=== PATIENT | male | born 1960 | race Caucasian/White ===

== ENCOUNTER → 2019-09-04 | Outpatient (CLI) | payer MEDICARE | LOC: LAB FS 15:03 | PROVIDERS: ATTEND Family Medicine | DX: R50.9 Fever, unspecified (principal) | CPT/HCPCS: 87040 ==

== ENCOUNTER → 2019-09-11 | Outpatient (CLI) | payer MEDICARE ==
--- NOTE | 2019-09-11 12:57 | Diagnostic Imaging Report ---
PROCEDURE: CT head without contrast. TECHNIQUE: Multiple contiguous axial images were obtained through the brain without the use of intravenous contrast. Auto Exposure Controls were utilized during the CT exam to meet ALARA standards for radiation dose reduction. INDICATION: Acute non-intractable headache x2 weeks. COMPARISON: None. FINDINGS: There is a 1.3 x 2.2 cm area of fairly well circumscribed decreased attenuation involving the medial left occipital lobe just medial to the occipital horn of the left lateral ventricle. There may be some focal ex vacuo dilatation of the adjacent posterior horn of the left lateral ventricle as well. Findings are suggestive of nonacute infarct. Small old lacunar infarcts involving the internal capsule and thalamus on the right are also noted. There is no suspicious loss of aguero-white matter junction differentiation to suggest an acute territorial infarct. There is no mass effect or midline shift. Ventricles and cortical sulci are otherwise diffusely prominent consistent with background age-related parenchymal volume loss. No intra or extra-axial intracranial hemorrhage is seen. No other extra-axial masses or fluid collections are identified. Bony calvarium is intact. Paranasal sinuses show mild scattered mucosal thickening. Mastoid air cells are clear. Left globe implant is noted. IMPRESSION: 1. No acute intracranial abnormality. No CT evidence of acute infarct, mass, nor hemorrhage. 2. 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 3. Background age-related parenchymal volume loss. Dictated by: Dictated on workstation # [id number]
== END ==
LOC: RAD FS 12:20
PROVIDERS: ATTEND Family Medicine
DX: G93.89 Other specified disorders of brain (principal); R51 Headache; Z86.73 Personal history of transient ischemic attack (TIA), and cerebral infarction without residual deficits
CPT/HCPCS: 70450

== ENCOUNTER 2020-01-21 01:51 | Emergency (ER) | payer MEDICARE ==
[~2020-01-21] VITALS: Ht 182.8 cm; Wt 61.3 kg
--- OUTSIDE RECORDS SUMMARY | 2020-01-21 01:56 | XMS REPORT | Continuity of Care Document ---
Author Organization Unknown Address Unknown Phone Unavailable Allergies There is no data. Medications There is no data. Problems Date Dx Coded Attending Type Code Diagnosis Diagnosed By 09/10/2019 SELF EJ SWAN Ot R50.9 FEVER, UNSPECIFIED 09/15/2019 SELF EJ SWAN Ot G93.89 OTHER SPECIFIED DISORDERS OF BRAIN 09/15/2019 SELF EJ SWAN Ot R51 HEADACHE 09/15/2019 SELF EJ SWAN Ot Z86.73 PRSNL HX OF TIA (TIA), AND CEREB INFRC W 09/25/2019 SELF EJ SWAN Ot R50.9 FEVER, UNSPECIFIED 10/07/2019 SELF EJ SWAN Ot G93.89 OTHER SPECIFIED DISORDERS OF BRAIN 10/07/2019 SELF EJ SWAN Ot R51 HEADACHE 10/07/2019 SELF EJ SWAN Ot Z86.73 PRSNL HX OF TIA (TIA), AND CEREB INFRC W Procedures There is no data. Results Test Result Range PDM - 09 PANEL (PROFILE 1) - 04/25/19 10 :02 Prescribed Drug 1 Clonazepam NRG Creatinine 141.9 mg/dL > or = 20.0 pH 7.49 4.5 - 9.0 Oxidant NEGATIVE mcg/mL <200 Amphetamines NEGATIVE ng/mL <500 medMATCH Amphetamines CONSISTENT NRG Benzodiazepines POSITIVE ng/mL <100 Marijuana Metabolite NEGATIVE ng/mL <20 medMATCH Marijuana Metab CONSISTENT NRG Cocaine Metabolite NEGATIVE ng/mL <150 medMATCH Cocaine Metab CONSISTENT NRG Opiates POSITIVE ng/mL <100 Oxycodone NEGATIVE ng/mL <100 medMATCH Oxycodone CONSISTENT NRG COMMENT NRG Alphahydroxyalprazolam 113 ng/mL <25 medMATCH aOH alprazolam INCONSISTENT NR G Alphahydroxymidazolam NEGATIVE ng/mL < 50 medMATCH aOH midazolam CONSISTENT NRG Alphahydroxytriazolam NEGATIVE ng/mL < 50 medMATCH aOH triazolam CONSISTENT NRG Aminoclonazepam NEGATIVE ng/mL <25 medMATCH Aminoclonazepam INCONSISTENT N RG Hydroxyethylflurazepam NEGATIVE ng/mL <50 medMATCH OH,Et flurazepam CONSISTENT NR G Lorazepam NEGATIVE ng/mL <50 medMATCH Lorazepam CONSISTENT NRG Nordiazepam NEGATIVE ng/mL <50 medMATCH Nordiazepam CONSISTENT NRG Oxazepam NEGATIVE ng/mL <50 medMATCH Oxazepam CONSISTENT NRG Temazepam NEGATIVE ng/mL <50 medMATCH Temazepam CONSISTENT NRG Codeine NEGATIVE ng/mL <50 medMATCH Codeine CONSISTENT NRG Hydrocodone 601 ng/mL <50 medMATCH Hydrocodone INCONSISTENT NRG Hydromorphone 298 ng/mL <50 medMATCH Hydromorphone INCONSISTENT NRG Morphine NEGATIVE ng/mL <50 medMATCH Morphine CONSISTENT NRG Norhydrocodone 1121 ng/mL <50 medMATCH Norhydrocodone INCONSISTENT NR G Barbiturates NEGATIVE ng/mL <300 medMATCH Barbiturates CONSISTENT NRG Methadone Metabolite NEGATIVE ng/mL <100 medMATCH Methadone Metab CONSISTENT NRG Phencyclidine NEGATIVE ng/mL <25 medMATCH Phencyclidine CONSISTENT NRG Bacterial blood culture - 09/04/19 15:25 Bacterial blood culture NG NRG ESR/SED RATE - 09/11/19 12:43 SED RATE BY MODIFIED WESTERGREN 2 mm/h < OR = 20 CRP - 09/11/19 12:43 C-REACTIVE PROTEIN 24.5 mg/L <8.0 KENYETTA - 09/24/19 10:42 KENYETTA SCREEN, IFA NEGATIVE NEGATIVE PDM - 09 PANEL (PROFILE 1) - 11/27/19 14 :22 Creatinine 90.9 mg/dL > or = 20.0 pH 7.1 4.5-9.0 Oxidant NEGATIVE mcg/mL <200 Amphetamines NEGATIVE ng/mL <500 medMATCH Amphetamines CONSISTENT NRG Benzodiazepines NEGATIVE ng/mL <100 medMATCH Benzodiazepines CONSISTENT NRG Marijuana Metabolite NEGATIVE ng/mL <20 medMATCH Marijuana Metab CONSISTENT NRG Cocaine Metabolite NEGATIVE ng/mL <150 medMATCH Cocaine Metab CONSISTENT NRG Opiates NEGATIVE ng/mL <100 medMATCH Opiates CONSISTENT NRG Oxycodone NEGATIVE ng/mL <100 medMATCH Oxycodone CONSISTENT NRG COMMENT NRG Barbiturates NEGATIVE ng/mL <300 medMATCH Barbiturates CONSISTENT NRG Methadone Metabolite NEGATIVE ng/mL <100 medMATCH Methadone Metab CONSISTENT NRG Phencyclidine NEGATIVE ng/mL <25 medMATCH Phencyclidine CONSISTENT NRG Encounters ACCT No. Visit Date/Time Discharge Status Pt. Type Provider Facility Loc./Unit Complaint [id number] 09/04/2019 15:00:00 09/04/2019 23:59: 59 [facility] [id number] 11/27/2019 13:40:00 Document Registration [id number] 09/24/2019 10:30:00 Document Registration [id number] 09/11/2019 09:40:00 Document Registration [id number] 04/25/2019 09:30:00 Document Registration [id number] 09/11/2019 12:20:00 23:59:59 CLS Outpatient SELF EJ SWAN [facility] RAD FS ACUTE NONINTRACTABLE HE ADACHE [id number] 09/04/2019 15:03:00 23:59:59 CLS Outpatient SELF EJ SWAN [facility] LAB FS R50.9
--- NOTE | 2020-01-21 02:15 | ED GI ---
General Chief Complaint: Abdominal/GI Problems Stated Complaint: VOMITING BLOOD Nursing Triage Note: Patient arrives via EMS with complaints of blood in his vomit. Patient does have a history and current issue with alcohol abuse. Patient states he drank 1 pint of hard liquor but doesn't state what it was. Patient states he has been vomiting blood for 1.5 days. Patient describes it as tinged with blood and denies vomiting blood only. Patient is uncooperative at times. Sepsis Screen: No Definite Risk History of Present Illness Date Seen by Provider: Jan 21, 2020 Time Seen by Provider: 01:45 Timing/Duration: 1-2 Days Severity/Quality: Mild Location: Generalized Abdomen Radiation: No Radiation Activities at Onset: None Modifying Factors: Improves With Eating, Improves With Vomiting Associated Symptoms: No Chest Pain, No Fatigue, No Headache, No Weakness Allergies and Home Medications Allergies Coded Allergies: No Known Drug Allergies (Unverified , 01/21/20) Patient Home Medication List Home Medication List Reviewed: Yes Review of Systems Review of Systems Constitutional: No chills, No dizziness, No fever EENTM: No Blurred Vision Respiratory: Denies Shortness of Air, Denies Wheezing Cardiovascular: Denies Chest Pain, Denies Irregular Heart Rate Gastrointestinal: Abdominal Pain; Denies Constipated, Denies Diarrhea; Nausea, Vomiting Genitourinary: Denies Burning, Denies Drainage Musculoskeletal: No back pain, No joint swelling Skin: No change in color, No rash Psychiatric/Neurological: Denies Headache, Denies Numbness, Denies Tingling Past Xthokbo-Mmrgpi-Ilwiud Hx Past Med/Social Hx: Reviewed Nursing Past Med/Soc Hx Patient Social History Recent Foreign Travel: No Contact w/Someone Who Travel: No Recent Infectious Disease Expo: No Physical Abuse: No Sexual Abuse: No Mistreated: No Fear: No Physical Exam Vital Signs Vital Signs - First Documented 01/21/20 01:51 Temp 36.9 Pulse 88 Resp 20 B/P (MAP) 130/76 (94) Pulse Ox 96 O2 Delivery Room Air Capillary Refill : Less Than 3 Seconds Height/Weight/BMI Height: '" Weight: lbs. oz. kg; 18.00 BMI Method: General Appearance: WD/WN, no apparent distress, other (thoroughly intoxicated) HEENT: PERRL/EOMI, normal ENT inspection, TMs normal, pharynx normal Neck: non-tender, full range of motion Respiratory: lungs clear, normal breath sounds Cardiovascular: regular rate, rhythm, no edema Gastrointestinal: normal bowel sounds, non tender, soft Extremities: normal range of motion, normal inspection Neurologic/Psychiatric: no motor/sensory deficits, normal mood/affect, oriented x 3, other (intoxicated) Skin: normal color, warm/dry Progress/Results/Core Measures Results/Orders Lab Results Laboratory Tests Test 01/21/20 02:20 Range/Units White Blood Count 7.6 4.3-11.0 10^3/uL Red Blood Count 4.13 L 4.35-5.85 10^6/uL Hemoglobin 13.5 13.3-17.7 G/DL Hematocrit 42 40-54 % Mean Corpuscular Volume 101 H 80-99 FL Mean Corpuscular Hemoglobin 33 25-34 PG Mean Corpuscular Hemoglobin Concent 33 32-36 G/DL Red Cell Distribution Width 13.3 10.0-14.5 % Platelet Count 218 130-400 10^3/uL Mean Platelet Volume 9.3 7.4-10.4 FL Neutrophils (%) (Auto) 39 L 42-75 % Lymphocytes (%) (Auto) 41 12-44 % Monocytes (%) (Auto) 7 0-12 % Eosinophils (%) (Auto) 11 H 0-10 % Basophils (%) (Auto) 1 0-10 % Neutrophils # (Auto) 3.0 1.8-7.8 X 10^3 Lymphocytes # (Auto) 3.1 1.0-4.0 X 10^3 Monocytes # (Auto) 0.5 0.0-1.0 X 10^3 Eosinophils # (Auto) 0.9 H 0.0-0.3 10^3/uL Basophils # (Auto) 0.1 0.0-0.1 10^3/uL Prothrombin Time 13.1 12.2-14.7 SEC INR Comment 1.0 0.8-1.4 Activated Partial Thromboplast Time 28 24-35 SEC Sodium Level 146 H 135-145 MMOL/L Potassium Level 3.8 3.6-5.0 MMOL/L Chloride Level 107 98-107 MMOL/L Carbon Dioxide Level 25 21-32 MMOL/L Anion Gap 14 5-14 MMOL/L Blood Urea Nitrogen 12 7-18 MG/DL Creatinine 0.97 0.60-1.30 MG/DL Estimat Glomerular Filtration Rate > 60 BUN/Creatinine Ratio 12 Glucose Level 86 70-105 MG/DL Calcium Level 8.8 8.5-10.1 MG/DL Corrected Calcium 8.7 8.5-10.1 MG/DL Total Bilirubin 0.2 0.1-1.0 MG/DL Aspartate Amino Transf (AST/SGOT) 14 5-34 U/L Alanine Aminotransferase (ALT/SGPT) 9 0-55 U/L Alkaline Phosphatase 46 40-136 U/L Total Protein 6.9 6.4-8.2 GM/DL Albumin 4.1 3.2-4.5 GM/DL Serum Alcohol 294 H <10 MG/DL My Orders Orders - JANEY ALTAMIRANO JR, MD Cbc With Automated Diff (01/21/20 02:11) Comprehensive Metabolic Panel (01/21/20 02:11) Alcohol (01/21/20 02:11) Protime With Inr (01/21/20 02:11) Partial Thromboplastin Time (01/21/20 02:11) Chest 1 View Ap/Pa Only (01/21/20 02:11) Vital Signs/I&O 01/21/20 01:51 Temp 36.9 Pulse 88 Resp 20 B/P (MAP) 130/76 (94) Pulse Ox 96 O2 Delivery Room Air Blood Pressure Mean: 94 Progress Progress Note : Time: 03:05 Progress Note Blood work looks good except for alcohol level being 294 discussed above blood streaking in the vomitus and will follow up with primary care physician no other evidence of issues at this time Departure Impression Primary Impression: Alcohol abuse Disposition: 01 HOME, SELF-CARE Condition: Stable Departure-Patient Inst. Referrals: EJ LUI MD (PCP/Family) Primary Care Physician Patient Instructions: Effects of Alcohol on Your Health, Alcohol Abuse and Alcoholism (DC) JANEY ALTAMIRANO JR, MD Jan 21, 2020 02:15
[2020-01-21 02:43] LABS: WHITE BLOOD COUNT 7.6 10^3/uL (4.3-11.0)
[2020-01-21 02:44] LABS: BASOPHILS % (AUTO) 1 % (0-10); EOSINOPHILS % (AUTO) 11 % (0-10); HEMATOCRIT 42 % (40-54); HEMOGLOBIN 13.5 G/DL (13.3-17.7); LYMPHOCYTES % (AUTO) 41 % (12-44); MEAN CORPUSCULAR HEMOGLOBIN 33 PG (25-34); MEAN CORPUSCULAR HGB CONC 33 G/DL (32-36); MEAN CORPUSCULAR VOLUME 101 FL (80-99); MEAN PLATELET VOLUME 9.3 FL (7.4-10.4); MONOCYTES % (AUTO) 7 % (0-12); NEUTROPHILS % (AUTO) 39 % (42-75); PLATELET COUNT 218 10^3/uL (130-400); RED CELL DISTRIBUTION WIDTH 13.3 % (10.0-14.5)
[2020-01-21 02:45] LABS: BASOPHILS # (AUTO) 0.1 10^3/uL (0.0-0.1); EOSINOPHILS # (AUTO) 0.9 10^3/uL (0.0-0.3); LYMPHOCYTES # (AUTO) 3.1 X 10^3 (1.0-4.0); MONOCYTES # (AUTO) 0.5 X 10^3 (0.0-1.0)
[2020-01-21 02:58] LABS: CHLORIDE 107 MMOL/L (98-107); POTASSIUM 3.8 MMOL/L (3.6-5.0); PROTHROMBIN TIME PATIENT 13.1 SEC (12.2-14.7); SODIUM 146 MMOL/L (135-145)
[2020-01-21 02:59] LABS: ALANINE AMINOTRANSFERASE 9 U/L (0-55); ALBUMIN 4.1 GM/DL (3.2-4.5); ALKALINE PHOSPHATASE 46 U/L (40-136); BILIRUBIN,TOTAL 0.2 MG/DL (0.1-1.0); BUN/CREATININE RATIO 12; CALCIUM 8.8 MG/DL (8.5-10.1); CARBON DIOXIDE 25 MMOL/L (21-32); CREATININE SERUM 0.97 MG/DL (0.60-1.30); GFR ESTIMATED > 60; GLUCOSE 86 MG/DL (70-105); TOTAL PROTEIN 6.9 GM/DL (6.4-8.2)
[2020-01-21 03:10] VITALS: BP 126/82
[2020-01-21] MEDS ORDERED: ACETAMINOPHEN 500 MG TAB (TYLENOL) PO ONE (03:15)
--- NOTE | 2020-01-21 06:30 | Diagnostic Imaging Report ---
INDICATION: Shortness of breath. Hemoptysis. FINDINGS: Deformities of the right lateral ribs appears old in nature. The lungs are well aerated. No acute infiltrates are demonstrated. There is question of possible pulmonary nodules mid right lung. No pneumothorax or pleural effusion. Heart is not enlarged. IMPRESSION: 1. Question of pulmonary nodules right mid lung. 2. Rib deformities right lateral chest likely old in nature. No previous studies for comparison. Dictated by: Dictated on workstation # [id number]
== END 2020-01-21 03:10 | disposition home or self-care (01) ==
LOC: ER FS 01:51
DX: F10.10 Alcohol abuse, uncomplicated (principal); Y90.8 Blood alcohol level of 240 mg/100 ml or more
CPT/HCPCS: 36415; 71045; 80053; 80320; 85025; 85610; 85730

== ENCOUNTER 2020-02-03 18:09 | Inpatient (IN) | payer OTHER, MEDICARE ==
[~2020-02-03] VITALS: Ht 152.4 cm; Wt 62.3 kg
[2020-02-03] MEDS ORDERED: NS IV 1000 ML 1,000 ML IV STA (18:18)
[2020-02-03] MEDS ORDERED: ONDANSETRON 4 MG/2 ML (SDV) Z0FRAN ONE (18:23)
--- NOTE | 2020-02-03 18:26 | ED Cardiac General ---
History of Present Illness General Chief Complaint: Cardiac/General Problems Stated Complaint: BLOOD PRESSURE History of Present Illness Date Seen by Provider: Feb 03, 2020 Time Seen by Provider: 18:23 Initial Comments This patient is a 59-year-old male that recently been residing in the [facility] long-term presents to the emergency department with fever nausea vomiting diarrhea low blood pressure. Patient states she did have a fever 101 in the long-term. On arrival does have a fever 101. Patient appears to be tachycardic with heart rate in the 120s. And low blood pressure. 98 systolic. Patient has long history of alcoholism and is on multiple medications for anxiety including Klonopin and BuSpar. Patient however has not had any his medications in a couple weeks since he has been residing in the [facility]. Patient was brought to the emergency department with police and EMS. With complaints of nausea vomiting diarrhea. Patient states unable to keep anything down. We'll do medical evaluation treatment is needed. Timing/Duration: 1 day Activities at Onset: none Associated Systoms: Denies Symptoms; No Chest Pain, No Cough, No Diaphoresis; Fever/Chills; No Headaches, No Loss of Appetite, No Malaise; Nausea/Vomiting; No Rash, No Seizure, No Shortness of Air, No Syncope, No Weakness, No Other Allergies and Home Medications Allergies Coded Allergies: No Known Drug Allergies (Unverified , 01/21/20) Patient Home Medication List Home Medication List Reviewed: Yes Review of Systems Review of Systems Constitutional: No no symptoms reported; see HPI; No chills, No diaphoresis, No dizziness; fever; No malaise, No weakness, No weight gain, No weight loss, No other EENTM: No No Symptoms Reported; See HPI; No Blurred Vision, No Double Vision, No Eye Pain, No Eye Tearing, No Ear Drainage, No Ear Pain, No Mouth Pain, No Mouth Swelling, No Nose Congestion, No Nose Pain, No Throat Pain, No Throat Swelling, No Other Respiratory: Denies No Symptoms Reported, Denies See HPI, Denies Cough, Denies Orthopnea, Denies Shortness of Air, Denies SOA With Exertion, Denies SOA at Rest, Denies Stridor, Denies Wheezing, Denies Other Cardiovascular: Denies No Symptoms Reported, Denies See HPI, Denies Chest Pain, Denies Edema, Denies Irregular Heart Rate; Lightheadedness; Denies Palpitations, Denies Syncope, Denies Other Gastrointestinal: Denies No Symptoms Reported; See HPI; Denies Abdomen Dis tended, Denies Abdominal Pain, Denies Blood Streaked Stools, Denies Constipated; Diarrhea; Denies Difficulty Swallowing; Nausea; Denies Poor Appetite, Denies Poor Fluid Intake, Denies Rectal Bleeding; Vomiting; Denies Other Musculoskeletal: No no symptoms reported, No see HPI, No back pain, No gout, No joint pain, No joint swelling, No muscle pain, No muscle stiffness, No muscle cramps, No muscle twitching, No muscle weakness, No neck pain, No other Skin: No no symptoms reported, No see HPI, No change in color, No change in hair/nails, No dryness, No hx of skin cancer, No lesions, No lumps, No pruritus, No rash, No other Past Jtvcwkd-Ffpuvr-Icgdvd Hx Patient Social History Alcohol Use: Regular Use Number of Drinks Today: GG Alcohol Beverage of Choice: Whiskey Recreational Drug Use: No Smoking Status: Current Everyday Smoker Type Used: Cigarettes 2nd Hand Smoke Exposure: No Recent Foreign Travel: No Physical Abuse: No Sexual Abuse: No Mistreated: No Fear: No Past Medical History Surgeries: No Respiratory: Yes COPD Cardiac: Yes Neurological: No Genitourinary: No Gastrointestinal: No Musculoskeletal: No Endocrine: No HEENT: No Cancer: No Psychosocial: No Integumentary: No Physical Exam Vital Signs Vital Signs - First Documented 02/03/20 18:25 Temp 38.8 Pulse 114 Resp 18 B/P (MAP) 93/49 (64) Pulse Ox 97 O2 Delivery Room Air Capillary Refill : Height, Weight, BMI Height: '" Weight: lbs. oz. kg; 18.00 BMI Method: General Appearance: No Apparent Distress, WD/WN HEENT: PERRL/EOMI, TMs Normal, Normal ENT Inspection, Pharynx Normal Neck: Full Range of Motion, Normal Inspection, Non Tender Respiratory: Chest Non Tender, Lungs Clear, Normal Breath Sounds, No Accessory Muscle Use, No Respiratory Distress Cardiovascular: No Edema, No Gallop, No JVD, No Murmur, Normal Peripheral Pulses, Tachycardia Gastrointestinal: Normal Bowel Sounds, No Organomegaly, No Pulsatile Mass, Non Tender Extremity: Normal Capillary Refill, Normal Inspection, Normal Range of Motion, Non Tender, No Calf Tenderness, No Pedal Edema Neurologic/Psychiatric: Alert, Oriented x3, No Motor/Sensory Deficits, Normal Mood/Affect Focused Exam Lactate Level 02/03/20 18:40: Lactic Acid Level 1.05 Lactic Acid Level Laboratory Tests Test 02/03/20 18:40 Lactic Acid Level 1.05 MMOL/L (0.50-2.00) Progress/Results/Core Measures Results/Orders Lab Results Laboratory Tests Test 02/03/20 18:40 02/03/20 19:50 Range/Units White Blood Count 11.5 H 4.3-11.0 10^3/uL Red Blood Count 4.14 L 4.35-5.85 10^6/uL Hemoglobin 13.5 13.3-17.7 G/DL Hematocrit 41 40-54 % Mean Corpuscular Volume 99 80-99 FL Mean Corpuscular Hemoglobin 33 25-34 PG Mean Corpuscular Hemoglobin Concent 33 32-36 G/DL Red Cell Distribution Width 13.4 10.0-14.5 % Platelet Count 201 130-400 10^3/uL Mean Platelet Volume 9.6 7.4-10.4 FL Neutrophils (%) (Auto) 69 42-75 % Lymphocytes (%) (Auto) 14 12-44 % Monocytes (%) (Auto) 17 H 0-12 % Eosinophils (%) (Auto) 0 0-10 % Basophils (%) (Auto) 0 0-10 % Neutrophils # (Auto) 7.9 H 1.8-7.8 X 10^3 Lymphocytes # (Auto) 1.6 1.0-4.0 X 10^3 Monocytes # (Auto) 1.9 H 0.0-1.0 X 10^3 Eosinophils # (Auto) 0.0 0.0-0.3 10^3/uL Basophils # (Auto) 0.0 0.0-0.1 10^3/uL Sodium Level 135 135-145 MMOL/L Potassium Level 3.4 L 3.6-5.0 MMOL/L Chloride Level 99 98-107 MMOL/L Carbon Dioxide Level 23 21-32 MMOL/L Anion Gap 13 5-14 MMOL/L Blood Urea Nitrogen 5 L 7-18 MG/DL Creatinine 0.87 0.60-1.30 MG/DL Estimat Glomerular Filtration Rate > 60 BUN/Creatinine Ratio 6 Glucose Level 116 H 70-105 MG/DL Lactic Acid Level 1.05 0.50-2.00 MMOL/L Calcium Level 8.4 L 8.5-10.1 MG/DL Corrected Calcium 8.8 8.5-10.1 MG/DL Total Bilirubin 0.8 0.1-1.0 MG/DL Aspartate Amino Transf (AST/SGOT) 14 5-34 U/L Alanine Aminotransferase (ALT/SGPT) 8 0-55 U/L Alkaline Phosphatase 42 40-136 U/L Total Protein 6.3 L 6.4-8.2 GM/DL Albumin 3.5 3.2-4.5 GM/DL Amylase Level 33 25-125 U/L Lipase 17 8-78 U/L Urine Color YELLOW Urine Clarity CLEAR Urine pH 7.0 5-9 Urine Specific Victor 1.010 L 1.016-1.022 Urine Protein NEGATIVE NEGATIVE Urine Glucose (UA) NEGATIVE NEGATIVE Urine Ketones 1+ H NEGATIVE Urine Nitrite NEGATIVE NEGATIVE Urine Bilirubin NEGATIVE NEGATIVE Urine Urobilinogen 0.2 < = 1.0 MG/DL Urine Leukocyte Esterase NEGATIVE NEGATIVE Urine RBC (Auto) NEGATIVE NEGATIVE Urine RBC NONE /HPF Urine WBC NONE /HPF Urine Squamous Epithelial Cells 0-2 /HPF Urine Crystals NONE /LPF Urine Bacteria NONE /HPF Urine Casts NONE /LPF Urine Mucus NEGATIVE /LPF Urine Culture Indicated NO Urine Opiates Screen NEGATIVE NEGATIVE Urine Oxycodone Screen NEGATIVE NEGATIVE Urine Methadone Screen NEGATIVE NEGATIVE Urine Propoxyphene Screen NEGATIVE NEGATIVE Urine Barbiturates Screen NEGATIVE NEGATIVE Ur Tricyclic Antidepressants Screen NEGATIVE NEGATIVE Urine Phencyclidine Screen NEGATIVE NEGATIVE Urine Amphetamines Screen NEGATIVE NEGATIVE Urine Methamphetamines Screen NEGATIVE NEGATIVE Urine Benzodiazepines Screen NEGATIVE NEGATIVE Urine Cocaine Screen NEGATIVE NEGATIVE Urine Cannabinoids Screen NEGATIVE NEGATIVE Micro Results Microbiology 02/03/20 Influenza Types A,B Antigen (JACKI) - Final, Complete My Orders Orders - VINAYAK SHOEMAKER MD Comprehensive Metabolic Panel (02/03/20 18:18) Lipase (02/03/20 18:18) Amylase (02/03/20 18:18) Ua Culture If Indicated (02/03/20 18:18) Ed Iv/Invasive Line Start (02/03/20 18:18) Acute Abd Series (02/03/20 18:18) Cbc With Automated Diff (02/03/20 18:18) Ns Iv 1000 Ml (Sodium Chloride 0.9%) (02/03/20 18:18) Acetaminophen Tablet/Caplet (Tylenol T (02/03/20 18:30) Blood Culture (02/03/20 18:23) Lactic Acid Analyzer (02/03/20 18:20) Influenza A And B Antigens (02/03/20 18:20) Ekg Tracing (02/03/20 18:20) Drug Screen Stat (Urine) (02/03/20 18:28) Ondansetron Injection (Zofran Injectio (02/03/20 18:30) Ondansetron Injection (Zofran Injectio (02/03/20 18:23) Blood Culture (02/03/20 18:50) Ns Iv 1000 Ml (Sodium Chloride 0.9%) (02/03/20 20:00) Medications Given in ED Current Medications Medications Dose Ordered Sig/Glory Route Start Time Stop Time Status Last Admin Dose Admin Acetaminophen 650 mg ONCE ONCE PO 02/03/20 18:30 02/03/20 18:32 DC 02/03/20 18:31 650 MG Ondansetron HCl 4 mg ONCE ONCE IVP 02/03/20 18:30 02/03/20 18:32 DC 02/03/20 18:28 4 MG Vital Signs/I&O 02/03/20 02/03/20 18:25 18:31 Temp 38.8 38.8 Pulse 114 Resp 18 B/P (MAP) 93/49 (64) Pulse Ox 97 O2 Delivery Room Air Progress Progress Note : Time: 20:25 Progress Note Patient is much improved after IV fluid bolus. Vital signs are stabilized the pressure is 196/66 heart rate 94 patient states his long history of low blood pressure running in the upper 90s. Patient is doing much improved I did discuss at length with Dr. Ordonez who is accepted this patient for transfer to [facility]. We did discuss the patient's presentation patient does lack any upper respiratory type symptoms however chest x-ray does show a bronchiolitis type presentation. Dr. Ordonez requests that we do swab for COVID- 19. Patient be transported to [facility] for transfer as soon as possible. Initial ECG Impression Date: Feb 03, 2020 Initial ECG Impression Time: 18:29 Initial ECG Rate: 111 Initial ECG Rhythm: S.Tach Initial ECG Intervals: Normal Initial ECG Impression: Normal, Nonspecific Changes Comment Sinus arrhythmia and sinus tachycardia heart rate 111 Departure Impression Primary Impression: Viral gastroenteritis Additional Impressions: Fever Hypotension Disposition: 02 XFER SHT-TRM HOSP Condition: Stable Transfer Transfer Reason: Exceeds level of care Time Spoke to Accepting Phy: 20:30 Transfer Progress Notes Patient is much improved after IV fluid bolus. Vital signs are stabilized the pressure is 196/66 heart rate 94 patient states his long history of low blood pressure running in the upper 90s. Patient is doing much improved I did discuss at length with Dr. Ordonez who is accepted this patient for transfer to [facility]. We did discuss the patient's presentation patient does lack any upper respiratory type symptoms however chest x-ray does show a bronchiolitis type presentation. Dr. Ordonez requests that we do swab for COVID- 19. Patient be transported to [facility] for transfer as soon as possible. Transfer Facility: [facility] Method of Transfer: EMS Departure-Patient Inst. Referrals: EJ LUI MD (PCP/Family) Primary Care Physician VINAYAK SHOEMAKER MD Feb 03, 2020 18:26
[2020-02-03] MEDS ORDERED: ACETAMINOPHEN 325 MG TABLET PO ONE (18:30)
[2020-02-03] MEDS ORDERED: ONDANSETRON 4 MG/2 ML (SDV) Z0FRAN IVP ONE (18:30)
[2020-02-03 18:58] LABS: HEMATOCRIT 41 % (40-54); HEMOGLOBIN 13.5 G/DL (13.3-17.7); MEAN CORPUSCULAR HEMOGLOBIN 33 PG (25-34); WHITE BLOOD COUNT 11.5 10^3/uL (4.3-11.0)
[2020-02-03 18:59] LABS: BASOPHILS % (AUTO) 0 % (0-10); EOSINOPHILS % (AUTO) 0 % (0-10); LYMPHOCYTES # (AUTO) 1.6 X 10^3 (1.0-4.0); LYMPHOCYTES % (AUTO) 14 % (12-44); MEAN CORPUSCULAR HGB CONC 33 G/DL (32-36); MEAN CORPUSCULAR VOLUME 99 FL (80-99); MEAN PLATELET VOLUME 9.6 FL (7.4-10.4); MONOCYTES # (AUTO) 1.9 X 10^3 (0.0-1.0); MONOCYTES % (AUTO) 17 % (0-12); NEUTROPHILS # (AUTO) 7.9 X 10^3 (1.8-7.8); NEUTROPHILS % (AUTO) 69 % (42-75); PLATELET COUNT 201 10^3/uL (130-400); RED CELL DISTRIBUTION WIDTH 13.4 % (10.0-14.5)
[2020-02-03 19:17] LABS: ALANINE AMINOTRANSFERASE 8 U/L (0-55); ALBUMIN 3.5 GM/DL (3.2-4.5); ALKALINE PHOSPHATASE 42 U/L (40-136); AMYLASE 33 U/L (25-125); BILIRUBIN,TOTAL 0.8 MG/DL (0.1-1.0); BUN/CREATININE RATIO 6; CALCIUM 8.4 MG/DL (8.5-10.1); CARBON DIOXIDE 23 MMOL/L (21-32); CHLORIDE 99 MMOL/L (98-107); CREATININE SERUM 0.87 MG/DL (0.60-1.30); GFR ESTIMATED > 60; GLUCOSE 116 MG/DL (70-105); LIPASE 17 U/L (8-78); POTASSIUM 3.4 MMOL/L (3.6-5.0); SODIUM 135 MMOL/L (135-145); TOTAL PROTEIN 6.3 GM/DL (6.4-8.2)
--- OUTSIDE RECORDS SUMMARY | 2020-02-03 19:24 | XMS REPORT | Continuity of Care Document ---
Author Organization Unknown Address Unknown Phone Unavailable Allergies Active Description Code Type Severity Reaction Onset Reported/Identified Relationship to Patient Clinical Status Yes No Known Drug Allergies [id number] Drug Allergy Unknown N/A 01/21/2020 Medications There is no data. Problems Date [...] OF TIA (TIA), AND CEREB INFRC W 01/21/2020 SELF EJ SWAN Ot G93.89 OTHER SPECIFIED DISORDERS OF BRAIN 01/21/2020 SELF EJ SWAN Ot R51 HEADACHE 01/21/2020 SELF EJ SWAN Ot Z86.73 PRSNL HX OF TIA (TIA), AND CEREB INFRC W 01/21/2020 SELF EJ SWAN Ot R50.9 FEVER, UNSPECIFIED 01/23/2020 JANEY ALTAMIRANO MD Ot F10.10 ALCOHOL ABUSE, UNCOMPLICATED 01/23/2020 JANEY ALTAMIRANO MD Ot Y90.8 BLOOD ALCOHOL LEVEL OF 240 MG/100 ML OR Procedures There is no data. Results Test [...] NEGATIVE ng/mL <25 medMATCH Phencyclidine CONSISTENT NRG Complete blood count (CBC) with automate d white blood cell (WBC) differential - 01/21/20 02:20 Blood leukocytes automated count (number/volume) 7.6 10*3/uL 4.3-11.0 Blood erythrocytes automated count (number/volume) 4.13 10*6/uL 4.35-5.85 Venous blood hemoglobin measurement (mass/volume) 13.5 g/dL 13.3-17.7 Blood hematocrit (volume fraction) 42 % 40-54 Automated erythrocyte mean corpuscular volume 101 [foz_us] 80-99 Automated erythrocyte mean corpuscular h emoglobin (mass per erythrocyte) 33 pg 25-34 Automated erythrocyte mean corpuscular h emoglobin concentration measurement (mass/volume) 33 g/dL 32-36 Automated erythrocyte distribution width ratio 13. 3 % 10.0- 14.5 Automated blood platelet count (count/volume) 218 10*3/uL 130-400 Automated blood platelet mean volume measurement 9.3 [foz_us] 7.4-10.4 Automated blood neutrophils/100 leukocytes 39 % 42-75 Automated blood lymphocytes/100 leukocytes 41 % 12-44 Blood monocytes/100 leukocytes 7 % 0-12 Automated blood eosinophils/100 leukocytes 11 % 0-10 Automated blood basophils/100 leukocytes 1 % 0-10 Blood neutrophils automated count (number/volume) 3.0 10*3 1.8-7.8 Blood lymphocytes automated count (number/volume) 3.1 10*3 1.0-4.0 Blood monocytes automated count (number/volume) 0. 5 10*3 0.0-1.0 Automated eosinophil count 0.9 10*3/uL 0 .0-0.3 Automated blood basophil count (count/volume) 0.1 10*3/uL 0.0-0.1 PT panel in platelet poor plasma by coag ulation assay - 01/21/20 02:20 Prothrombin time (PT) in platelet poor plasma by coagu lation assay 13.1 s 12.2-14.7 INR in platelet poor plasma or blood by coagulation as say 1.0 0.8-1.4 Activated partial thromboplastin time (a PTT) in platelet poor plasma bycoagulation assay - 01/21/20 02:20 Activated partial thromboplastin time (a PTT) in platelet poor plasma bycoagulation assay 28 s 24-35 Comprehensive metabolic panel - 01/21/20 02:20 Serum or plasma sodium measurement (moles/volume) 146 mmol/L 135-145 Serum or plasma potassium measurement (moles/volume) 3.8 mmol/L 3.6-5.0 Serum or plasma chloride measurement (moles/volume) 107 mmol/L 98-107 Carbon dioxide 25 mmol/L 21-32 Serum or plasma anion gap determination (moles/volume) 14 mmol/L 5-14 Serum or plasma urea nitrogen measurement (mass/volume ) 12 mg/dL 7-18 Serum or plasma creatinine measurement (mass/volume) 0.97 mg/dL 0.60-1.30 Serum or plasma urea nitrogen/creatinine mass ratio 12 NRG Serum or plasma creatinine measurement w ith calculation of estimated glomerular filtration rate > NRG Serum or plasma glucose measurement (mass/volume) 86 mg/dL 70-105 Serum or plasma calcium measurement (mass/volume) 8.8 mg/dL 8.5-10.1 Serum or plasma total bilirubin measurement (mass/volu me) 0.2 mg/dL 0.1-1.0 Serum or plasma alkaline phosphatase guevara surement (enzymatic activity/volume) 46 U/L 40-136 Serum or plasma aspartate aminotransfera se measurement (enzymatic activity/volume) 14 U/L 5-34 Serum or plasma alanine aminotransferase measurement (enzymatic activity/volume) 9 U/L 0-55 Serum or plasma protein measurement (mass/volume) 6.9 g/dL 6.4-8.2 Serum or plasma albumin measurement (mass/volume) 4.1 g/dL 3.2-4.5 CALCIUM CORRECTED 8.7 mg/dL 8.5-10.1 Serum or plasma ethanol measurement (mas s/volume) - 01/21/20 02:20 Serum or plasma ethanol measurement (mass/volume) 294 mg/dL <10 Encounters ACCT No. Visit Date/Time Discharge Status Pt. Type Provider Facility Loc./Unit Complaint [id number] 01/21/2020 10:00:00 01/21/2020 23:59: 59 EFSTUS Outpatient EJ LUI [facility] [id number] 11/27/2019 13:40:00 Document Registration [id number] 09/24/2019 10:30:00 Document Registration [id number] 09/11/2019 09:40:00 Document Registration [id number] 04/25/2019 09:30:00 Document Registration [id number] 01/21/2020 01:51:00 03:10:00 DIS Outpatient JANEY ALTAMIRANO MD [facility] ER FS VOMITING BLOOD [id number] 09/11/2019 12:20:00 23:59:59 CLS Outpatient EJ LUI MD [facility] RAD FS ACUTE NONINTRACTABLE HE ADACHE [id number] 09/04/2019 15:03:00 23:59:59 CLS Outpatient EJ LUI MD [facility] LAB FS R50.9
[2020-02-03] MEDS ORDERED: NS IV 1000 ML 1,000 ML IV SCH (20:00)
[2020-02-03 20:08] LABS: CLARITY,URINE CLEAR; COLOR,URINE YELLOW; GLUCOSE, URINE (UA) NEGATIVE (NEGATIVE); PROTEIN,URINE NEGATIVE (NEGATIVE)
[2020-02-03 20:09] LABS: BILIRUBIN,URINE NEGATIVE (NEGATIVE); KETONES,URINE 1+ (NEGATIVE); LEUKOCYTE ESTERASE ,URINE NEGATIVE (NEGATIVE); NITRITE,URINE NEGATIVE (NEGATIVE); SQUAMOUS EPITHELIAL CELL,UR 0-2 /HPF
--- NOTE | 2020-02-03 20:12 | Diagnostic Imaging Report ---
Patient History: Cough. Abdominal pain.. Technique: 3 views of the chest and abdomen were performed. Comparison: 01/21/2020. FINDINGS: Interval increase in mildly prominent perihilar interstitial markings are seen. No focal consolidation. No pleural effusion or pneumothorax. Stable cardiac silhouette. No acute osseous abnormalities. Included abdomen demonstrates no evidence of bowel obstruction or large collections of free intraperitoneal air. A scattered amount of air and stool seen in the colon. Severe degenerative changes are seen in the left hip. No acute fracture or dislocation is seen. No radiopaque foreign bodies are visualized. IMPRESSION: 1. Increased prominent perihilar interstitial markings, which may represent bronchitis/bronchiolitis. No focal consolidations. No pleural effusion. 2. No evidence of bowel obstruction or large collections of free intraperitoneal air. 3. Severe degenerative changes in the left hip. Dictated by: Dictated on workstation # [id number]
[2020-02-03 20:16] LABS: AMPHETAMINE SCREEN, URINE NEGATIVE (NEGATIVE); BARBITURATE SCREEN URINE NEGATIVE (NEGATIVE); BENZODIAZEPINES SCREEN URINE NEGATIVE (NEGATIVE); CANNABINOID SCREEN, URINE NEGATIVE (NEGATIVE); COCAINE SCREEN URINE NEGATIVE (NEGATIVE); METHADONE STAT NEGATIVE (NEGATIVE); METHAMPHETAMINE SCREEN URINE S NEGATIVE (NEGATIVE); OPIATE SCREEN URINE NEGATIVE (NEGATIVE); OXYCODONE STAT NEGATIVE (NEGATIVE); PROPOXYPHENE STAT NEGATIVE (NEGATIVE); TRICYCLIC ANTIDEPRESSANTS SCRE NEGATIVE (NEGATIVE)
--- OUTSIDE RECORDS SUMMARY | 2020-02-03 21:11 | XMS REPORT | Continuity of Care Document ---
Author Organization Unknown Address Unknown Phone Unavailable Allergies Active Description Code Type Severity Reaction Onset Reported/Identified Relationship to Patient Clinical Status Yes No Known Drug Allergies [id number] Drug Allergy Unknown N/A 01/21/2020 Medications There [...] Status Pt. Type Provider Facility Loc./Unit Complaint [id number] 01/21/2020 10:00:00 01/21/2020 23:59: 59 [facility]STUS Outpatient EJ LUI [facility] [id number] 11/27/2019 13:40:00 Document Registration [id number] 09/24/2019 10:30:00 Document Registration [id number] 09/11/2019 09:40:00 Document Registration [id number] 04/25/2019 09:30:00 Document Registration [id number] 01/21/2020 01:51:00 03:10:00 DIS Outpatient JANEY ALTAMIRANO MD [facility] ER FS VOMITING BLOOD [id number] 09/11/2019 12:20:00 23:59:59 CLS Outpatient EJ LUI MD [facility] RAD FS ACUTE NONINTRACTABLE HE ADACHE [id number] 09/04/2019 15:03:00 23:59:59 CLS Outpatient EJ LUI MD [facility] LAB FS R50.9
--- NOTE | 2020-02-03 22:40 | NUR ---
WESLEY ZAVALA JR. admitted to room 432-1, with an admitting diagnosis of GASTROENTERITIS AND PUI, on 02/03/20 from [facility] via , accompanied by EMS STAFF.WESLEY ZAVALA JR. introduced to surroundings, call light, bed controls, phone, TV, temperature control, lights, meal times, smoking policy, visitor policy, side rail policy, bathrooms and showers. Patient Rights given to patient in the handbook. WESLEY ZAVALA JR. verbalizes understanding that [facility] is not responsible for the loss or damage to any personal effects or valuables that are kept in the patients posession during their hospitalization.WESLEY ZAVALA JR. verbalizes understanding of Interdisciplinary Patient Education. Patient and/or family were informed about the Rapid Response Team and its purpose.
[2020-02-03 22:45] VITALS: BP 122/68
--- NOTE | 2020-02-03 22:54 | NUR ---
CALL TO [facility] FOR CLARIFICATION ON ORDERS. PT SENT WITH INCOMPLETE ORDERS. NEW ORDERS OBTAINED. DIET CHANGED FROM REGULAR TO CLD. FLUIDS WILL BE INCREASED TO 250ML/HR FOR 1L THEN DECREASED BACK TO 150ML/HR CONTINUOUS. NEW LABS ORDERED STAT. SEE ORDER HISTORY.
[2020-02-03] MEDS ORDERED: ONDANSETRON 4 MG/2 ML (SDV) Z0FRAN IV PRN (23:00)
[2020-02-03] MEDS ORDERED: POTASSIUM CL 10MEQ/50ML IVPB 200 ML IV ONE (23:15)
[2020-02-03] MEDS ORDERED: ACETAMINOPHEN 500 MG TAB (TYLENOL) ONE (23:15)
[2020-02-03] MEDS: ACETAMINOPHEN 500 MG TAB (TYLENOL) PO PRN (23:29)
[2020-02-03] MEDS: POTASSIUM CL 10MEQ/50ML IVPB 50 ML IV SCH (23:29)
[2020-02-03] MEDS: NS IV 1000 ML 1,000 ML IV SCH (23:29)
[2020-02-03 23:45] VITALS: BP 107/67
[2020-02-04] MEDS: POTASSIUM CL 10MEQ/50ML IVPB 50 ML IV SCH ×3 (00:26→02:46)
--- NOTE | 2020-02-04 00:36 | NUR ---
WHEN THIS RN RECEIVED NOTIFICATION OF THIS PT'S ADMISSION. QI SPECIALIST STATES, "PT IS MALE, LAST NAME FRIEND, COMING FROM [facility] ED- DIAGNOSIS GASTROENTERITIS. PT ALSO HAS A COUGH AND FEVER SO HE WILL BE PUI." UPON PT ARRIVAL, PT WAS PLACED IN DROPLET ISOLATION. WHEN ASSESSING LAB RESULTS THIS RN NOTES THAT THERE IS NO "COVID- PENDING" IN PT'S LABS. THIS RN THEN CALLS TO CONFIRM WITH LAB THAT THERE HAS BEEN NO COVID SWAB ENTERED INTO THE COMPUTER NOR IS THERE AN ORDER. THIS RN THEN OPENS ED REPORT AND READS "DR. SEBASTIAN REQUESTS THAT WE DO SWAB FOR COVID 19." THIS RN THEN CALLS DR SEBASTIAN TO CONFIRM ORDER FOR SWAB.
[2020-02-04] MEDS: NS IV 1000 ML 1,000 ML IV SCH (02:46)
[2020-02-04 03:58] VITALS: BP 102/60
[2020-02-04 04:07] LABS: BASOPHILS % (AUTO) 0 % (0-10); EOSINOPHILS # (AUTO) 0.1 10^3/uL (0.0-0.3); EOSINOPHILS % (AUTO) 1 % (0-10); HEMATOCRIT 37 % (40-54); HEMOGLOBIN 12.1 G/DL (13.3-17.7); LYMPHOCYTES # (AUTO) 1.3 X 10^3 (1.0-4.0); LYMPHOCYTES % (AUTO) 24 % (12-44); MEAN CORPUSCULAR HEMOGLOBIN 32 PG (25-34); MEAN CORPUSCULAR HGB CONC 32 G/DL (32-36); MEAN CORPUSCULAR VOLUME 100 FL (80-99); MEAN PLATELET VOLUME 9.7 FL (7.4-10.4); MONOCYTES # (AUTO) 0.9 X 10^3 (0.0-1.0); MONOCYTES % (AUTO) 17 % (0-12); NEUTROPHILS # (AUTO) 3.1 X 10^3 (1.8-7.8); NEUTROPHILS % (AUTO) 57 % (42-75); PLATELET COUNT 156 10^3/uL (130-400); RED CELL DISTRIBUTION WIDTH 13.9 % (10.0-14.5); WHITE BLOOD COUNT 5.4 10^3/uL (4.3-11.0)
[2020-02-04 04:23] LABS: ALANINE AMINOTRANSFERASE 8 U/L (0-55); ALBUMIN 3.2 GM/DL (3.2-4.5); ALKALINE PHOSPHATASE 32 U/L (40-136); BILIRUBIN,TOTAL 0.4 MG/DL (0.1-1.0); BUN/CREATININE RATIO 7; CALCIUM 7.5 MG/DL (8.5-10.1); CARBON DIOXIDE 18 MMOL/L (21-32); CHLORIDE 114 MMOL/L (98-107); CREATININE SERUM 0.73 MG/DL (0.60-1.30); GFR ESTIMATED > 60; GLUCOSE 101 MG/DL (70-105); POTASSIUM 3.9 MMOL/L (3.6-5.0); SODIUM 142 MMOL/L (135-145); TOTAL PROTEIN 5.5 GM/DL (6.4-8.2)
[2020-02-04] MEDS ORDERED: FLU QUADRIvalent (5+ YOA) 2019-2020 (AFLURIA) 0.5 ML IM ONE (07:00)
[2020-02-04] MEDS ORDERED: LACTATED RINGERS 1,000 ML IV SCH (07:30)
[2020-02-04 08:00] VITALS: BP 148/82
[2020-02-04] MEDS: ACETAMINOPHEN 500 MG TAB (TYLENOL) PO PRN (08:13)
[2020-02-04] MEDS ORDERED: ENOXAPARIN 40 MG/0.4 ML (LOVENOX) SYR SC SCH (09:00)
[2020-02-04] MEDS ORDERED: IBUPROFEN 600 MG (MOTRIN) TAB PO NR (10:30)
--- NOTE | 2020-02-04 10:34 | Discharge Summary ---
Discharge Summary Hospital Course Was the Problem List Reviewed?: Yes Problems/Dx: (1) Viral gastroenteritis Status: Acute Hospital Course Date of Admission: Feb 03, 2020 at 20:30 Admission Diagnosis : Viral gastroenteritis Family Physician/Provider: Mitchell Beltran MD Date of Discharge: 02/04/20 Discharge Diagnosis: Viral gastroenteritis Hospital Course: Ketty Fried is a 59-year-old male who presented with fever, nausea, vomiting, and diarrhea. He was very dehydrated on arrival. He was given symptomatic treatment and supportive care with IV fluids. His symptoms all resolved prior to discharge. Due to his fever he was tested for coronavirus and this was pending at the time of discharge. He was instructed to self quarantine at home. He will be contacted regarding the results. He should follow-up with his primary care physician in about 2 weeks. Labs and Pending Lab Test: Laboratory Tests 02/03/20 18:40: White Blood Count 11.5H, Red Blood Count 4.14L, Hemoglobin 13.5, Hematocrit 41, Mean Corpuscular Volume 99, Mean Corpuscular Hemoglobin 33, Mean Corpuscular Hemoglobin Concent 33, Red Cell Distribution Width 13.4, Platelet Count 201, Mean Platelet Volume 9.6, Neutrophils (%) (Auto) 69, Lymphocytes (%) (Auto) 14, Monocytes (%) (Auto) 17H, Eosinophils (%) (Auto) 0, Basophils (%) (Auto) 0, Neutrophils # (Auto) 7.9H, Lymphocytes # (Auto) 1.6, Monocytes # (Auto) 1.9H, Eosinophils # (Auto) 0.0, Basophils # (Auto) 0.0, Sodium Level 135, Potassium Level 3.4L, Chloride Level 99, Carbon Dioxide Level 23, Anion Gap 13, Blood Urea Nitrogen 5L, Creatinine 0.87, Estimat Glomerular Filtration Rate > 60, BUN/Creatinine Ratio 6, Glucose Level 116H, Lactic Acid Level 1.05, Calcium Level 8.4L, Corrected Calcium 8.8, Total Bilirubin 0.8, Aspartate Amino Transf (AST/SGOT) 14, Alanine Aminotransferase (ALT/SGPT) 8, Alkaline Phosphatase 42, Total Protein 6.3L, Albumin 3.5, Amylase Level 33, Lipase 17 02/03/20 19:50: Urine Color YELLOW, Urine Clarity CLEAR, Urine pH 7.0, Urine Specific [place] 1.010L, Urine Protein NEGATIVE, Urine Glucose (UA) NEGATIVE, Urine Ketones 1+H, Urine Nitrite NEGATIVE, Urine Bilirubin NEGATIVE, Urine Urobilinogen 0.2, Urine Leukocyte Esterase NEGATIVE, Urine RBC (Auto) NEGATIVE, Urine RBC NONE, Urine WBC NONE, Urine Squamous Epithelial Cells 0-2, Urine Crystals NONE, Urine Bacteria NONE, Urine Casts NONE, Urine Mucus NEGATIVE, Urine Culture Indicated NO, Urine Opiates Screen NEGATIVE, Urine Oxycodone Screen NEGATIVE, Urine Methadone Screen NEGATIVE, Urine Propoxyphene Screen NEGATIVE, Urine Barbiturates Screen NEGATIVE, Ur Tricyclic Antidepressants Screen NEGATIVE, Urine Phencyclidine Screen NEGATIVE, Urine Amphetamines Screen NEGATIVE, Urine Methamphetamines Screen NEGATIVE, Urine Benzodiazepines Screen NEGATIVE, Urine Cocaine Screen NEGATIVE, Urine Cannabinoids Screen NEGATIVE 02/03/20 20:25: Coronavirus (COVID-19)(PCR) [Pending], Group A Streptococcus Screen NEGATIVE 02/03/20 23:40: C-Reactive Protein High Sensitivity 5.79H, Procalcitonin 0.09 02/03/20 23:45: Adenovirus (PCR) [Pending], Human Metapneumovirus (PCR) [Pending], Influenza Virus Type A (PCR) [Pending], Influenza Virus Type B (PCR) [Pending], Parai nfluenza Type 1 (PCR) [Pending], Parainfluenza Type 2 (PCR) [Pending], Parainfluenza Type 3 (PCR) [Pending], Respiratory Syncytial Virus (PCR) [Pending] 02/04/20 03:00: White Blood Count 5.4, Red Blood Count 3.73L, Hemoglobin 12.1L, Hematocrit 37L, Mean Corpuscular Volume 100H, Mean Corpuscular Hemoglobin 32, Mean Corpuscular Hemoglobin Concent 32, Red Cell Distribution Width 13.9, Platelet Count 156, An n Platelet Volume 9.7, Neutrophils (%) (Auto) 57, Lymphocytes (%) (Auto) 24, Monocytes (%) (Auto) 17H, Eosinophils (%) (Auto) 1, Basophils (%) (Auto) 0, Neutrophils # (Auto) 3.1, Lymphocytes # (Auto) 1.3, Monocytes # (Auto) 0.9, Eosinophils # (Auto) 0.1, Basophils # (Auto) 0.0, Sodium Level 142, Potassium Level 3.9, Chloride Level 114#H, Carbon Dioxide Level 18L, Anion Gap 10, Blood Urea Nitrogen 5L, Creatinine 0.73, Estimat Glomerular Filtration Rate > 60, BUN/Creatinine Ratio 7, Glucose Level 101, Calcium Level 7.5L, Corrected Calcium 8.1L, Total Bilirubin 0.4, Aspartate Amino Transf (AST/SGOT) 8, Alanine Aminotransferase (ALT/SGPT) 8, Alkaline Phosphatase 32L, Total Protein 5.5L, Albumin 3.2 Microbiology 02/03/20 Influenza Types A,B Antigen (JACKI) - Final, Complete Assessment/Pt Instructions Take medications as prescribed. You will be required to self quarantine at home. The health department will be in contact with you about your test results. He should follow-up with her primary care physician in 2 weeks. Discharge Planning: <30 minutes discharge planning Discharge Instructions Discharge Diet: No Restrictions Activity as Tolerated: Yes Pneumonia Vaccine Order Indica: Yes Discharge Physical Examination Vital Signs Vital Signs Date Time Temp Pulse Resp B/P (MAP) Pulse Ox O2 Delivery O2 Flow Rate FiO2 02/04/20 08:00 36.6 73 18 148/82 (104) 100 Room Air General Appearance: No Apparent Distress, Anxious Respiratory: Lungs Clear, Normal Breath Sounds, No Respiratory Distress Cardiovascular: Regular Rate, Rhythm, No Edema, No Murmur Gastrointestinal: Normal Bowel Sounds, Non Tender, Soft Extremity: Normal Inspection, Non Tender, No Pedal Edema Skin: Normal Color, Warm/Dry Neurologic/Psychiatric: Alert, Oriented x3 Allergies: Coded Allergies: No Known Drug Allergies (Unverified , 01/21/20) Copy Copies To 1: MAGALI SEBASTIAN MD Discharge Summary Date of Admission Feb 03, 2020 at 20:30 Date of Discharge Discharge Date: Feb 04, 2020 Discharge Time: 10:33 Admission Diagnosis Viral gastroenteritis Discharge Diagnosis (1) Viral gastroenteritis Status: Acute Clinical Quality Measures DVT/VTE Risk/Contraindication: Risk Factor Score Per Nursin RFS Level Per Nursing on Admit: 2=Moderate HARMONY NICHOLSON MD Feb 04, 2020 10:34
--- NOTE | 2020-02-04 11:28 | NUR ---
FLU VAC HELD AT THIS TIME BECAUSE PT. HAD A 101.8 TEMP AT 2200 LAST NIGHT. PT HAS NOT BEEN 24 HRS WITHOUT A FEVER. INSTRUCTED PT. TO GO TO HIS PCP AND GET THE FLU VAC.
[2020-02-04 12:30] VITALS: BP 138/72
--- NOTE | 2020-02-04 14:24 | NUR ---
UNABLE TO FIND A PLACE FOR PT. TO STAY. PT. STATED HE WOULD CALL AROUND.
[2020-02-04 18:07] VITALS: BP 138/72
--- NOTE | 2020-02-05 08:23 | NUR ---
(late entry) CM/SS finalized discharge plan. This plan was completed with BRIAN Xiao and JOMAR Bragg. Plan: The patient was transported by Uber from the hospital to [place] to withdrawal money to pay for a hotel room. Summary: The patient was unable to find a family member or friend to help with transportation from the hospital and a place to stay. The patient was just released from [facility] upon admission to the hospital. The patient was unable to think of anyone else to call or a safe place to stay. CM/SS discussed with the patient if he had any financial resources. The patient was unsure and believed he only had a few dollars. CM/SS let the patient use this SS work phone to call the bank and get current savings account balance. The patient stated he had $353 dollars in his bank account and would be getting paid on 02/05/20. CM/SS attempted to use many different resources for transportation such as: [employer] cab (only one sheet pile driver operator and in [place] at time), Police Department (unwilling to assist with transportation due to COVID-19), his sister Nicole's phone number of [phone] (had a restraining order against him), and Hospital security (not able to leave his station). The patient contacted a girlfriend and a friend on his own who both stated he could not come stay with them. The patient did not have any other resources. Dameon Bragg, and this SS were able to contact administration to help formulate a plan. The patient just needed to get to the bank before closing time at 6 p.m. to withdrawal money for a hotel room. The patient did not have a checking account or bank card to use. An [employer] sheet pile driver operator was contacted and provided the patient a ride [facility]. No further needs or questions at this time.
[2020-02-05] MEDS ORDERED: FAMO-119 PO (11:28)
[2020-02-05] MEDS ORDERED: ONDA4TAB11 SL (11:28)
[2020-02-05 14:21] LABS: RSV PCR TEST Not Detected (Not Detected)
== END 2020-02-04 18:10 | disposition home or self-care (01) | DRG 392 ==
LOC: EDUNIT# 18:09 → ER FS 18:11 → 4TH 20:30
PROVIDERS: ADMIT Family Medicine; ATTEND Family Medicine
DX: A08.4 Viral intestinal infection, unspecified (principal); E86.0 Dehydration; I95.9 Hypotension, unspecified; R00.0 Tachycardia, unspecified; J44.9 Chronic obstructive pulmonary disease, unspecified; F10.20 Alcohol dependence, uncomplicated; F41.9 Anxiety disorder, unspecified; R91.8 Other nonspecific abnormal finding of lung field; F17.210 Nicotine dependence, cigarettes, uncomplicated; Z20.818 Contact with and (suspected) exposure to other bacterial communicable diseases
CPT/HCPCS: 36415; 74022; 80053; 80306; 81000; 82150; 83605; 83690; 84145; 85025; 86141; 87040; 87430; 87631; 87635; 87804; 93005

== ENCOUNTER 2020-02-05 10:11 | Emergency (ER) | payer MEDICARE, OTHER ==
[~2020-02-05] VITALS: Ht 182.9 cm; Wt 70.5 kg
[2020-02-05] MEDS ORDERED: LACTATED RINGERS 1,000 ML IV ONE (10:17)
--- OUTSIDE RECORDS SUMMARY | 2020-02-05 10:21 | XMS REPORT | Continuity of Care Document ---
Author Organization Unknown Address Unknown Phone Unavailable Allergies Active Description Code Type Severity Reaction Onset Reported/Identified Relationship to Patient Clinical Status Yes No Known Drug Allergies [id number] Drug Allergy Unknown N/A 01/21/2020 Medications There [...] ALCOHOL LEVEL OF 240 MG/100 ML OR 02/04/2020 MAGALI SEBASTIAN MD Ot A08 .4 VIRAL INTESTINAL INFECTION, UNSPECIFIED 02/04/2020 MAGALI SEBASTIAN MD Ot E86 .0 DEHYDRATION 02/04/2020 MAGALI SEBASTIAN MD Ot F10.20 ALCOHOL DEPENDENCE, UNCOMPLICATED 02/04/2020 MAGALI SEBASTIAN MD Ot F17.210 NICOTINE DEPENDENCE, CIGARETTES, UNCOMPL 02/04/2020 MAGALI SEBASTIAN MD Ot F41 .9 ANXIETY DISORDER, UNSPECIFIED 02/04/2020 MAGALI SEBASTIAN MD Ot I95 .9 HYPOTENSION, UNSPECIFIED 02/04/2020 MAGALI SEBASTIAN MD Ot J44 .9 CHRONIC OBSTRUCTIVE PULMONARY DISEASE, U 02/04/2020 MAGALI SEBASTIAN MD Ot R00 .0 TACHYCARDIA, UNSPECIFIED 02/04/2020 MAGALI SEBASTIAN MD Ot R91 .8 OTHER NONSPECIFIC ABNORMAL FINDING OF FARAZ 02/04/2020 MAGALI SEBASTIAN MD Ot Z20.818 CONTACT W AND EXPOSURE TO OTH BACT COMMU Procedures There is no data. Results Test [...] plasma ethanol measurement (mass/volume) 294 mg/dL <10 Complete blood count (CBC) with automate d white blood cell (WBC) differential - 02/03/20 18:40 Blood leukocytes automated count (number/volume) 11.5 10*3/uL 4.3-11.0 Blood erythrocytes automated count (number/volume) 4.14 10*6/uL 4.35-5.85 Venous blood hemoglobin measurement (mass/volume) 13.5 g/dL 13.3-17.7 Blood hematocrit (volume fraction) 41 % 40-54 Automated erythrocyte mean corpuscular volume 99 [ foz_us] 80-99 Automated erythrocyte mean corpuscular h emoglobin (mass per erythrocyte) 33 pg 25-34 Automated erythrocyte mean corpuscular h emoglobin concentration measurement (mass/volume) 33 g/dL 32-36 Automated erythrocyte distribution width ratio 13. 4 % 10.0- 14.5 Automated blood platelet count (count/volume) 201 10*3/uL 130-400 Automated blood platelet mean volume measurement 9.6 [foz_us] 7.4-10.4 Automated blood neutrophils/100 leukocytes 69 % 42-75 Automated blood lymphocytes/100 leukocytes 14 % 12-44 Blood monocytes/100 leukocytes 17 % 0-12 Automated blood eosinophils/100 leukocytes 0 % 0-10 Automated blood basophils/100 leukocytes 0 % 0-10 Blood neutrophils automated count (number/volume) 7.9 10*3 1.8-7.8 Blood lymphocytes automated count (number/volume) 1.6 10*3 1.0-4.0 Blood monocytes automated count (number/volume) 1. 9 10*3 0.0-1.0 Automated eosinophil count 0.0 10*3/uL 0 .0-0.3 Automated blood basophil count (count/volume) 0.0 10*3/uL 0.0-0.1 Blood lactic acid measurement (moles/vol ume) - 02/03/20 18:40 Blood lactic acid measurement (moles/volume) 1.05 mmol/L 0.50-2.00 Comprehensive metabolic panel - 02/03/20 18:40 Serum or plasma sodium measurement (moles/volume) 135 mmol/L 135-145 Serum or plasma potassium measurement (moles/volume) 3.4 mmol/L 3.6-5.0 Serum or plasma chloride measurement (moles/volume) 99 mmol/L 98-107 Carbon dioxide 23 mmol/L 21-32 Serum or plasma anion gap determination (moles/volume) 13 mmol/L 5-14 Serum or plasma urea nitrogen measurement (mass/volume ) 5 mg/dL 7-18 Serum or plasma creatinine measurement (mass/volume) 0.87 mg/dL 0.60-1.30 Serum or plasma urea nitrogen/creatinine mass ratio 6 NRG Serum or plasma creatinine measurement w ith calculation of estimated glomerular filtration rate > NRG Serum or plasma glucose measurement (mass/volume) 116 mg/dL 70-105 Serum or plasma calcium measurement (mass/volume) 8.4 mg/dL 8.5-10.1 Serum or plasma total bilirubin measurement (mass/volu me) 0.8 mg/dL 0.1-1.0 Serum or plasma alkaline phosphatase guevara surement (enzymatic activity/volume) 42 U/L 40-136 Serum or plasma aspartate aminotransfera se measurement (enzymatic activity/volume) 14 U/L 5-34 Serum or plasma alanine aminotransferase measurement (enzymatic activity/volume) 8 U/L 0-55 Serum or plasma protein measurement (mass/volume) 6.3 g/dL 6.4-8.2 Serum or plasma albumin measurement (mass/volume) 3.5 g/dL 3.2-4.5 CALCIUM CORRECTED 8.8 mg/dL 8.5-10.1 Serum or plasma amylase measurement (enz ymatic activity/volume) - 02/03/20 18:40 Serum or plasma amylase measurement (enzymatic activit y/volume) 33 U/L 25-125 Lipase - 02/03/20 18:40 Lipase 17 U/L 8-78 Influenza virus A and B antigen detectio n - 02/03/20 19:05 FLU RESULT NEGATIVE FOR INFLUENZA A AND B ANTIGENS BY IA NRG Complete urinalysis with reflex to cultu re - 02/03/20 19:50 Urine color determination YELLOW NRG Urine clarity determination CLEAR NR G Urine pH measurement by test strip 7.0 5-9 Specific gravity of urine by test strip 1.010 1.016-1.022 Urine protein assay by test strip, semi-quantitative NEGATIVE NEGATIVE Urine glucose detection by automated test strip NE GATIVE NEGATIVE Erythrocytes detection in urine sediment by light micr oscopy NEGATIVE NEGATIVE Urine ketones detection by automated test strip 1+ NEGATIVE Urine nitrite detection by test strip NEGATIVE NEGATIVE Urine total bilirubin detection by test strip NEGA TIVE NEGATIVE Urine urobilinogen measurement by automated test strip (mass/volume) 0.2 mg/dL < = 1.0 Urine leukocyte esterase detection by dipstick NEG ATIVE NEGATIVE Automated urine sediment erythrocyte cou nt by microscopy (number/high power field) NONE NRG Automated urine sediment leukocyte count by microscopy (number/high power field) NONE NRG Bacteria detection in urine sediment by light microsco py NONE NRG Squamous epithelial cells detection in u rine sediment by light microscopy 0-2 NRG Crystals detection in urine sediment by light microsco py NONE NRG Casts detection in urine sediment by light microscopy NONE NRG Mucus detection in urine sediment by light microscopy NEGATIVE NRG Complete urinalysis with reflex to culture NO NRG Urine drug screening test - 02/03/20 19: 50 Urine phencyclidine detection by screening method NEGATIVE NEGATIVE Urine benzodiazepines detection by screening method NEGATIVE NEGATIVE Urine cocaine detection NEGATIVE NEGATI VE Urine amphetamines detection by screening method N EGATIVE NEGATIVE Urine methamphetamine detection by screening method NEGATIVE NEGATIVE Urine cannabinoids detection by screening method N EGATIVE NEGATIVE Urine opiates detection by screening method NEGATI VE NEGATIVE Urine barbiturates detection NEGATIVE N EGATIVE Screening urine tricyclic antidepressants detection NEGATIVE NEGATIVE Urine methadone detection by screening method NEGA TIVE NEGATIVE Urine oxycodone detection NEGATIVE NEGA TIVE Urine propoxyphene detection NEGATIVE N EGATIVE Streptococcus pyogenes antigen detection - 02/03/20 20:25 Streptococcus pyogenes antigen detection NEGATIVE NEGATIVE SARS-CoV-2 PCR (RML) - 02/03/20 20:25 Coronavirus Ab [Units/volume] in Serum Negative Negative Bacterial throat culture - 02/03/20 20:2 5 Bacterial throat culture NBS NRG PROCALCITONIN (PCT) - 02/03/20 23:40 PROCALCITONIN (PCT) 0.09 ng/mL <0.10 Serum or plasma C reactive protein measu rement (mass/volume) - 02/03/20 23:40 Serum or plasma C reactive protein measurement (mass/v olume) 5.79 mg/dL 0.00-0.50 Complete blood count (CBC) with automate d white blood cell (WBC) differential - 02/04/20 03:00 Blood leukocytes automated count (number/volume) 5.4 10*3/uL 4.3-11.0 Blood erythrocytes automated count (number/volume) 3.73 10*6/uL 4.35-5.85 Venous blood hemoglobin measurement (mass/volume) 12.1 g/dL 13.3-17.7 Blood hematocrit (volume fraction) 37 % 40-54 Automated erythrocyte mean corpuscular volume 100 [foz_us] 80-99 Automated erythrocyte mean corpuscular h emoglobin (mass per erythrocyte) 32 pg 25-34 Automated erythrocyte mean corpuscular h emoglobin concentration measurement (mass/volume) 32 g/dL 32-36 Automated erythrocyte distribution width ratio 13. 9 % 10.0- 14.5 Automated blood platelet count (count/volume) 156 10*3/uL 130-400 Automated blood platelet mean volume measurement 9.7 [foz_us] 7.4-10.4 Automated blood neutrophils/100 leukocytes 57 % 42-75 Automated blood lymphocytes/100 leukocytes 24 % 12-44 Blood monocytes/100 leukocytes 17 % 0-12 Automated blood eosinophils/100 leukocytes 1 % 0-10 Automated blood basophils/100 leukocytes 0 % 0-10 Blood neutrophils automated count (number/volume) 3.1 10*3 1.8-7.8 Blood lymphocytes automated count (number/volume) 1.3 10*3 1.0-4.0 Blood monocytes automated count (number/volume) 0. 9 10*3 0.0-1.0 Automated eosinophil count 0.1 10*3/uL 0 .0-0.3 Automated blood basophil count (count/volume) 0.0 10*3/uL 0.0-0.1 Comprehensive metabolic panel - 02/04/20 03:00 Serum or plasma sodium measurement (moles/volume) 142 mmol/L 135-145 Serum or plasma potassium measurement (moles/volume) 3.9 mmol/L 3.6-5.0 Serum or plasma chloride measurement (moles/volume) 114 mmol/L 98-107 Carbon dioxide 18 mmol/L 21-32 Serum or plasma anion gap determination (moles/volume) 10 mmol/L 5-14 Serum or plasma urea nitrogen measurement (mass/volume ) 5 mg/dL 7-18 Serum or plasma creatinine measurement (mass/volume) 0.73 mg/dL 0.60-1.30 Serum or plasma urea nitrogen/creatinine mass ratio 7 NRG Serum or plasma creatinine measurement w ith calculation of estimated glomerular filtration rate > NRG Serum or plasma glucose measurement (mass/volume) 101 mg/dL 70-105 Serum or plasma calcium measurement (mass/volume) 7.5 mg/dL 8.5-10.1 Serum or plasma total bilirubin measurement (mass/volu me) 0.4 mg/dL 0.1-1.0 Serum or plasma alkaline phosphatase guevara surement (enzymatic activity/volume) 32 U/L 40-136 Serum or plasma aspartate aminotransfera se measurement (enzymatic activity/volume) 8 U/L 5-34 Serum or plasma alanine aminotransferase measurement (enzymatic activity/volume) 8 U/L 0-55 Serum or plasma protein measurement (mass/volume) 5.5 g/dL 6.4-8.2 Serum or plasma albumin measurement (mass/volume) 3.2 g/dL 3.2-4.5 CALCIUM CORRECTED 8.1 mg/dL 8.5-10.1 Encounters ACCT No. Visit Date/Time Discharge Status Pt. Type Provider Facility Loc./Unit Complaint [id number] 01/21/2020 10:00:00 01/21/2020 23:59: 59 CLS Outpatient [facility]EL[facility] [id number] 11/27/2019 13:40:00 Document Registration [id number] 09/24/2019 10:30:00 Document Registration [id number] 09/11/2019 09:40:00 Document Registration [id number] 04/25/2019 09:30:00 Document Registration [id number] 02/03/2020 20:30:00 18:10:00 DIS Outpatient ROMULO SWAN, MAGALI Finch [facility] 4TH BLOOD PRESSURE [id number] 01/21/2020 01:51:00 03:10:00 DIS Outpatient ADARSH SWAN, JANEY Lu [facility] ER FS VOMITING BLOOD [id number] 09/11/2019 12:20:00 23:59:59 CLS Outpatient SELF EJ SWAN [facility] RAD FS ACUTE NONINTRACTABLE HE ADACHE [id number] 09/04/2019 15:03:00 23:59:59 CLS Outpatient SELF EJ SWAN [facility] LAB FS R50.9
[2020-02-05 10:25] LABS: BASOPHILS % (AUTO) 0 % (0-10); EOSINOPHILS # (AUTO) 0.1 10^3/uL (0.0-0.3); EOSINOPHILS % (AUTO) 2 % (0-10); HEMATOCRIT 37 % (40-54); HEMOGLOBIN 12.3 G/DL (13.3-17.7); LYMPHOCYTES # (AUTO) 1.3 X 10^3 (1.0-4.0); LYMPHOCYTES % (AUTO) 20 % (12-44); MEAN CORPUSCULAR HEMOGLOBIN 33 PG (25-34); MEAN CORPUSCULAR HGB CONC 33 G/DL (32-36); MEAN CORPUSCULAR VOLUME 98 FL (80-99); MEAN PLATELET VOLUME 9.5 FL (7.4-10.4); MONOCYTES # (AUTO) 0.8 X 10^3 (0.0-1.0); MONOCYTES % (AUTO) 13 % (0-12); NEUTROPHILS # (AUTO) 4.2 X 10^3 (1.8-7.8); NEUTROPHILS % (AUTO) 66 % (42-75); PLATELET COUNT 188 10^3/uL (130-400); RED CELL DISTRIBUTION WIDTH 13.7 % (10.0-14.5); WHITE BLOOD COUNT 6.4 10^3/uL (4.3-11.0)
[2020-02-05] MEDS ORDERED: KETOROLAC 30 MG/ML VIAL IVP ONE (10:30)
[2020-02-05] MEDS ORDERED: FAMOTIDINE 20MG/2ML IV (PEPCID) IVP ONE (10:30)
[2020-02-05] MEDS ORDERED: ONDANSETRON 4 MG/2 ML (SDV) Z0FRAN IVP ONE (10:30)
--- NOTE | 2020-02-05 10:35 | NUR ---
WHILE IN ROOM GIVING MEDS PATIENT REPORTS I WISH I WOULD OF HAD YOU PUT THE IV IN THE OTHER SIDE. BECAUSE THIS IS THE HAND I USE. I INFOMRED IF PROBABLY WOULD NOT BE A ADMIT,HIS RESPONE WAS WILL WHERE WILL I GO. THAN.
[2020-02-05 10:51] LABS: ALANINE AMINOTRANSFERASE 10 U/L (0-55); ALBUMIN 3.8 GM/DL (3.2-4.5); ALKALINE PHOSPHATASE 37 U/L (40-136); BILIRUBIN,TOTAL 0.3 MG/DL (0.1-1.0); BUN/CREATININE RATIO 6; CALCIUM 8.6 MG/DL (8.5-10.1); CARBON DIOXIDE 21 MMOL/L (21-32); CHLORIDE 106 MMOL/L (98-107); CREATININE SERUM 0.78 MG/DL (0.60-1.30); GFR ESTIMATED > 60; GLUCOSE 132 MG/DL (70-105); MAGNESIUM 1.6 MG/DL (1.6-2.4); POTASSIUM 3.1 MMOL/L (3.6-5.0); SODIUM 136 MMOL/L (135-145); TOTAL PROTEIN 6.6 GM/DL (6.4-8.2)
[2020-02-05] MEDS ORDERED: NS IV 1000 ML 1,000 ML IV ONE (10:51)
[2020-02-05] MEDS ORDERED: POTASSIUM CL 10MEQ/50ML IVPB 50 ML IV ONE (11:00)
--- NOTE | 2020-02-05 11:01 | ED General ---
General Chief Complaint: Cough/Cold/Flu Symptoms Stated Complaint: HEADACHE Nursing Triage Note: Pt to room #5 via [facility] ems cart from [address] with c/o cough et headache. Upon arrival pt reports he was discharged from this facility on 02/04/20 after testing negative for COVID-19. Pt noted to be afebrile during triage with dry, forced cough noted. Pt reports after being discharged from this facility on 02/04/20 he was unable to find a ride back home to [place] and states, "I slept in the streets, I'm gonna get pneumonia!" A&OX4. Nursing Sepsis Screen: Possible Severe Sepsis Risk Source of Information: Patient, Old Records Exam Limitations: No Limitations History of Present Illness Date Seen by Provider: Feb 05, 2020 Time Seen by Provider: 10:13 Initial Comments This 59-year-old man presents to the emergency room with complaints of headache. He had been admitted here on February 02 for vomiting and diarrhea. Workup was fairly unremarkable including testing for COVID-19 which was negative. Patient had no permanent dependable residents to go home to. He was assisted with getting to a local hotel. Today he activated EMS to bring him to the emergency room because of headache and persistent vomiting. He admittedly is also looking for a ride back to [place]. He admits to being an alcoholic and states he cannot remember when his last alcoholic drink was. EMS reported temperature 100.4, but he is afebrile on presentation. When asked about cough or shortness of breath he responds "I'm always short of breath". Allergies and Home Medications Allergies Coded Allergies: No Known Drug Allergies (Unverified , 01/21/20) Home Medications Famotidine 20 Mg Tablet, 20 MG PO BID Prescribed by: NIDIA CABRERA on 02/05/20 1128 Ondansetron 4 Mg Tab.rapdis, 4 MG SL Q4H PRN for NAUSEA/VOMITING Prescribed by: NIDIA CABRERA on 02/05/20 1128 Patient Home Medication List Home Medication List Reviewed: Yes Review of Systems Review of Systems Constitutional: see HPI EENTM: no symptoms reported Respiratory: see HPI Cardiovascular: no symptoms reported Gastrointestinal: see HPI Genitourinary: no symptoms reported Musculoskeletal: no symptoms reported Skin: no symptoms reported Psychiatric/Neurological: See HPI Hematologic/Lymphatic: No Symptoms Reported Immunological/Allergic: no symptoms reported Past Mbswrdp-Ifueby-Kuvnko Hx Past Med/Social Hx: Reviewed Nursing Past Med/Soc Hx Patient Social History Alcohol Use: Regular Use Number of Drinks Today: 0 Alcohol Beverage of Choice: Whiskey Recreational Drug Use: No Smoking Status: Current Everyday Smoker Type Used: Cigarettes 2nd Hand Smoke Exposure: No Recent Foreign Travel: No Contact w/Someone Who Travel: No Recent Infectious Disease Expo: No Recent Hopitalizations: Yes (Discharged 02/04/20 (rule out COVID-19)) Past Medical History Surgeries: No Respiratory: Yes COPD Cardiac: Yes Neurological: No Genitourinary: No Gastrointestinal: No Musculoskeletal: No Endocrine: No HEENT: No Cancer: No Psychosocial: Yes (Alcoholic, no permanent residence) Integumentary: No Physical Exam Vital Signs Vital Signs - First Documented Capillary Refill : Less Than 3 Seconds Height, Weight, BMI Height: '" Weight: lbs. oz. 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 Norm as Tested Skin: Normal Color, Warm/Dry Progress/Results/Core Measures Suspected Sepsis Recent Fever Within 48 Hours: Yes Infection Criteria Present: Suspected New Infection New/Unexplained Altered Menta: No Sepsis Screen: Possible Severe Sepsis Risk SIRS Temperature: Pulse: 96 Respiratory Rate: 18 Laboratory Tests 02/05/20 10:20: White Blood Count 6.4 Blood Pressure 114 /85 Mean: 95 Laboratory Tests 02/05/20 10:20: Creatinine 0.78, Platelet Count 188, Total Bilirubin 0.3 Results/Orders Lab Results Laboratory Tests Test 02/05/20 10:20 02/05/20 11:30 Range/Units White Blood Count 6.4 4.3-11.0 10^3/uL Red Blood Count 3.77 L 4.35-5.85 10^6/uL Hemoglobin 12.3 L 13.3-17.7 G/DL Hematocrit 37 L 40-54 % Mean Corpuscular Volume 98 80-99 FL Mean Corpuscular Hemoglobin 33 25-34 PG Mean Corpuscular Hemoglobin Concent 33 32-36 G/DL Red Cell Distribution Width 13.7 10.0-14.5 % Platelet Count 188 130-400 10^3/uL Mean Platelet Volume 9.5 7.4-10.4 FL Neutrophils (%) (Auto) 66 42-75 % Lymphocytes (%) (Auto) 20 12-44 % Monocytes (%) (Auto) 13 H 0-12 % Eosinophils (%) (Auto) 2 0-10 % Basophils (%) (Auto) 0 0-10 % Neutrophils # (Auto) 4.2 1.8-7.8 X 10^3 Lymphocytes # (Auto) 1.3 1.0-4.0 X 10^3 Monocytes # (Auto) 0.8 0.0-1.0 X 10^3 Eosinophils # (Auto) 0.1 0.0-0.3 10^3/uL Basophils # (Auto) 0.0 0.0-0.1 10^3/uL Sodium Level 136 135-145 MMOL/L Potassium Level 3.1 L 3.6-5.0 MMOL/L Chloride Level 106 98-107 MMOL/L Carbon Dioxide Level 21 21-32 MMOL/L Anion Gap 9 5-14 MMOL/L Blood Urea Nitrogen 5 L 7-18 MG/DL Creatinine 0.78 0.60-1.30 MG/DL Estimat Glomerular Filtration Rate > 60 BUN/Creatinine Ratio 6 Glucose Level 132 H 70-105 MG/DL Calcium Level 8.6 8.5-10.1 MG/DL Corrected Calcium 8.8 8.5-10.1 MG/DL Magnesium Level 1.6 1.6-2.4 MG/DL Total Bilirubin 0.3 0.1-1.0 MG/DL Aspartate Amino Transf (AST/SGOT) 15 5-34 U/L Alanine Aminotransferase (ALT/SGPT) 10 0-55 U/L Alkaline Phosphatase 37 L 40-136 U/L C-Reactive Protein High Sensitivity 6.15 H 0.00-0.50 MG/DL Total Protein 6.6 6.4-8.2 GM/DL Albumin 3.8 3.2-4.5 GM/DL Serum Alcohol < 10 <10 MG/DL Urine Color YELLOW Urine Clarity CLEAR Urine pH 7.0 5-9 Urine Specific [place] 1.015 L 1.016-1.022 Urine Protein NEGATIVE NEGATIVE Urine Glucose (UA) NEGATIVE NEGATIVE Urine Ketones NEGATIVE NEGATIVE Urine Nitrite NEGATIVE NEGATIVE Urine Bilirubin NEGATIVE NEGATIVE Urine Urobilinogen 0.2 < = 1.0 MG/DL Urine Leukocyte Esterase NEGATIVE NEGATIVE Urine RBC (Auto) NEGATIVE NEGATIVE Urine RBC NONE /HPF Urine WBC RARE /HPF Urine Crystals NONE /LPF Urine Bacteria NEGATIVE /HPF Urine Casts NONE /LPF Urine Mucus SMALL H /LPF Urine Culture Indicated NO My Orders Orders - NIDIA STEVE MD Alcohol (02/05/20 10:17) Cbc With Automated Diff (02/05/20 10:17) Comprehensive Metabolic Panel (02/05/20 10:17) Hs C Reactive Protein (02/05/20 10:17) Magnesium (02/05/20 10:17) Ua Culture If Indicated (02/05/20 10:17) Ed Iv/Invasive Line Start (02/05/20 10:17) Lactated Ringers (Lr 1000 Ml Iv Solution (02/05/20 10:17) Ondansetron Injection (Zofran Injectio (02/05/20 10:30) Famotidine Injection (Pepcid Injection) (02/05/20 10:30) Ketorolac Injection (Toradol Injection) (02/05/20 10:30) Potassium Cl 10meq/50ml Ivpb (Kcl 10 Meq (02/05/20 11:00) Ed Iv/Invasive Line Start (02/05/20 10:51) Ns Iv 1000 Ml (Sodium Chloride 0.9%) (02/05/20 10:51) Medications Given in ED Current Medications Medications Dose Ordered Sig/Glory Route Start Time Stop Time Status Last Admin Dose Admin Famotidine 20 mg ONCE ONCE IVP 02/05/20 10:30 02/05/20 10:31 DC 02/05/20 10:28 20 MG Ketorolac Tromethamine 15 mg ONCE ONCE IVP 02/05/20 10:30 02/05/20 10:31 DC 02/05/20 10:29 15 MG Lactated Ringer's 1,000 ml @ 0 mls/hr Q0M ONCE IV 02/05/20 10:17 02/05/20 10:21 DC 02/05/20 10:30 1,000 MLS/HR Ondansetron HCl 8 mg ONCE ONCE IVP 02/05/20 10:30 02/05/20 10:31 DC 02/05/20 10:28 8 MG Potassium Chloride 50 ml @ 50 mls/hr ONCE ONCE IV 02/05/20 11:00 02/05/20 11:59 DC 02/05/20 11:16 50 MLS/HR Sodium Chloride 1,000 ml @ 0 mls/hr Q0M ONCE IV 02/05/20 10:51 02/05/20 10:53 DC 02/05/20 11:27 1,000 MLS/HR Vital Signs/I&O 02/05/20 02/05/20 02/05/20 10:11 10:11 12:30 Temp 37.0 Pulse 96 88 Resp 18 18 B/P (MAP) 114/85 (95) 124/78 Pulse Ox 95 98 O2 Delivery Room Air Room Air Capillary Refill : Less Than 3 Seconds Blood Pressure Mean: 95 Progress Note #1: Time: 11:00 Progress Note Patient is being treated with Toradol, Zofran, Pepcid, and IV LR. Labs have returned and have been reviewed. He is hypokalemic with potassium of 3.1. We will infuse a liter of normal saline along with 10 mEq of potassium replacement. UA is pending. Labs are otherwise not significantly changed from time of discharge. Progress Note #2: Time: 12:57 Progress Note Social work was consulted and visited with the patient. UA was unremarkable. She was ultimately discharged in stable condition. Departure Impression Primary Impression: Acute headache Qualified Codes: R51 - Headache Additional Impressions: Nausea and vomiting Qualified Codes: R11.2 - Nausea with vomiting, unspecified Hypokalemia Disposition: 01 HOME, SELF-CARE Condition: Improved Departure-Patient Inst. Referrals: SELF,EJ SWAN (PCP/Family) Primary Care Physician Patient Instructions: Headache, Adult, Nausea and Vomiting, Adult Add. Discharge Instructions: Drink plenty of clear liquids. Gradually advance your diet with small quantities of bland food as tolerated. Follow up with a primary care provider as soon as possible. Taper down on your alcohol consumption but avoid abruptly stopping as this may cause dangerous withdraw. Use Zofran as prescribed for nausea and vomiting and Pepcid (famotidine) as antacid therapy. Return to care if you have worsening symptoms despite treatment. All discharge instructions reviewed with patient and/or family. Voiced understanding. Scripts Famotidine (Pepcid) 20 Mg Tablet 20 MG PO BID, #30 TAB Prov: NIDIA STEVE MD 02/05/20 Ondansetron (Ondansetron Odt) 4 Mg Tab.rapdis 4 MG SL Q4H PRN for NAUSEA/VOMITING, #10 TAB Prov: NIDIA STEVE MD 02/05/20 NIDIA STEVE MD Feb 05, 2020 11:01
[2020-02-05] MEDS ORDERED: FAMO-119 PO (11:28)
[2020-02-05] MEDS ORDERED: ONDA4TAB11 SL (11:28)
[2020-02-05 11:42] LABS: BILIRUBIN,URINE NEGATIVE (NEGATIVE); CLARITY,URINE CLEAR; COLOR,URINE YELLOW; GLUCOSE, URINE (UA) NEGATIVE (NEGATIVE); KETONES,URINE NEGATIVE (NEGATIVE); LEUKOCYTE ESTERASE ,URINE NEGATIVE (NEGATIVE); NITRITE,URINE NEGATIVE (NEGATIVE); PROTEIN,URINE NEGATIVE (NEGATIVE)
--- NOTE | 2020-02-05 11:42 | NUR ---
[employer]IAL [employer]ERS HERE TO TALK WITH PATIENT
--- NOTE | 2020-02-05 11:53 | NUR ---
[employer] REPORTS HE HAS MONEY IN HIS ACCOUNT. FOR A HOTEL AND CAB. AND HE WILL BE GETTING PAIN TOMORROW,
[2020-02-05 11:59] LABS: BACTERIA,URINE NEGATIVE /HPF; WBC,URINE RARE /HPF
--- NOTE | 2020-02-05 12:05 | NUR ---
CM/SS: Visited with pt along with progress worker Cecilia Zamora as to his plan for discharge as pt was just dismissed from the hospital on yesterday. Pt has stated he does not know what he will he do when he is discharged. Plan: Pt to be discharged when medically appropriate. Summary: Pt does have resources in his bank to pay for a ride, and lodging. Pt continues to report he does not know what he is going to do. Both workers spent time with pt on yesterday in getting him a way to the bank so that he could access funds. Both workers reminded pt of his bank information and options available to him after he is discharged. Pt is also told that if he does not meet the medical criteria to remain in the hospital, he will need to leave when he is discharge. Pt continued to say he did not remember the events of yesterday. Pt is reminded. The information is also provided to him for homeless individuals with agencies and phone numbers should he need to utilize one of them. Also, because pt has reported he can not remember what to do when discharged they are also written on the same list as well. This information is passed along to JOMAR Marquez.
[2020-02-05 12:30] VITALS: BP 124/78
== END 2020-02-05 12:33 | disposition home or self-care (01) ==
LOC: EDUNIT# 10:11 → ER 10:13
DX: R51 Headache (principal); R11.2 Nausea with vomiting, unspecified; E87.6 Hypokalemia; J44.9 Chronic obstructive pulmonary disease, unspecified; F17.210 Nicotine dependence, cigarettes, uncomplicated
CPT/HCPCS: 36415; 80053; 80320; 81000; 83735; 85025; 86141

== ENCOUNTER 2020-02-12 17:22 | Inpatient (IN) | payer MEDICARE ==
[~2020-02-12] VITALS: Ht 175 cm; Wt 60.8 kg
[~2020-02-12 17:22] MED LIST: FAMO-119 PO; ONDA4TAB11 SL
--- NOTE | 2020-02-12 17:29 | ED GI ---
General Stated Complaint: MALAISE Source of Information: Patient Exam Limitations: No Limitations (TARA RUBY DO) History of Present Illness Date Seen by Provider: Feb 12, 2020 Time Seen by Provider: 17:18 Initial Comments The patient is a 59-year-old male presents for evaluation of nausea, vomiting, and generalized abdominal discomfort over the last 2-3 days. The patient is an alcoholic and is a poor historian and admits to drinking today. He was recently admitted to the hospital but denies this. He told EMS that he had been feeling warm and cold but has not taken his temperature. EMS didn't take his temperature and he is afebrile. Records indicate the pt was admitted 02/02 and discharged on 02/03 for viral gastroenteritis. During that visit he was tested for COVID 19 which was negative. Timing/Duration: 2-3 Days Severity/Quality: Moderate Location: Generalized Abdomen Radiation: No Radiation Activities at Onset: None Associated Symptoms: Nausea/Vomiting (TARA RUBY DO) Allergies and Home Medications Allergies Coded Allergies: No Known Drug Allergies (Unverified , 01/21/20) Home Medications Famotidine 20 Mg Tablet, 20 MG PO BID Prescribed by: NIDIA CABRERA on 02/05/20 1128 Ondansetron 4 Mg Tab.rapdis, 4 MG SL Q4H PRN for NAUSEA/VOMITING Prescribed by: NIDIA CABRERA on 02/05/20 1128 Patient Home Medication List Home Medication List Reviewed: Yes (TARA RUBY DO) Review of Systems Review of Systems Constitutional: no symptoms reported EENTM: No Symptoms Reported Respiratory: No Symptoms Reported Cardiovascular: No Symptoms Reported Gastrointestinal: Abdominal Pain, Nausea, Vomiting Genitourinary: No Symptoms Reported Musculoskeletal: no symptoms reported Skin: no symptoms reported Psychiatric/Neurological: No Symptoms Reported Endocrine: No Symptoms Reported Hematologic/Lymphatic: No Symptoms Reported (TARA RUBY DO) All Other Systems Reviewed Negative Unless Noted: Yes (TARA RUBY DO) Past Hbctkjk-Bcqrbo-Lguwxu Hx Past Med/Social Hx: Reviewed Nursing Past Med/Soc Hx (TARA RUBY DO) Patient Social History Alcohol Beverage of Choice: Whiskey Type Used: Cigarettes 2nd Hand Smoke Exposure: No Recent Hopitalizations: Yes (Discharged 02/04/20 (rule out COVID-19)) (TARA RUBY DO) Past Medical History Surgeries: No Respiratory: Yes COPD Cardiac: Yes Neurological: No Genitourinary: No Gastrointestinal: No Musculoskeletal: No Endocrine: No HEENT: No Cancer: No Psychosocial: Yes (Alcoholic, no permanent residence) Integumentary: No (TARA RUBY DO) Physical Exam Vital Signs Vital Signs - First Documented 02/12/20 17:46 Temp 36.8 Pulse 99 Resp 16 B/P (MAP) 154/95 (114) Pulse Ox 100 O2 Delivery Room Air (DONNIE CRAWFORD DO) Vital Signs Capillary Refill : (TARA RUBY DO) Height/Weight/BMI Height: '" Weight: lbs. oz. kg; 21.00 BMI Method: General Appearance: WD/WN, no apparent distress HEENT: PERRL/EOMI, pharynx normal Respiratory: chest non-tender, lungs clear, normal breath sounds, no respiratory distress Cardiovascular: regular rate, rhythm, no edema, no JVD Gastrointestinal: normal bowel sounds, tenderness (mild epigastric tenderness) Extremities: normal range of motion, no pedal edema Neurologic/Psychiatric: no motor/sensory deficits, alert, normal mood/affect Skin: normal color, warm/dry (TARA RUBY DO) Progress/Results/Core Measures Results/Orders Lab Results Laboratory Tests Test 02/12/20 18:12 Range/Units White Blood Count 15.0 H 4.3-11.0 10^3/uL Red Blood Count 5.08 4.35-5.85 10^6/uL Hemoglobin 16.2 13.3-17.7 G/DL Hematocrit 49 40-54 % Mean Corpuscular Volume 97 80-99 FL Mean Corpuscular Hemoglobin 32 25-34 PG Mean Corpuscular Hemoglobin Concent 33 32-36 G/DL Red Cell Distribution Width 13.6 10.0-14.5 % Platelet Count 342 130-400 10^3/uL Mean Platelet Volume 9.3 7.4-10.4 FL Neutrophils (%) (Auto) 84 H 42-75 % Lymphocytes (%) (Auto) 8 L 12-44 % Monocytes (%) (Auto) 7 0-12 % Eosinophils (%) (Auto) 0 0-10 % Basophils (%) (Auto) 0 0-10 % Neutrophils # (Auto) 12.6 H 1.8-7.8 X 10^3 Lymphocytes # (Auto) 1.3 1.0-4.0 X 10^3 Monocytes # (Auto) 1.0 0.0-1.0 X 10^3 Eosinophils # (Auto) 0.0 0.0-0.3 10^3/uL Basophils # (Auto) 0.1 0.0-0.1 10^3/uL Neutrophils % (Manual) 84 % Lymphocytes % (Manual) 8 % Monocytes % (Manual) 5 % Eosinophils % (Manual) 0 % Basophils % (Manual) 0 % Band Neutrophils 3 % Sodium Level 143 135-145 MMOL/L Potassium Level 3.1 L 3.6-5.0 MMOL/L Chloride Level 97 L 98-107 MMOL/L Carbon Dioxide Level 26 21-32 MMOL/L Anion Gap 20 H 5-14 MMOL/L Blood Urea Nitrogen 8 7-18 MG/DL Creatinine 0.81 0.60-1.30 MG/DL Estimat Glomerular Filtration Rate > 60 BUN/Creatinine Ratio 10 Glucose Level 102 70-105 MG/DL Calcium Level 8.7 8.5-10.1 MG/DL Corrected Calcium 8.4 L 8.5-10.1 MG/DL Total Bilirubin 0.8 0.1-1.0 MG/DL Aspartate Amino Transf (AST/SGOT) 39 H 5-34 U/L Alanine Aminotransferase (ALT/SGPT) 29 0-55 U/L Alkaline Phosphatase 85 40-136 U/L Total Protein 8.0 6.4-8.2 GM/DL Albumin 4.4 3.2-4.5 GM/DL Amylase Level 178 H 25-125 U/L Lipase 37 8-78 U/L Serum Alcohol 123 H <10 MG/DL (DONNIE CRAWFORD DO) My Orders Orders - DONNIE CRAWFORD DO Potassium Cl 10meq/50ml Ivpb (Kcl 10 Meq (02/12/20 19:00) Potassium Cl 10meq/50ml Ivpb (Kcl 10 Meq (02/12/20 19:00) Lactated Ringers (Lr 1000 Ml Iv Solution (02/12/20 19:00) Magnesium 1 Gm/100 Ml Ivpb (Magnesium Jarrett (02/12/20 19:00) Potassium Chloride (Tablet) (K Dur Table (02/12/20 19:00) Lorazepam Injection (Ativan Injection) (02/12/20 19:00) Ondansetron Injection (Zofran Injectio (02/12/20 19:00) Lactated Ringers (Lr 1000 Ml Iv Solution (02/12/20 19:45) Pantoprazole Injection (Protonix Injecti (02/12/20 19:45) Antacid Suspension (Mylanta Suspension (02/12/20 19:45) Diphen/Antacid/Lido 1:1:1 (Lidocaine/Ant (02/12/20 19:45) Lorazepam Injection (Ativan Injection) (02/12/20 19:45) Lidocaine 2% Viscous 15 Ml (Xylocaine Vi (02/12/20 19:52) Antacid Suspension (Mylanta Suspension (02/12/20 20:15) Lidocaine 2% Viscous 15 Ml (Xylocaine Vi (02/12/20 20:15) Lorazepam Injection (Ativan Injection) (02/12/20 21:00) (DONNIE CRAWFORD DO) Medications Given in ED Current Medications Medications Dose Ordered Sig/Glory Route Start Time Stop Time Status Last Admin Dose Admin Al Hydrox/Mg Hydrox/Simethicone 30 ml ONCE ONCE PO 02/12/20 19:45 02/12/20 19:46 DC 02/12/20 20:11 30 ML Iohexol 100 ml ONCE ONCE IV 02/12/20 17:45 02/12/20 17:46 DC 02/12/20 18:38 100 ML Lidocaine HCl 15 ml ONCE ONCE PO 02/12/20 20:15 02/12/20 20:16 DC 02/12/20 20:11 15 ML Lorazepam 1 mg ONCE ONCE IVP 02/12/20 17:45 02/12/20 17:46 DC 02/12/20 17:55 1 MG Lorazepam 2 mg ONCE ONCE IVP 02/12/20 19:00 02/12/20 19:01 DC 02/12/20 19:04 2 MG Lorazepam 2 mg ONCE ONCE IVP 02/12/20 19:45 02/12/20 19:46 DC 02/12/20 20:06 2 MG Lorazepam 2 mg ONCE ONCE IVP 02/12/20 21:00 02/12/20 21:01 DC 02/12/20 21:05 2 MG Ondansetron HCl 4 mg ONCE ONCE IVP 02/12/20 17:30 02/12/20 17:31 DC 02/12/20 17:55 4 MG Ondansetron HCl 4 mg ONCE ONCE IVP 02/12/20 19:00 02/12/20 19:01 DC 02/12/20 19:05 4 MG Pantoprazole 40 mg ONCE ONCE IV 02/12/20 19:45 02/12/20 19:46 DC 02/12/20 20:06 40 MG Potassium Chloride 40 meq ONCE ONCE PO 02/12/20 19:00 02/12/20 19:01 DC 02/12/20 20:06 40 MEQ Potassium Chloride 50 ml @ 50 mls/hr ONCE ONCE IV 02/12/20 19:00 02/12/20 19:59 DC 02/12/20 19:04 50 MLS/HR Potassium Chloride 50 ml @ 50 mls/hr ONCE ONCE IV 02/12/20 19:00 02/12/20 19:59 DC 02/12/20 20:05 50 MLS/HR Sodium Chloride 10 ml NEEDED PRN IV 02/12/20 17:45 02/12/20 18:38 10 ML Sodium Chloride 100 ml ONCE ONCE IV 02/12/20 17:45 02/12/20 17:46 DC 02/12/20 18:38 100 ML (DONNIE CRAWFORD DO) Vital Signs/I&O 02/12/20 17:46 Temp 36.8 Pulse 99 Resp 16 B/P (MAP) 154/95 (114) Pulse Ox 100 O2 Delivery Room Air (DONNIE CRAWFORD DO) Progress Progress Note : Progress Note @1800 - Pt care transferred from Dr. Ruby to Dr. Crawford at this time. Awaiting lab and imaging results. (TARA RUBY DO) Progress Note : Time: 20:13 Progress Note I discussed patient's results with him including his low potassium and likely low magnesium as well as a leukocytosis. Patient says that he drinks 2 pints of whiskey daily and he does not think he has had withdrawal symptoms for the past by told him I believe he is having moderate to severe withdrawal symptoms at this time as his heart rate is at least in the 130 to 150 range and he is going into episodes of V. tach with wide complex QRS at 180 bpm. I told him these or life-threatening arrhythmias and he should be admitted to the hospital. Patient refused stating that he was just in the hospital and he does not want to go back to [facility] again. He said that he has a great deal of pain when he swallows as he has been vomiting and feels acid sensation in his stomach and esophagus. I told him I am not surprised as he likely has alcoholic esophagitis and gastritis in the vomiting has made this worse. Currently I'm giving him IV fluids liberal benzodiazepines and replacing his electrolytes and his vital signs are improved to a heart rate of 130 and a blood pressure 160/100. Patient is still completing his fluids and benzos here. I'm going to give him more time to consider his options as I believe he will do quite poorly as an outpatient. I told him if he does go home and he continues to have vomiting that he will not be able to hold down alcohol and he will continue to have worsening withdrawal symptoms and can possibly from alcohol withdrawal. He verbalized understanding and accepted responsibility for his own health. 2100 - patient was checked on again is used to getting IV fluids and he was sleeping. I woke him up and he was quite confused as he was disoriented to place and time. I could not send this patient home. On review of the rhythm strips with Dr. Castillo he believes this is atrial flutter. He recommended amiodarone bolus and drip along with metoprolol bolus doses and giving him weight-based Lovenox. Dr. Salamanca will accept the patient. She felt the patient may need to be intubated which may be the case at this time he is protecting his airways and will speak and swallow. I spoke to Dr. Darnell the dividend deposit entry clerk and critical care doctor at [facility] and he was okay deferring to my judgment at this time if he needs and abated and I feel that he does not. Dr. Darnell did say that anesthesia is available to intubate patient overnight if he becomes more obtunded and does not protect his airway. He did ask me to order when necessary Precedex for when he arrives to [facility]. Patient is quite ill with multiple metabolic derangements and is going through moderate to severe withdrawal symptoms with arrhythmias. He will be transferred to [facility] in critical condition. (DONNIE CRAWFORD DO) Critical Care Note Critical Care Total Time (minutes) 56 (DONNIE CRAWFORD DO) Departure Impression Primary Impression: Alcohol withdrawal Qualified Codes: F10.231 - Alcohol dependence with withdrawal delirium Additional Impressions: Hypokalemia Leukocytosis Atrial flutter with rapid ventricular response Disposition: ADMITTED INPATIENT Condition: Critical Transfer Transfer Reason: Exceeds level of care Time Spoke to Accepting Phy: 21:00 Transfer Facility: [facility] Method of Transfer: EMS (DONNIE CRAWFORD DO) Departure-Patient Inst. Referrals: SELF,EJ SWAN (PCP/Family) Primary Care Physician TARA RUBY DO Feb 12, 2020 17:29 DONNIE CRAWFORD DO Feb 12, 2020 20:16
[2020-02-12] MEDS ORDERED: ONDANSETRON 4 MG/2 ML (SDV) Z0FRAN IVP ONE ×2 (17:30→19:00)
[2020-02-12] MEDS: NS IV 1000 ML 1,000 ML IV SCH (17:38)
[2020-02-12] MEDS ORDERED: NS 100 ML (IVPB) BAG IV ONE (17:45)
[2020-02-12] MEDS ORDERED: CATHETER FLUSH 10 ML SYR IV PRN (17:45)
[2020-02-12] MEDS ORDERED: LORazepam INJ 2 MG/ML (ATIVAN) VIAL IVP ONE ×4 (17:45→21:00)
[2020-02-12] MEDS ORDERED: HOLD METFORMIN - RECEIVED CONTRAST 20 ML VIAL IV SCH (17:45)
[2020-02-12] MEDS ORDERED: IOHEXOL 350 MG/ML 100 ML (OMNIPAQUE 350) VIAL IV ONE (17:45)
--- OUTSIDE RECORDS SUMMARY | 2020-02-12 17:49 | XMS REPORT | Continuity of Care Document ---
Author Organization Unknown Address Unknown Phone Unavailable Allergies Active Description Code Type Severity Reaction Onset Reported/Identified Relationship to Patient Clinical Status Yes No Known Drug Allergies [id number] Drug Allergy Unknown N/A 01/21/2020 Medications There [...] W AND EXPOSURE TO OTH BACT COMMU 02/05/2020 NIDIA STEVE MD Ot E87.6 HYPOKALEMIA 02/05/2020 NIDIA STEVE MD Ot F17.210 NICOTINE DEPENDENCE, CIGARETTES, UNCOMPL 02/05/2020 NIDIA STEVE MD Ot J44.9 CHRONIC OBSTRUCTIVE PULMONARY DISEASE, U 02/05/2020 NIDIA STEVE MD Ot R11.2 NAUSEA WITH VOMITING, UNSPECIFIED 02/05/2020 NIDIA STEVE MD Ot R51 HEADACHE 02/06/2020 NIDIA STEVE MD Ot E87.6 HYPOKALEMIA 02/06/2020 NIDIA STEVE MD Ot F17.210 NICOTINE DEPENDENCE, CIGARETTES, UNCOMPL 02/06/2020 NIDIA STEVE MD Ot J44.9 CHRONIC OBSTRUCTIVE PULMONARY DISEASE, U 02/06/2020 NIDIA STEVE MD Ot R11.2 NAUSEA WITH VOMITING, UNSPECIFIED 02/06/2020 NIDIA STEVE MD Ot R51 HEADACHE Procedures There is no data. Results Test [...] - 02/03/20 18:40 Lipase 17 U/L 8-78 Bacterial blood culture - 02/03/20 18:40 Bacterial blood culture NG [facility] Bacterial blood culture - 02/03/20 18:40 Bacterial blood culture NG [facility] Influenza virus A and B antigen detectio [...] protein measurement (mass/v olume) 5.79 mg/dL 0.00-0.50 RESPIRATORY VIRUS PANEL - 02/03/20 23:45 Serum ragweed IgE antibody assay Not Detected Not Detected Serum or plasma aripiprazole measurement (mass/volume) Footnote Not Detected PARAINFLU 3 PCR Footnote Not Detected METAPNEUMO PCR Detected Not Detected Adenovirus detection, CSF, PCR Footnote Not Detected INFLUENZA A PCR Not Detected Not Detect ed INFLUENZA B PCR Not Detected Not Detect ed Complete blood count (CBC) with automate d [...] g/dL 3.2-4.5 CALCIUM CORRECTED 8.1 mg/dL 8.5-10.1 Complete blood count (CBC) with automate d white blood cell (WBC) differential - 02/05/20 10:20 Blood leukocytes automated count (number/volume) 6.4 10*3/uL 4.3-11.0 Blood erythrocytes automated count (number/volume) 3.77 10*6/uL 4.35-5.85 Venous blood hemoglobin measurement (mass/volume) 12.3 g/dL 13.3-17.7 Blood hematocrit (volume fraction) 37 % 40-54 Automated erythrocyte mean corpuscular volume 98 [ foz_us] 80-99 Automated erythrocyte mean corpuscular h emoglobin (mass per erythrocyte) 33 pg 25-34 Automated erythrocyte mean corpuscular h emoglobin concentration measurement (mass/volume) 33 g/dL 32-36 Automated erythrocyte distribution width ratio 13. 7 % 10.0- 14.5 Automated blood platelet count (count/volume) 188 10*3/uL 130-400 Automated blood platelet mean volume measurement 9.5 [foz_us] 7.4-10.4 Automated blood neutrophils/100 leukocytes 66 % 42-75 Automated blood lymphocytes/100 leukocytes 20 % 12-44 Blood monocytes/100 leukocytes 13 % 0-12 Automated blood eosinophils/100 leukocytes 2 % 0-10 Automated blood basophils/100 leukocytes 0 % 0-10 Blood neutrophils automated count (number/volume) 4.2 10*3 1.8-7.8 Blood lymphocytes automated count (number/volume) 1.3 10*3 1.0-4.0 Blood monocytes automated count (number/volume) 0. 8 10*3 0.0-1.0 Automated eosinophil count 0.1 10*3/uL 0 .0-0.3 Automated blood basophil count (count/volume) 0.0 10*3/uL 0.0-0.1 Comprehensive metabolic panel - 02/05/20 10:20 Serum or plasma sodium measurement (moles/volume) 136 mmol/L 135-145 Serum or plasma potassium measurement (moles/volume) 3.1 mmol/L 3.6-5.0 Serum or plasma chloride measurement (moles/volume) 106 mmol/L 98-107 Carbon dioxide 21 mmol/L 21-32 Serum or plasma anion gap determination (moles/volume) 9 mmol/L 5-14 Serum or plasma urea nitrogen measurement (mass/volume ) 5 mg/dL 7-18 Serum or plasma creatinine measurement (mass/volume) 0.78 mg/dL 0.60-1.30 Serum or plasma urea nitrogen/creatinine mass ratio 6 NRG Serum or plasma creatinine measurement w ith calculation of estimated glomerular filtration rate > NRG Serum or plasma glucose measurement (mass/volume) 132 mg/dL 70-105 Serum or plasma calcium measurement (mass/volume) 8.6 mg/dL 8.5-10.1 Serum or plasma total bilirubin measurement (mass/volu me) 0.3 mg/dL 0.1-1.0 Serum or plasma alkaline phosphatase guevara surement (enzymatic activity/volume) 37 U/L 40-136 Serum or plasma aspartate aminotransfera se measurement (enzymatic activity/volume) 15 U/L 5-34 Serum or plasma alanine aminotransferase measurement (enzymatic activity/volume) 10 U/L 0-55 Serum or plasma protein measurement (mass/volume) 6.6 g/dL 6.4-8.2 Serum or plasma albumin measurement (mass/volume) 3.8 g/dL 3.2-4.5 CALCIUM CORRECTED 8.8 mg/dL 8.5-10.1 Magnesium - 02/05/20 10:20 Magnesium 1.6 mg/dL 1.6-2.4 Serum or plasma C reactive protein measu rement (mass/volume) - 02/05/20 10:20 Serum or plasma C reactive protein measurement (mass/v olume) 6.15 mg/dL 0.00-0.50 Serum or plasma ethanol measurement (mas s/volume) - 02/05/20 10:20 Serum or plasma ethanol measurement (mass/volume) < mg/dL <10 Complete urinalysis with reflex to cultu re - 02/05/20 11:30 Urine color determination YELLOW NRG Urine clarity determination CLEAR NR G Urine pH measurement by test strip 7.0 5-9 Specific gravity of urine by test strip 1.015 1.016-1.022 Urine protein assay by test strip, semi-quantitative NEGATIVE NEGATIVE Urine glucose detection by automated test strip NE GATIVE NEGATIVE Erythrocytes detection in urine sediment by light micr oscopy NEGATIVE NEGATIVE Urine ketones detection by automated test strip NE GATIVE NEGATIVE Urine nitrite detection by test strip [...] leukocyte count by microscopy (number/high power field) RARE NRG Bacteria detection in urine sediment by light microsco py NEGATIVE NRG Crystals detection in urine sediment by light microsco py NONE NRG Casts detection in urine sediment by light microscopy NONE NRG Mucus detection in urine sediment by light microscopy SMALL NRG Complete urinalysis with reflex to culture NO NRG Encounters ACCT No. Visit Date/Time Discharge Status Pt. Type Provider Facility Loc./Unit Complaint [id number] 01/21/2020 10:00:00 01/21/2020 23:59: 59 [id number]/27/2019 13:40:00 Document Registration [id number] 09/24/2019 10:30:00 Document Registration [id number] 09/11/2019 09:40:00 Document Registration [id number] 04/25/2019 09:30:00 Document Registration [id number] 02/05/2020 10:13:00 12:33:00 DIS Emergency EVI SWAN, NIDIA Mckeon [facility] ER HEADACHE [id number] 02/03/2020 20:30:00 18:10:00 DIS Inpatient ROMULO SWAN, MAGALI Finch [facility] 4TH BLOOD PRESSURE [id number] 01/21/2020 01:51:00 03:10:00 DIS Outpatient ADARSH SWAN, JANEY Lu [facility] ER FS VOMITING BLOOD [id number] 09/11/2019 12:20:00 23:59:59 CLS Outpatient SELF EJ SWAN [facility] RAD FS ACUTE NONINTRACTABLE HE ADACHE [id number] 09/04/2019 15:03:00 23:59:59 CLS Outpatient SELF EJ SWAN [facility] LAB FS R50.9
[2020-02-12 18:24] LABS: BASOPHILS % (AUTO) 0 % (0-10); EOSINOPHILS % (AUTO) 0 % (0-10); HEMATOCRIT 49 % (40-54); HEMOGLOBIN 16.2 G/DL (13.3-17.7); LYMPHOCYTES % (AUTO) 8 % (12-44); MEAN CORPUSCULAR HEMOGLOBIN 32 PG (25-34); MEAN CORPUSCULAR HGB CONC 33 G/DL (32-36); MEAN CORPUSCULAR VOLUME 97 FL (80-99); MEAN PLATELET VOLUME 9.3 FL (7.4-10.4); MONOCYTES % (AUTO) 7 % (0-12); NEUTROPHILS % (AUTO) 84 % (42-75); PLATELET COUNT 342 10^3/uL (130-400); RED CELL DISTRIBUTION WIDTH 13.6 % (10.0-14.5)
[2020-02-12 18:25] LABS: BASOPHILS # (AUTO) 0.1 10^3/uL (0.0-0.1); LYMPHOCYTES # (AUTO) 1.3 X 10^3 (1.0-4.0); NEUTROPHILS # (AUTO) 12.6 X 10^3 (1.8-7.8)
[2020-02-12 18:36] LABS: BAND NEUTROPHILS 3 %; BASOPHILS % (MANUAL) 0 %; EOSINOPHILS % (MANUAL) 0 %; LYMPHOCYTES % (MANUAL) 8 %; MONOCYTES % (MANUAL) 5 %; NEUTROPHILS % (MANUAL) 84 %
[2020-02-12 18:39] LABS: BUN/CREATININE RATIO 10; CALCIUM 8.7 MG/DL (8.5-10.1); CARBON DIOXIDE 26 MMOL/L (21-32); CHLORIDE 97 MMOL/L (98-107); CREATININE SERUM 0.81 MG/DL (0.60-1.30); GFR ESTIMATED > 60; GLUCOSE 102 MG/DL (70-105); POTASSIUM 3.1 MMOL/L (3.6-5.0); SODIUM 143 MMOL/L (135-145)
[2020-02-12 18:40] LABS: ALANINE AMINOTRANSFERASE 29 U/L (0-55); ALBUMIN 4.4 GM/DL (3.2-4.5); ALKALINE PHOSPHATASE 85 U/L (40-136); AMYLASE 178 U/L (25-125); BILIRUBIN,TOTAL 0.8 MG/DL (0.1-1.0); LIPASE 37 U/L (8-78)
--- NOTE | 2020-02-12 18:45 | Diagnostic Imaging Report ---
PROCEDURE: CT abdomen and pelvis with contrast. TECHNIQUE: Multiple contiguous axial images were obtained through the abdomen and pelvis after administration of intravenous contrast. Auto Exposure Controls were utilized during the CT exam to meet ALARA standards for radiation dose reduction. INDICATION: Nausea and vomiting. FINDINGS: Minimal atelectasis noted medially in the right lung base. Liver shows fatty change. No focal liver lesions are seen. Gallbladder is distended with no wall thickening. No stones. The bile ducts are not dilated. The pancreas is atrophic. Spleen is normal. The adrenal glands are normal. Kidneys appear normal. There is normal enhancement of the abdominal organs and vessels following IV contrast. Delayed images show normal appearing collecting system and ureter. Bladder is opacified and normal. There is moderate enlargement of the prostate. The aorta is very densely calcified without evidence of aneurysm or dissection. Good enhancement of the celiac, mesenteric and renal arteries demonstrated. There is probable hemodynamic stenosis at the takeoff of the right renal artery. There is a moderate size fixed hiatal hernia without incarceration. Stomach and small bowel are not distended. There is very little stool in the colon though there is gas throughout to the rectum without distention. The appendix is visualized and normal. No evidence of bowel wall thickening. No intra-abdominal adenopathy of pathologic size. No acute bony change. 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 IMPRESSION: 1. No acute intra-abdominal finding. 2. Hepatic steatosis. 3. Atherosclerotic change of the aorta with probable hemodynamic stenosis at the takeoff of the right renal artery. 4. Moderate size fixed hiatal hernia. Bowel otherwise appears normal. Dictated by: Dictated on workstation # [id number]
[2020-02-12] MEDS ORDERED: POTASSIUM CL 10MEQ/50ML IVPB 50 ML IV ONE ×2 (19:00)
[2020-02-12] MEDS ORDERED: LACTATED RINGERS 1,000 ML IV SCH ×2 (19:00→19:45)
[2020-02-12] MEDS ORDERED: KCL 20 MEQ TAB (K-DUR) PO ONE (19:00)
[2020-02-12] MEDS: MAGNESIUM 1 GM/100 ML IVPB 100 ML IV SCH ×2 (19:09→20:03)
[2020-02-12] MEDS ORDERED: PANTOPRAZOLE 40 MG (PROTONIX) VIAL IV ONE (19:45)
[2020-02-12] MEDS ORDERED: LIDOCAINE/ANTACID/DIPHENHYDRAMINE 1:1:1 PO PRN (19:45)
[2020-02-12] MEDS ORDERED: ANTACID SUSP 30 ML UDC (MYLANTA) PO ONE ×2 (19:45→20:15)
[2020-02-12] MEDS ORDERED: LIDOCAINE 2% VISCOUS 15 ML UDC ONE (19:52)
[2020-02-12] MEDS ORDERED: LIDOCAINE 2% VISCOUS 15 ML UDC PO ONE (20:15)
[2020-02-12] MEDS ORDERED: AMIODARONE FOR BOLUS 150 MG in D5W 100 ML IVPB 100 ML IV ONE (21:15)
[2020-02-12] MEDS ORDERED: meTOprolol 5 MG/5 ML (LOPRESSOR) VIAL IV ONE (21:15)
[2020-02-12] MEDS ORDERED: PROMETHAZINE INJ 25 MG/ML (PHENERGAN) AMP IVP ONE (21:15)
[2020-02-12] MEDS ORDERED: AMIODARONE INJECTION 450 MG in D5W IV SOLUTION (EXCEL) 250 ML IV SCH (21:15)
--- OUTSIDE RECORDS SUMMARY | 2020-02-12 21:37 | XMS REPORT | Continuity of Care Document ---
Author Organization Unknown Address Unknown Phone Unavailable Allergies Active Description Code Type Severity Reaction Onset Reported/Identified Relationship to Patient Clinical Status Yes No Known Drug Allergies [id number] Drug Allergy Unknown N/A 01/21/2020 Medications There [...] Ot F41 .9 ANXIETY DISORDER, UNSPECIFIED 02/04/2020 AMGALI SEBASTIAN MD Ot I95 .9 HYPOTENSION, UNSPECIFIED [...] mg/dL 0.1-1.0 Serum or plasma alkaline phosphatase guevraa surement (enzymatic activity/volume) 42 U/L 40-136 Serum [...] - 02/03/20 18:40 Bacterial blood culture NG [facility] Bacterial blood culture - 02/03/20 18:40 Bacterial blood culture NG [facility] Influenza virus A and B antigen [...] urinalysis with reflex to culture NO NRG Complete blood count (CBC) with automate d white blood cell (WBC) differential - 02/12/20 18:12 Blood leukocytes automated count (number/volume) 15.0 10*3/uL 4.3-11.0 Blood erythrocytes automated count (number/volume) 5.08 10*6/uL 4.35-5.85 Venous blood hemoglobin measurement (mass/volume) 16.2 g/dL 13.3-17.7 Blood hematocrit (volume fraction) 49 % 40-54 Automated erythrocyte mean corpuscular volume 97 [ foz_us] 80-99 Automated erythrocyte mean corpuscular h emoglobin (mass per erythrocyte) 32 pg 25-34 Automated erythrocyte mean corpuscular h emoglobin concentration measurement (mass/volume) 33 g/dL 32-36 Automated erythrocyte distribution width ratio 13. 6 % 10.0- 14.5 Automated blood platelet count (count/volume) 342 10*3/uL 130-400 Automated blood platelet mean volume measurement 9.3 [foz_us] 7.4-10.4 Automated blood neutrophils/100 leukocytes 84 % 42-75 Automated blood lymphocytes/100 leukocytes 8 % 12-44 Blood monocytes/100 leukocytes 7 % 0-12 Automated blood eosinophils/100 leukocytes 0 % 0-10 Automated blood basophils/100 leukocytes 0 % 0-10 Blood neutrophils automated count (number/volume) 12.6 10*3 1.8-7.8 Blood lymphocytes automated count (number/volume) 1.3 10*3 1.0-4.0 Blood monocytes automated count (number/volume) 1. 0 10*3 0.0-1.0 Automated eosinophil count 0.0 10*3/uL 0 .0-0.3 Automated blood basophil count (count/volume) 0.1 10*3/uL 0.0-0.1 Manual absolute plasma cell count - 07/25 18:12 Blood monocytes/100 leukocytes 5 % NRG Manual blood segmented neutrophils/100 leukocytes 84 % NRG Blood band neutrophils/100 leukocytes 3 % NRG Manual blood lymphocytes/100 leukocytes 8 % NRG Manual eosinophils/100 leukocytes in nose 0 % NRG Manual blood basophils/100 leukocytes 0 % NRG Comprehensive metabolic panel - 02/12/20 18:12 Serum or plasma sodium measurement (moles/volume) 143 mmol/L 135-145 Serum or plasma potassium measurement (moles/volume) 3.1 mmol/L 3.6-5.0 Serum or plasma chloride measurement (moles/volume) 97 mmol/L 98-107 Carbon dioxide 26 mmol/L 21-32 Serum or plasma anion gap determination (moles/volume) 20 mmol/L 5-14 Serum or plasma urea nitrogen measurement (mass/volume ) 8 mg/dL 7-18 Serum or plasma creatinine measurement (mass/volume) 0.81 mg/dL 0.60-1.30 Serum or plasma urea nitrogen/creatinine mass ratio 10 NRG Serum or plasma creatinine measurement w ith calculation of estimated glomerular filtration rate > NRG Serum or plasma glucose measurement (mass/volume) 102 mg/dL 70-105 Serum or plasma calcium measurement (mass/volume) 8.7 mg/dL 8.5-10.1 Serum or plasma total bilirubin measurement (mass/volu me) 0.8 mg/dL 0.1-1.0 Serum or plasma alkaline phosphatase guevara surement (enzymatic activity/volume) 85 U/L 40-136 Serum or plasma aspartate aminotransfera se measurement (enzymatic activity/volume) 39 U/L 5-34 Serum or plasma alanine aminotransferase measurement (enzymatic activity/volume) 29 U/L 0-55 Serum or plasma protein measurement (mass/volume) 8.0 g/dL 6.4-8.2 Serum or plasma albumin measurement (mass/volume) 4.4 g/dL 3.2-4.5 CALCIUM CORRECTED 8.4 mg/dL 8.5-10.1 Serum or plasma amylase measurement (enz ymatic activity/volume) - 02/12/20 18:12 Serum or plasma amylase measurement (enzymatic activit y/volume) 178 U/L 25-125 Lipase - 02/12/20 18:12 Lipase 37 U/L 8-78 Serum or plasma ethanol measurement (mas s/volume) - 02/12/20 18:12 Serum or plasma ethanol measurement (mass/volume) 123 mg/dL <10 Encounters ACCT No. Visit Date/Time Discharge Status Pt. Type Provider Facility Loc./Unit Complaint [id number] 01/21/2020 10:00:00 01/21/2020 23:59: 59 CLS Outpatient SELF, EJ Ziegler [facility] [id number] 11/27/2019 13:40:00 Document Registration [id number] 09/24/2019 10:30:00 Document Registration [id number] 09/11/2019 09:40:00 Document Registration [id number] 04/25/2019 09:30:00 Document Registration [id number] 02/05/2020 10:13:00 12:33:00 DIS Emergency EVI SWAN, NIDIA Mckeon [facility] ER HEADACHE [id number] 02/03/2020 20:30:00 18:10:00 DIS Inpatient ROMULO SWAN, MAGALI Finch [facility] 4TH BLOOD PRESSURE [id number] 01/21/2020 01:51:00 03:10:00 DIS Outpatient ADARSH SWAN, JANEY Lu [facility] ER FS VOMITING BLOOD [id number] 09/11/2019 12:20:00 23:59:59 CLS Outpatient SELF EJ SWAN [facility] RAD FS ACUTE NONINTRACTABLE HE ADACHE [id number] 09/04/2019 15:03:00 23:59:59 CLS Outpatient SELF EJ SWAN [facility] LAB FS R50.9 [id number] 02/12/2020 18:25:00 Document Registration
[2020-02-12] MEDS ORDERED: ENOXAPARIN 40 MG/0.4 ML (LOVENOX) SYR SQ SCH (21:45)
[2020-02-12] MEDS ORDERED: NS W/KCL 20 MEQ/L 1,000 ML IV ONE (23:08)
[2020-02-12 23:30] VITALS: BP 153/101
[2020-02-12] MEDS ORDERED: LORazepam INJ 2 MG/ML (ATIVAN) VIAL IV PRN (23:30)
[2020-02-13] VITALS (24 sets, daily range): BP systolic 102–142; BP diastolic 69–98
[2020-02-13 00:35] LABS: INR 1.1 (0.8-1.4); PROTHROMBIN TIME PATIENT 14.5 SEC (12.2-14.7)
[2020-02-13] MEDS: meTOprolol 5 MG/5 ML (LOPRESSOR) VIAL IV SCH ×3 (00:45→11:38)
[2020-02-13] MEDS: MAGNESIUM 1 GM/D5W 100 ML IVPB IV SCH ×2 (00:45→01:45)
[2020-02-13] MEDS: NS W/KCL 20 MEQ/L 1,000 ML IV SCH ×5 (00:45→20:23)
[2020-02-13 03:26] LABS: BASOPHILS % (AUTO) 0 % (0-10); EOSINOPHILS % (AUTO) 0 % (0-10); HEMATOCRIT 43 % (40-54); HEMOGLOBIN 14.2 G/DL (13.3-17.7); LYMPHOCYTES # (AUTO) 1.7 X 10^3 (1.0-4.0); LYMPHOCYTES % (AUTO) 10 % (12-44); MEAN CORPUSCULAR HEMOGLOBIN 32 PG (25-34); MEAN CORPUSCULAR HGB CONC 33 G/DL (32-36); MEAN CORPUSCULAR VOLUME 98 FL (80-99); MEAN PLATELET VOLUME 9.7 FL (7.4-10.4); MONOCYTES # (AUTO) 2.1 X 10^3 (0.0-1.0); MONOCYTES % (AUTO) 12 % (0-12); NEUTROPHILS # (AUTO) 13.5 X 10^3 (1.8-7.8); NEUTROPHILS % (AUTO) 78 % (42-75); PLATELET COUNT 244 10^3/uL (130-400); RED CELL DISTRIBUTION WIDTH 14.1 % (10.0-14.5); WHITE BLOOD COUNT 17.3 10^3/uL (4.3-11.0)
[2020-02-13 04:12] LABS: ALBUMIN 3.6 GM/DL (3.2-4.5); CHLORIDE 100 MMOL/L (98-107); SODIUM 136 MMOL/L (135-145)
[2020-02-13 04:14] LABS: GLUCOSE 116 MG/DL (70-105)
[2020-02-13 04:15] LABS: TOTAL PROTEIN 6.5 GM/DL (6.4-8.2)
[2020-02-13 04:16] LABS: BILIRUBIN,TOTAL 1.4 MG/DL (0.1-1.0); CARBON DIOXIDE 25 MMOL/L (21-32)
[2020-02-13 04:18] LABS: ALKALINE PHOSPHATASE 67 U/L (40-136); CREATININE SERUM 0.77 MG/DL (0.60-1.30); GFR ESTIMATED > 60; PHOSPHORUS 2.2 MG/DL (2.3-4.7)
[2020-02-13 04:19] LABS: BUN/CREATININE RATIO 6
[2020-02-13 04:21] LABS: ALANINE AMINOTRANSFERASE 24 U/L (0-55); MAGNESIUM 2.7 MG/DL (1.6-2.4)
--- NOTE | 2020-02-13 05:26 | Pulmonary Consultation ---
History of Present Illness History of Present Illness Date Seen by Provider: Feb 13, 2020 Time Seen by Provider: 05:20 Date of Admission Allergies and Home Medications Allergies Coded Allergies: No Known Drug Allergies (Unverified , 01/21/20) Home Medications Famotidine 20 Mg Tablet, 20 MG PO BID Prescribed by: NIDIA CABRERA on 02/05/20 1128 Ondansetron 4 Mg Tab.rapdis, 4 MG SL Q4H PRN for NAUSEA/VOMITING Prescribed by: NIDIA CABRERA on 02/05/20 1128 Past Moaauon-Kcusem-Hskudv Hx Past Med/Social Hx: Reviewed Nursing Past Med/Soc Hx Patient Social History Alcohol Use: Regular Use Alcohol Beverage of Choice: Whiskey Recreational Drug Use: Yes Smoking Status: Current Everyday Smoker Type Used: Cigarettes 2nd Hand Smoke Exposure: Yes Recent Foreign Travel: No Contact w/Someone Who Travel: No Recent Infectious Disease Expo: No Recent Hopitalizations: Yes (Discharged 02/04/20 (rule out COVID-19)) Physical Abuse: No Sexual Abuse: No Past Medical History Surgeries: No Respiratory: Yes COPD Cardiac: Yes Neurological: No Genitourinary: No Gastrointestinal: No Musculoskeletal: No Endocrine: No HEENT: No Cancer: No Psychosocial: Yes (Alcoholic, no permanent residence) Integumentary: No Review of Systems Time Seen by Provider: 05:28 Sepsis Event Evaluation Height, Weight, BMI Height: '" Weight: lbs. oz. kg; 19.00 BMI Method: Exam Exam Vital Signs Date Time Temp Pulse Resp B/P (MAP) Pulse Ox O2 Delivery O2 Flow Rate FiO2 02/13/20 04:00 Room Air 02/13/20 04:00 83 20 134/95 (108) 97 Room Air 02/13/20 04:00 37.4 02/13/20 03:00 80 23 125/82 (96) 93 Room Air 02/13/20 02:00 86 24 117/80 (92) 91 Room Air 02/13/20 01:15 94 28 139/97 (111) 95 Room Air 02/13/20 01:00 90 02/13/20 00:45 105 27 134/92 (106) 97 Room Air 02/13/20 00:44 112 133/94 02/13/20 00:15 112 22 93 Room Air 02/13/20 00:00 111 26 95 Room Air 02/12/20 23:45 105 25 96 Room Air 02/12/20 23:30 38.2 101 21 153/101 (118) 94 Room Air 02/12/20 23:23 112 02/12/20 23:15 95 Room Air 02/12/20 22:12 119 18 133/94 95 Room Air 02/12/20 21:52 130 155/116 02/12/20 17:46 36.8 99 16 154/95 (114) 100 Room Air I & O 02/13/20 07:00 Intake Total 3813 ml Output Total 1775 ml Balance 2038 ml Height & Weight Height: '" Weight: lbs. oz. kg; 19.00 BMI Method: Capillary Refill: Less Than 3 Seconds Gastrointestinal: normal bowel sounds, tenderness (mild epigastric tenderness) Results Lab Laboratory Tests 02/12/20 18:12 02/13/20 03:19 02/13/20 03:51 Assessment/Plan Assessment/Plan Alcohol withdrawal -DAVID protocol N/V no abdominal pain -IVF -Amylase is high however Lipase is normal Leukocytosis r/o infection -Start rocephin flagyl -IVF -Cardenas culture, LA -UDS -check flu and RVP KELSI FERRARO DO Feb 13, 2020 05:26
[2020-02-13] MEDS ORDERED: ENOXAPARIN 40 MG/0.4 ML (LOVENOX) SYR SC SCH (05:30)
[2020-02-13] MEDS ORDERED: cefTRIAXone 1,000 MG IV (ROCEPHIN) VIAL ONE (06:06)
[2020-02-13] MEDS ORDERED: metroNIDAZOLE 500MG/100ML IVPB 100 ML ONE (06:06)
[2020-02-13] MEDS ORDERED: WATER (STERILE) FOR INJECTION 10 ML ONE (06:06)
[2020-02-13] MEDS: cefTRIAXone FOR IV USE 1,000 MG in WATER (STERILE) FOR INJECTION 10 ML IV SCH (06:23)
[2020-02-13] MEDS: metroNIDAZOLE 500MG/100ML IVPB 100 ML IV SCH ×3 (06:23→22:12)
[2020-02-13 06:28] LABS: AMPHETAMINE SCREEN, URINE NEGATIVE (NEGATIVE); BARBITURATE SCREEN URINE NEGATIVE (NEGATIVE); BENZODIAZEPINES SCREEN URINE POSITIVE (NEGATIVE); CANNABINOID SCREEN, URINE NEGATIVE (NEGATIVE); COCAINE SCREEN URINE NEGATIVE (NEGATIVE); METHADONE STAT NEGATIVE (NEGATIVE); METHAMPHETAMINE SCREEN URINE S NEGATIVE (NEGATIVE); OPIATE SCREEN URINE NEGATIVE (NEGATIVE); OXYCODONE STAT NEGATIVE (NEGATIVE); PROPOXYPHENE STAT NEGATIVE (NEGATIVE); TRICYCLIC ANTIDEPRESSANTS SCRE NEGATIVE (NEGATIVE)
[2020-02-13] MEDS ORDERED: AMIODARONE INJECTION 450 MG in D5W IV SOLUTION (EXCEL) 250 ML IV SCH (07:00)
--- NOTE | 2020-02-13 08:07 | Diagnostic Imaging Report ---
EXAMINATION: Chest 1 view HISTORY: Alcohol withdrawal COMPARISON: 01/21/2020 FINDINGS: Old right rib fractures are seen. Mild atelectasis is seen in the right lung base. No edema or pneumonia. The lungs are mildly hyperinflated. No pleural effusion or pneumothorax. Heart size is normal. IMPRESSION: 1. Mild right base atelectasis. Dictated by: Dictated on workstation # [id number]
[2020-02-13 09:00] LABS: BILIRUBIN,URINE NEGATIVE (NEGATIVE); CLARITY,URINE SL CLOUDY; COLOR,URINE YELLOW; GLUCOSE, URINE (UA) NEGATIVE (NEGATIVE); KETONES,URINE TRACE (NEGATIVE); LEUKOCYTE ESTERASE ,URINE NEGATIVE (NEGATIVE); NITRITE,URINE NEGATIVE (NEGATIVE); PH,URINE 8.5 (5-9); PROTEIN,URINE NEGATIVE (NEGATIVE)
[2020-02-13] MEDS ORDERED: SODIUM PHOSPHATE INJ 30 MM in NS (IVPB) 250 ML IV ONE (09:00)
[2020-02-13] MEDS: THIAMINE INJECTION 100 MG, FOLIC ACID INJECTION 1 MG, MAGNESIUM SULFATE 2 GM, VITAMIN M... IV SCH ×15 (09:07→14:53)
[2020-02-13 09:10] LABS: BACTERIA,URINE NEGATIVE /HPF; WBC,URINE RARE /HPF
[2020-02-13] MEDS: PANTOPRAZOLE 40 MG (PROTONIX) VIAL IV SCH (09:11)
[2020-02-13] MEDS ORDERED: BUSP10TA95 PO (09:26)
[2020-02-13] MEDS ORDERED: VENL150C98 PO (09:26)
[2020-02-13] MEDS ORDERED: CLON1TAB13 PO (09:26)
[2020-02-13] MEDS ORDERED: PANT40TA3 PO (09:26)
--- NOTE | 2020-02-13 09:26 | NUR ---
SPOKE WITH THE PT, WENT THRU THE EXT MED HISTORY AND CALLED [facility] TO COMPLETE THE MED REC PT WAS UNSURE HOW HE WAS TAKING BUSPAR BUT DOES KNOW HE TAKES MULTIPLE TABLETS A DAY. I ENTERED THE DIRECTIONS FROM WHAT [place] HAS LISTED. I VERIFIED THAT WITH THE PT AND HE AGGRESS THAT THIS IS CORRECT NO OTC MEDS
--- NOTE | 2020-02-13 12:12 | History & Physical-Hospitalist ---
History of Present Illness HPI/Chief Complaint CC: Alcohol withdrawal with episodes of V tach HPI: This is an unfortunate 59[address] Beltran who was [facility] who is homeless and just released from [facility] less than 1 week ago, although he does not recall this occurring, then visited the ER again earlier this week for continued social issues along with continued excessive alcohol consumption who presented to the [facility] ER last night in [place] withdrawal and episodes of v tach and unable to make sound decisions. Cardiology was consulted. Patient is currently sleeping and did not require intubation. Source: RN/MD, old records Exam Limitations: clinical condition Date Seen 02/13/20 Time Seen by a Provider: 10:45 Attending Physician Jessica Salamanca Maxwell MD Referring Physician Date of Admission Feb 12, 2020 at 21:00 Home Medications & Allergies Home Medications Reviewed patient Home Medication Reconciliation performed by pharmacy medication reconciliations regulatory and compliance technician and/or nursing. Patients Allergies have been reviewed. Allergies Allergies Coded Allergies No Known Drug Allergies (Unverified01/21/20) Past Gfuzaul-Fsdzxg-Dvcahu Hx Past Med/Social Hx: Reviewed Nursing Past Med/Soc Hx, Reviewed and Corrections made Patient Social History Marrital Status: single Employed/Student: unemployed Alcohol Use: Regular Use Alcohol Beverage of Choice: Whiskey Recreational Drug Use: Yes Smoking Status: Current Everyday Smoker Type Used: Cigarettes 2nd Hand Smoke Exposure: Yes Recent Foreign Travel: No Contact w/other who traveled: No Recent Hopitalizations: Yes (Discharged 02/04/20 (rule out COVID-19)) Recent Infectious Disease Expo: No Review of Systems Constitutional: see HPI Physical Exam Physical Exam Vital Signs Vital Signs - First Documented 02/12/20 17:46 Temp 36.8 Pulse 99 Resp 16 B/P (MAP) 154/95 (114) Pulse Ox 100 O2 Delivery Room Air Capillary Refill : Less Than 3 Seconds Height, Weight, BMI Height: '" Weight: lbs. oz. kg; 19.00 BMI Method: General Appearance: No Apparent Distress, Chronically ill, Thin Eyes: Right Eye Normal Inspection, Right Eye PERRL HEENT: PERRL/EOMI, Normal ENT Inspection, Pharynx Normal, Moist Mucous Membranes Neck: Full Range of Motion, Normal Inspection, Non Tender Respiratory: Chest Non Tender, Lungs Clear, Normal Breath Sounds, No Accessory Muscle Use, No Respiratory Distress Cardiovascular: Regular Rate, Rhythm, No Edema, No Gallop, No JVD, No Murmur, Normal Peripheral Pulses Gastrointestinal: Normal Bowel Sounds, No Organomegaly, No Pulsatile Mass, Non Tender, Soft Extremity: Normal Capillary Refill, Normal Inspection, No Pedal Edema Skin: Normal Color, Warm/Dry Lymphatic: No Adenopathy Results Results/Procedures Labs Laboratory Tests 02/12/20 18:12 02/13/20 03:19 02/13/20 03:51 Patient resulted labs reviewed. 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
--- NOTE | 2020-02-13 14:18 | Diagnostic Imaging Report ---
INDICATION: PICC line placement. Frontal chest obtained at 2:00 p.m., compared to same day at 3:32 a.m. Heart is normal in size. There is central vascular prominence. There is worsening infiltrate in the right medial base. There is a new right-sided PICC line with tip overlying the superior portion of the right atrium, recommended pulling it back about 3 cm for distal SVC placement. IMPRESSION: Worsening infiltrate right lung base. New PICC line placed in the right arm with tip overlying the right atrium, recommend pulling it back about 3 cm for distal SVC placement. Dictated by: Dictated on workstation # [id number]
[2020-02-13] MEDS ORDERED: meTOprolol SUCCINATE 100 MG (TOPROL XL) TAB PO ONE (14:45)
--- NOTE | 2020-02-13 14:58 | Consultation-Cardiology ---
HPI-Cardiology Cardiology Consultation: Date of Consultation 02/13/20 Time Seen by a Provider: 14:00 Date of Admission Attending Physician Jessica Salamanca DO Admitting Physician Mitchell Beltran MD Consulting Physician AKIRA LOCKETT MD, MA, FACP, FACC, FSCAI, CCDS HPI: Chief Complaint: Reason for consultation: Tachycardia HPI 59 yo man who was admitted to Dr Salamanca through the [facility] ER after he had presented with symptoms of alcohol withdrawal, including nausea and vomiting and confusion. Was found to have runs of tachycardia that the ER physician felt may be VT on the monitor, but later examination of printed rhythm strips was indicative of narrow-complex tachy, likel A Fl with 2:1 AV conduction. He denies cp or palp or syncope Has chronic exertional shortness of breath Notes gen weakness and malaise Denies fever or chills Review of Systems-Cardiology Review of Systems Constitutional: As described under HPI Eyes: other (no vision in L eye (after remote trauma)) Ears/Nose/Throat: No ear discharge, No nasal drainage, No recent hearing loss Respiratory: As described under HPI Cardiovascular: As described under HPI Gastrointestinal: As described under HPI Genitourinary: No dysuria, No hematuria, No urine frequency changes Musculoskeletal: back pain (chronic) Skin: No rash, No ulcerations Psychiatric/Neurological: No seizure, No focal weakness, No syncope Hematologic: No bleeding abnormalities All Other Systems Reviewed Negative Unless Noted: Yes AKC-Vnzhtw-Jxcoyb Hx Patient Social History Alcohol Use: Regular Use Recreational Drug Use: Yes Smoking Status: Current Everyday Smoker Type Used: Cigarettes 2nd Hand Smoke Exposure: Yes Recent Foreign Travel: No Recent Infectious Disease Expo: No Hospitalization with Isolation: Denies Past Medical History PMH As described under Assessment. Family Medical History Family Medical History: Does not report fam h/o early CAD or SCD Allergies and Home Medications Allergies Coded Allergies: No Known Drug Allergies (Unverified , 01/21/20) Home Medications Buspirone HCl 10 Mg Tablet, 20 MG PO BID, (Reported) TAKES 2 (10MG) TABS TWICE DAILY Clonazepam 1 Mg Tablet, 0.5-1 MG PO BID PRN for ANXIETY, (Reported) Pantoprazole Sodium 40 Mg Tablet.dr, 40 MG PO DAILY, (Reported) Venlafaxine HCl 150 Mg Cap.er.24h, 150 MG PO DAILY, (Reported) Patient Home Medication List Home Medication List Reviewed: Yes Physical Exam-Cardiology Physical Exam Vital Signs/I&O 02/13/20 02/13/20 02/13/20 02/13/20 03:00 04:00 04:00 04:00 Temp 37.4 Pulse 80 83 Resp 23 20 B/P (MAP) 125/82 (96) 134/95 (108) Pulse Ox 93 97 O2 Delivery Room Air Room Air Room Air 02/13/20 02/13/20 02/13/20 02/13/20 05:00 06:00 07:00 07:00 Pulse 82 84 80 79 Resp 22 26 B/P (MAP) 114/82 (93) 138/98 (111) 102/73 (83) Pulse Ox 93 97 95 O2 Delivery Room Air Room Air Room Air 02/13/20 02/13/20 02/13/20 02/13/20 08:00 08:00 08:14 09:00 Temp 36.7 Pulse 96 101 Resp 12 25 B/P (MAP) 123/80 (94) 121/84 (96) Pulse Ox 96 92 O2 Delivery Room Air Room Air Room Air 02/13/20 02/13/20 02/13/20 02/13/20 10:00 11:00 11:24 12:00 Temp 38.6 Pulse 105 104 98 Resp 35 36 22 B/P (MAP) 133/83 (100) 128/82 (97) 134/83 (100) Pulse Ox 91 95 95 O2 Delivery Room Air Room Air Room Air 02/13/20 02/13/20 02/13/20 12:00 12:26 13:00 Pulse 105 101 Resp 20 B/P (MAP) 139/91 (107) Pulse Ox 96 96 O2 Delivery Room Air Room Air 02/13/20 00:00 Intake Total 3813 ml Balance 3813 ml Capillary Refill : Less Than 3 Seconds Constitutional: AAO x 3, well-developed, well-nourished HEENT: other (EOMI and PERRL on R; shrunken eyeball on L) Neck: No non-tender; carotid pulses are 2 + bilaterally, with good upstrokes Respiratory: No accessory muscle use; other (fair to good bilat air entry, diminished at the bases) Cardiovascular: regular rate-rhythm, S1 and S2, systolic murmur (faint HARISH at card base) Gastrointestinal: No tender; soft; No guarding, No rebound; audible bowel sounds Extremities: No clubbing, No cyanosis, No significant edema Neurologic/Psychiatric: oriented x 3, other (moves all limbs equally) Skin: warm/dry; No cyanosis, No cool, No rash on exposed areas, No ulcerations on exposed areas Data Review Labs Laboratory Tests 02/12/20 18:12: White Blood Count 15.0H, Red Blood Count 5.08, Hemoglobin 16.2, Hematocrit 49, Mean Corpuscular Volume 97, Mean Corpuscular Hemoglobin 32, Mean Corpuscular Hemoglobin Concent 33, Red Cell Distribution Width 13.6, Platelet Count 342, An n Platelet Volume 9.3, Neutrophils (%) (Auto) 84H, Lymphocytes (%) (Auto) 8L, Monocytes (%) (Auto) 7, Eosinophils (%) (Auto) 0, Basophils (%) (Auto) 0, Neutrophils # (Auto) 12.6H, Lymphocytes # (Auto) 1.3, Monocytes # (Auto) 1.0, Eosinophils # (Auto) 0.0, Basophils # (Auto) 0.1, Neutrophils % (Manual) 84, Lymphocytes % (Manual) 8, Monocytes % (Manual) 5, Eosinophils % (Manual) 0, Basophils % (Manual) 0, Band Neutrophils 3, Sodium Level 143, Potassium Level 3.1L, Chloride Level 97L, Carbon Dioxide Level 26, Anion Gap 20H, Blood Urea Nitrogen 8, Creatinine 0.81, Estimat Glomerular Filtration Rate > 60, BUN/Creatinine Ratio 10, Glucose Level 102, Calcium Level 8.7, Corrected Calcium 8.4L, Total Bilirubin 0.8, Aspartate Amino Transf (AST/SGOT) 39H, Alanine Aminotransferase (ALT/SGPT) 29, Alkaline Phosphatase 85, Total Protein 8.0, Albumin 4.4, Amylase Level 178H, Lipase 37, Serum Alcohol 123H 02/13/20 03:19: White Blood Count 17.3H, Red Blood Count 4.40, Hemoglobin 14.2, Hematocrit 43, Mean Corpuscular Volume 98, Mean Corpuscular Hemoglobin 32, Mean Corpuscular Hemoglobin Concent 33, Red Cell Distribution Width 14.1, Platelet Count 244, Mean Platelet Volume 9.7, Neutrophils (%) (Auto) 78H, Lymphocytes (%) (Auto) 10L , Monocytes (%) (Auto) 12, Eosinophils (%) (Auto) 0, Basophils (%) (Auto) 0, Neutrophils # (Auto) 13.5H, Lymphocytes # (Auto) 1.7, Monocytes # (Auto) 2.1H, Eosinophils # (Auto) 0.0, Basophils # (Auto) 0.0 02/13/20 03:51: Sodium Level 136, Potassium Level 4.0, Chloride Level 100, Carbon Dioxide Level 25, Anion Gap 11, Blood Urea Nitrogen 5L, Creatinine 0.77, Estimat Glomerular Filtration Rate > 60, BUN/Creatinine Ratio 6, Glucose Level 116H, Calcium Level 8.0L, Corrected Calcium 8.3L, Total Bilirubin 1.4H, Aspartate Amino Transf (AST/SGOT) 29, Alanine Aminotransferase (ALT/SGPT) 24, Alkaline Phosphatase 67, Total Protein 6.5, Albumin 3.6, Phosphorus Level 2.2L, Magnesium Level 2.7H 02/13/20 05:47: Urine Opiates Screen NEGATIVE, Urine Oxycodone Screen NEGATIVE, Urine Methadone Screen NEGATIVE, Urine Propoxyphene Screen NEGATIVE, Urine Barbiturates Screen NEGATIVE, Ur Tricyclic Antidepressants Screen NEGATIVE, Urine Phencyclidine Screen NEGATIVE, Urine Amphetamines Screen NEGATIVE, Urine Methamphetamines Screen NEGATIVE, Urine Benzodiazepines Screen POSITIVEH, Urine Cocaine Screen NEGATIVE, Urine Cannabinoids Screen NEGATIVE 02/13/20 06:27: Lactic Acid Level 0.97, Ammonia 18, C-Reactive Protein High Sensitivity 4.99H, Procalcitonin 0.07 02/13/20 06:34: D-Dimer 1.12H 02/13/20 08:47: Urine Color YELLOW, Urine Clarity SL CLOUDY, Urine pH 8.5, Urine Specific Niss[place] 1.020, Urine Protein NEGATIVE, Urine Glucose (UA) NEGATIVE, Urine Ketones TRACEH, Urine Nitrite NEGATIVE, Urine Bilirubin NEGATIVE, Urine Urobilinogen 1.0, Urine Leukocyte Esterase NEGATIVE, Urine RBC (Auto) 2+H, Urine RBC 10-25H, Urine WBC RARE, Urine Crystals NONE, Urine Bacteria NEGATIVE, Urine Casts NONE, Urine Mucus NEGATIVE, Urine Culture Indicated NO Microbiology 02/13/20 Influenza Types A,B Antigen (JACKI) - Final, Complete Laboratory Tests 02/12/20 18:12 02/13/20 03:19 02/13/20 03:51 A/P-Cardiology Assessment/Admission Diagnosis Alcohol withdrawal Episodes of atrial flutter with 2:1 AV conduction on tele strips of 02/12/20 Trauma-related loss of eye on the L, remote Discussion and Recomendations * Given iv amio because was having frequent episodes of atrial flutter with RVR at presentation. That now seems to have settled down * Monitor labs and correct as needed * Add beta-cindy for vent rate control * Add apixaban for stroke prophylaxis * Echo to eval LVEF and valve function * Advised to refrain from alcohol and tobacco use Clinical Quality Measures DVT/VTE Risk/Contraindication: Risk Factor Score Per Nursin RFS Level Per Nursing on Admit: 1=Low/No VTE PPX AKIRA LOCKETT MD FACP FAC CCDS Feb 13, 2020 14:57
[2020-02-13] MEDS: APIXABAN 5 MG (ELIQUIS) TABLET PO SCH (20:23)
[2020-02-14] VITALS (24 sets, daily range): BP systolic 97–138; BP diastolic 68–94
[2020-02-14 03:01] LABS: BASOPHILS % (AUTO) 0 % (0-10); EOSINOPHILS # (AUTO) 0.1 10^3/uL (0.0-0.3); EOSINOPHILS % (AUTO) 1 % (0-10); HEMATOCRIT 38 % (40-54); HEMOGLOBIN 12.2 G/DL (13.3-17.7); LYMPHOCYTES # (AUTO) 1.2 X 10^3 (1.0-4.0); LYMPHOCYTES % (AUTO) 9 % (12-44); MEAN CORPUSCULAR HEMOGLOBIN 33 PG (25-34); MEAN CORPUSCULAR HGB CONC 32 G/DL (32-36); MEAN CORPUSCULAR VOLUME 101 FL (80-99); MEAN PLATELET VOLUME 9.7 FL (7.4-10.4); MONOCYTES # (AUTO) 0.9 X 10^3 (0.0-1.0); MONOCYTES % (AUTO) 7 % (0-12); NEUTROPHILS # (AUTO) 11.1 X 10^3 (1.8-7.8); NEUTROPHILS % (AUTO) 83 % (42-75); PLATELET COUNT 184 10^3/uL (130-400); RED CELL DISTRIBUTION WIDTH 14.4 % (10.0-14.5); WHITE BLOOD COUNT 13.3 10^3/uL (4.3-11.0)
[2020-02-14 03:45] LABS: CHLORIDE 106 MMOL/L (98-107); POTASSIUM 4.1 MMOL/L (3.6-5.0); SODIUM 136 MMOL/L (135-145)
[2020-02-14 03:46] LABS: CALCIUM 7.6 MG/DL (8.5-10.1); GLUCOSE 105 MG/DL (70-105)
[2020-02-14 03:48] LABS: CARBON DIOXIDE 23 MMOL/L (21-32)
[2020-02-14 03:50] LABS: CREATININE SERUM 0.73 MG/DL (0.60-1.30); GFR ESTIMATED > 60
[2020-02-14 03:51] LABS: BUN/CREATININE RATIO 7
[2020-02-14 03:52] LABS: MAGNESIUM 2.1 MG/DL (1.6-2.4)
[2020-02-14] MEDS: cefTRIAXone FOR IV USE 1,000 MG in WATER (STERILE) FOR INJECTION 10 ML IV SCH (05:34)
[2020-02-14] MEDS: NS W/KCL 20 MEQ/L 1,000 ML IV SCH ×3 (05:34→19:58)
[2020-02-14] MEDS: metroNIDAZOLE 500MG/100ML IVPB 100 ML IV SCH (05:35)
[2020-02-14] MEDS ORDERED: KCL 20 MEQ TAB (K-DUR) PO SCH (06:00)
[2020-02-14] MEDS ORDERED: MAGNESIUM 1 GM/100 ML IVPB 100 ML IV SCH (06:00)
[2020-02-14] MEDS ORDERED: POTASSIUM CL 10MEQ/50ML IVPB 50 ML IV SCH (06:00)
--- NOTE | 2020-02-14 06:03 | Pulmonary Progress Note ---
Subjective Time Seen by a Provider: 06:01 Subjective/Events-last exam pt is doing better however still on precedex gtt. Currently off amio gtt Sepsis Event Evaluation Height, Weight, BMI Height: '" Weight: lbs. oz. kg; 19.00 BMI Method: Focused Exam Lactate Level 02/13/20 06:27: Lactic Acid Level 0.97 Exam Exam Vital Signs Date Time Temp Pulse Resp B/P (MAP) Pulse Ox O2 Delivery O2 Flow Rate FiO2 02/14/20 04:00 97 Room Air 02/14/20 04:00 77 19 118/74 (89) 96 Room Air 02/14/20 03:00 73 19 125/72 (89) 94 Room Air 02/14/20 02:00 75 16 103/78 (86) 93 Room Air 02/14/20 01:00 77 20 105/73 (84) 92 Room Air 02/14/20 01:00 77 02/14/20 00:00 97 Room Air 02/14/20 00:00 36.3 84 15 123/80 (94) 98 Room Air 02/13/20 23:00 80 22 118/78 (91) 93 Room Air 02/13/20 22:00 79 21 111/76 (88) 91 Room Air 02/13/20 21:00 76 22 119/82 (94) 94 Room Air 02/13/20 20:00 96 Room Air 02/13/20 20:00 82 24 113/76 (88) 94 Room Air 02/13/20 19:41 37.1 02/13/20 19:00 82 20 109/69 (82) 91 Room Air 02/13/20 19:00 84 02/13/20 18:00 85 127/83 (98) 94 Room Air 02/13/20 17:00 87 27 132/87 (102) 97 Room Air 02/13/20 16:00 89 124/80 (95) 94 Room Air 02/13/20 16:00 96 Room Air 02/13/20 15:51 38.0 02/13/20 15:00 106 32 142/96 (111) 100 Room Air 02/13/20 14:00 103 15 131/83 (99) 94 Room Air 02/13/20 13:00 101 20 139/91 (107) 96 Room Air 02/13/20 12:26 105 02/13/20 12:00 96 Room Air 02/13/20 12:00 98 22 134/83 (100) 95 Room Air 02/13/20 11:24 38.6 02/13/20 11:00 104 36 128/82 (97) 95 Room Air 02/13/20 10:00 105 35 133/83 (100) 91 Room Air 02/13/20 09:00 101 25 121/84 (96) 92 Room Air 02/13/20 08:14 36.7 02/13/20 08:00 96 Room Air 02/13/20 08:00 96 12 123/80 (94) Room Air 02/13/20 07:00 79 02/13/20 07:00 80 26 102/73 (83) 95 Room Air I & O 02/14/20 07:00 Intake Total 5075.2 ml Output Total 4225 ml Balance 850.2 ml Height & Weight Height: '" Weight: lbs. oz. kg; 19.00 BMI Method: General Appearance: No Apparent Distress, Chronically ill, Thin HEENT: PERRL/EOMI, Normal ENT Inspection, Pharynx Normal, Moist Mucous Mem branes Neck: Full Range of Motion, Normal Inspection, Non Tender Respiratory: Chest Non Tender, Lungs Clear, Normal Breath Sounds, No Accessory Muscle Use, No Respiratory Distress Cardiovascular: Regular Rate, Rhythm, No Edema, No Gallop, No JVD, No Murmur, Normal Peripheral Pulses Capillary Refill: Less Than 3 Seconds Gastrointestinal: normal bowel sounds, tenderness (mild epigastric tenderness) Extremity: Normal Capillary Refill, Normal Inspection, No Pedal Edema Skin: Normal Color, Warm/Dry Lymphatic: No Adenopathy Results Lab Laboratory Tests 02/12/20 18:12 02/13/20 03:19 02/13/20 03:51 02/14/20 02:50 Assessment/Plan Assessment/Plan Alcohol withdrawal -DAVID protocol N/V no abdominal pain -IVF -Amylase is high however Lipase is normal Leukocytosis r/o infection -Start rocephin flagyl -IVF -Cardenas culture, LA -UDS -check flu and RVP KELSI FERRARO DO Feb 14, 2020 06:03
[2020-02-14] MEDS: IBUPROFEN 600 MG (MOTRIN) TAB PO PRN (06:30)
[2020-02-14] MEDS: ONDANSETRON 4 MG/2 ML (SDV) Z0FRAN IV PRN (06:43)
--- NOTE | 2020-02-14 07:39 | Diagnostic Imaging Report ---
Portable erect AP chest at 330 hours. INDICATION: Alcohol withdrawal. FINDINGS: The heart size is within normal limits and stable when compared to 02/13/2020. The atelectasis/infiltrate in the right infrahilar region seen on the prior exam is again evident, although it is less prominent than the prior study. The lungs are otherwise generally clear. There is no pleural effusion identified. The mediastinum is not widened. The osseous structures are intact. The long-standing fracture of left clavicle and the right ribs seen previously are again evident and no different. In the interval since the prior exam, the right-sided PICC line has been partially retracted. The tip now overlies the midportion of superior vena cava. IMPRESSION: 1. The appearance of the chest has improved somewhat as the right lung base does seem slightly better aerated. A followup study would be recommended for continued evaluation. 2. The right-sided PIC line has been slightly retracted. The tip now overlies the midportion superior vena cava. Dictated by: Dictated on workstation # [id number]
[2020-02-14] MEDS: PANTOPRAZOLE 40 MG (PROTONIX) VIAL IV SCH (08:17)
[2020-02-14] MEDS: meTOprolol SUCCINATE 100 MG (TOPROL XL) TAB PO SCH (08:17)
[2020-02-14] MEDS: APIXABAN 5 MG (ELIQUIS) TABLET PO SCH ×2 (08:17→20:00)
--- NOTE | 2020-02-14 10:45 | Progress Note - Hospitalist ---
Subjective HPI/CC On Admission Date Seen by Provider: Feb 14, 2020 Time Seen by Provider: 09:30 CC: Alcohol withdrawal with episodes of V tach HPI: This is an unfortunate 59yoWM of [address] Beltran who was just released from [facility]ent[facility] who is homeless and just released from [facility] less than 1 week ago, although he does not recall this occurring, then visited the ER again earlier this week for continued social issues along with continued excessive alcohol consumption who presented to the [facility] ER last night in [place] withdrawal and episodes of v tach and unable to make sound decisions. Cardiology was consulted. Patient is currently sleeping and did not require intubation. Subjective/Events-last exam Patient is awake and feels much better. He has no specific complaint other than a headache. He says that he has headaches often and this is not an unusual headache for him and he has chronic sinus problems. He says he has had sinus problems for a long time. No cough no shortness of breath he has a Christian catheter in place. Review of Systems HEENT: Head Aches, Sinus Congestion Neurological: Weakness Focused Exam Lactate Level 02/13/20 06:27: Lactic Acid Level 0.97 Objective Exam Vital Signs Vital Signs Date Time Temp Pulse Resp B/P (MAP) Pulse Ox O2 Delivery O2 Flow Rate FiO2 02/14/20 10:00 77 19 116/77 (90) Room Air 02/14/20 08:00 97 02/14/20 04:00 37.0 Capillary Refill : Less Than 3 Seconds General Appearance: Chronically ill HEENT: Other (Loss of vision left eye) Neck: Limited Range of Motion Respiratory: Chest Non Tender, Lungs Clear, Normal Breath Sounds, No Accessory Muscle Use, No Respiratory Distress Cardiovascular: Regular Rate, Rhythm, No Edema, No Gallop, No JVD Gastrointestinal: Normal Bowel Sounds, No Organomegaly, No Pulsatile Mass, Soft Rectal: Deferred Back: Normal Inspection, No CVA Tenderness, No Vertebral Tenderness Extremity: No Pedal Edema, Other (Clubbing) Neurologic/Psychiatric: Alert, Normal Mood/Affect, Other (Confused) Skin: Normal Color, Warm/Dry Results/Procedures Lab Laboratory Tests 02/14/20 02:50 Patient resulted labs reviewed. Imaging: Reviewed Imaging Report Assessment/Plan Assessment and Plan Assess & Plan/Chief Complaint 1. Ventricular tach versus atrial flutter with wide complex- resolved in sinus rhythm on amiodarone and metoprolol 2. Leukocytosis of uncertain etiology on Flagyl and Rocephin. Patient remains afebrile leukocytosis is improving no etiology of infection so will DC these. 3. Chronic alcoholism on detox protocol. 4. Poor social situation with homelessness 5. Clinical Quality Measures DVT/VTE Risk/Contraindication: Risk Factor Score Per Nursin RFS Level Per Nursing on Admit: 1=Low/No VTE PPX RUBÉN ISAAC MD Feb 14, 2020 10:45
[2020-02-14] MEDS ORDERED: busPIRone 10 MG (BUSPAR) TAB PO ONE (15:00)
[2020-02-14] MEDS: clonazePAM 0.5 MG (KlonoPIN) TAB PO PRN (15:49)
--- NOTE | 2020-02-14 16:01 | Progress Note - Cardiology ---
Cardiology SOAP Progress Note Subjective: No cp or palp or syncope No shortness of breath at rest Gen weakness and malaise No n/v/d Objective: I&O/Vital Signs 02/14/20 02/14/20 02/14/20 02/14/20 04:00 04:00 04:00 05:00 Temp 37.0 Pulse 77 80 Resp 19 26 B/P (MAP) 118/74 (89) 125/88 (100) Pulse Ox 96 97 96 O2 Delivery Room Air Room Air Room Air 02/14/20 02/14/20 02/14/20 02/14/20 06:00 07:00 07:00 08:00 Pulse 84 80 82 Resp 16 8 B/P (MAP) 108/79 (89) 122/68 (86) Pulse Ox 94 97 O2 Delivery Room Air Room Air Room Air 02/14/20 02/14/20 02/14/20 02/14/20 08:00 09:00 10:00 11:00 Pulse 79 78 77 78 Resp 22 14 19 24 B/P (MAP) 106/68 (81) 118/83 (95) 116/77 (90) 114/76 (89) O2 Delivery Room Air Room Air Room Air Room Air 02/14/20 02/14/20 02/14/20 02/14/20 12:00 13:00 13:00 14:00 Pulse 80 86 85 84 Resp 20 20 12 B/P (MAP) 117/91 (100) 108/69 (82) 138/92 (107) O2 Delivery Room Air Room Air Room Air 02/14/20 15:00 Pulse 97 Resp 13 B/P (MAP) 97/68 (78) O2 Delivery Room Air 02/14/20 00:00 Intake Total 3475.2 ml Output Total 2875 ml Balance 600.2 ml Constitutional: AAO x 3, well-developed, well-nourished Respiratory: No accessory muscle use; other (fair to good bilat air entry, diminished at the bases) Cardiovascular: regular rate-rhythm, S1 and S2, systolic murmur (faint HARISH at card base) Gastrointestional: No tender; soft; No guarding, No rebound; audible bowel sounds Extremities: No clubbing, No cyanosis, No significant edema Neurologic/Psychiatric: oriented x 3, other (moves all limbs equally) Skin: warm/dry; No cyanosis, No cool, No rash on exposed areas, No ulcerations on exposed areas Results/Procedures: Labs Laboratory Tests 02/14/20 02:50: White Blood Count 13.3H, Red Blood Count 3.74L, Hemoglobin 12.2L, Hematocrit 38L , Mean Corpuscular Volume 101H, Mean Corpuscular Hemoglobin 33, Mean Corpuscular Hemoglobin Concent 32, Red Cell Distribution Width 14.4, Platelet Count 184, Mean Platelet Volume 9.7, Neutrophils (%) (Auto) 83H, Lymphocytes (%) (Auto) 9L, Monocytes (%) (Auto) 7, Eosinophils (%) (Auto) 1, Basophils (%) (Auto) 0, Neutrophils # (Auto) 11.1H, Lymphocytes # (Auto) 1.2, Monocytes # (Auto) 0.9, Eosinophils # (Auto) 0.1, Basophils # (Auto) 0.0, Sodium Level 136, Potassium Level 4.1, Chloride Level 106, Carbon Dioxide Level 23, Anion Gap 7, Blood Urea Nitrogen 5L, Creatinine 0.73, Estimat Glomerular Filtration Rate > 60, BUN/Creat inine Ratio 7, Glucose Level 105, Calcium Level 7.6L, Phosphorus Level 2.0L, Magnesium Level 2.1 Microbiology 02/13/20 Blood Culture - Preliminary, Resulted No growth 02/13/20 Influenza Types A,B Antigen (JACKI) - Final, Complete Laboratory Tests 02/12/20 18:12 02/13/20 03:19 02/13/20 03:51 02/14/20 02:50 A/P: Assessment: Alcohol withdrawal Episodes of atrial flutter with 2:1 AV conduction on tele strips of 02/12/20 Trauma-related loss of eye on the L, remote Echo of 02/14/20: LVEF 55-65%, grade 2 man dysfunction of LV, mild to mod mitral annular calcification, RVSP 30 mmHg Plan: * Continue bb and apixaban * Advised to refrain from alcohol and tobacco use AKIRA LOCKETT MD [facility] Feb 14, 2020 16:01
[2020-02-14] MEDS: NICOTINE 21 MG (NICODERM) PATCH TD SCH (18:59)
[2020-02-14] MEDS: busPIRone 10 MG (BUSPAR) TAB PO SCH (20:00)
[2020-02-15] VITALS (11 sets, daily range): BP systolic 116–165; BP diastolic 72–110
[2020-02-15] MEDS: LORazepam INJ 2 MG/ML (ATIVAN) VIAL IV PRN (03:10)
[2020-02-15] MEDS: IBUPROFEN 600 MG (MOTRIN) TAB PO PRN (04:02)
[2020-02-15 04:24] LABS: BASOPHILS % (AUTO) 0 % (0-10); EOSINOPHILS # (AUTO) 0.3 10^3/uL (0.0-0.3); EOSINOPHILS % (AUTO) 3 % (0-10); HEMATOCRIT 38 % (40-54); LYMPHOCYTES # (AUTO) 1.2 X 10^3 (1.0-4.0); LYMPHOCYTES % (AUTO) 12 % (12-44); MEAN CORPUSCULAR HEMOGLOBIN 32 PG (25-34); MEAN CORPUSCULAR HGB CONC 32 G/DL (32-36); MEAN CORPUSCULAR VOLUME 101 FL (80-99); MEAN PLATELET VOLUME 10.6 FL (7.4-10.4); MONOCYTES # (AUTO) 0.8 X 10^3 (0.0-1.0); MONOCYTES % (AUTO) 9 % (0-12); NEUTROPHILS # (AUTO) 7.1 X 10^3 (1.8-7.8); NEUTROPHILS % (AUTO) 76 % (42-75); PLATELET COUNT 162 10^3/uL (130-400); RED CELL DISTRIBUTION WIDTH 14.4 % (10.0-14.5); WHITE BLOOD COUNT 9.4 10^3/uL (4.3-11.0)
[2020-02-15] MEDS: clonazePAM 0.5 MG (KlonoPIN) TAB PO PRN (04:37)
[2020-02-15 04:39] LABS: CHLORIDE 106 MMOL/L (98-107); POTASSIUM 4.1 MMOL/L (3.6-5.0); SODIUM 137 MMOL/L (135-145)
[2020-02-15 04:40] LABS: CALCIUM 8.1 MG/DL (8.5-10.1); GLUCOSE 116 MG/DL (70-105)
[2020-02-15 04:42] LABS: CARBON DIOXIDE 21 MMOL/L (21-32)
[2020-02-15 04:44] LABS: CREATININE SERUM 0.75 MG/DL (0.60-1.30); GFR ESTIMATED > 60; PHOSPHORUS 1.6 MG/DL (2.3-4.7)
[2020-02-15 04:45] LABS: BUN/CREATININE RATIO 7
[2020-02-15 04:46] LABS: MAGNESIUM 1.7 MG/DL (1.6-2.4)
[2020-02-15] MEDS ORDERED: morphine INJ 4 MG/ML 1 ML (VIAL/SYRINGE) IVP PRN (05:00)
[2020-02-15] MEDS ORDERED: ONDANSETRON 4 MG/2 ML (SDV) Z0FRAN IVP PRN (05:00)
[2020-02-15] MEDS: ONDANSETRON 4 MG/2 ML (SDV) Z0FRAN IV PRN (05:03)
--- NOTE | 2020-02-15 05:24 | Pulmonary Progress Note ---
Subjective Time Seen by a Provider: 05:23 Sepsis Event Evaluation Height, Weight, BMI Height: '" Weight: lbs. oz. kg; 19.00 BMI Method: Focused Exam Lactate Level 02/13/20 06:27: Lactic Acid Level 0.97 Exam Exam Vital Signs Date Time Temp Pulse Resp B/P (MAP) Pulse Ox O2 Delivery O2 Flow Rate FiO2 02/15/20 04:19 37.4 02/15/20 03:50 37.4 Room Air 02/15/20 03:45 97 Room Air 02/15/20 03:00 95 21 137/102 (114) 95 Room Air 02/15/20 02:00 96 17 145/96 (112) 98 Room Air 02/15/20 01:00 88 24 138/95 (109) 96 Room Air 02/15/20 01:00 88 02/15/20 00:00 96 17 135/85 (102) 98 Room Air 02/14/20 23:20 96 Room Air 02/14/20 23:19 37.6 Room Air 02/14/20 23:00 101 22 119/68 (85) 96 Room Air 02/14/20 22:00 92 16 134/84 (101) 98 Room Air 02/14/20 21:00 84 26 117/94 (102) 99 Room Air 02/14/20 20:05 37.4 86 18 113/82 (92) 98 Room Air 02/14/20 20:00 98 Room Air 02/14/20 19:00 86 22 119/73 (88) 98 Room Air 02/14/20 19:00 86 02/14/20 18:00 78 16 118/80 (93) 99 Room Air 02/14/20 17:00 86 12 123/86 (98) 95 Room Air 02/14/20 16:00 37.4 02/14/20 16:00 97 Room Air 02/14/20 16:00 86 21 108/84 (92) Room Air 02/14/20 15:00 97 13 97/68 (78) Room Air 02/14/20 14:00 84 12 138/92 (107) Room Air 02/14/20 13:00 85 02/14/20 13:00 86 20 108/69 (82) Room Air 02/14/20 12:00 80 20 117/91 (100) Room Air 02/14/20 12:00 97 Room Air 02/14/20 11:00 78 24 114/76 (89) Room Air 02/14/20 10:00 77 19 116/77 (90) Room Air 02/14/20 09:00 78 14 118/83 (95) Room Air 02/14/20 08:00 79 22 106/68 (81) Room Air 02/14/20 08:00 97 Room Air 02/14/20 07:00 82 02/14/20 07:00 80 8 122/68 (86) Room Air 02/14/20 06:00 84 16 108/79 (89) 94 Room Air I & O 02/15/20 07:00 Intake Total 4800 ml Output Total 4550 ml Balance 250 ml Height & Weight Height: '" Weight: lbs. oz. kg; 19.00 BMI Method: General Appearance: Chronically ill HEENT: Other (Loss of vision left eye) Neck: Limited Range of Motion Respiratory: Chest Non Tender, Lungs Clear, Normal Breath Sounds, No Accessory Muscle Use, No Respiratory Distress Cardiovascular: Regular Rate, Rhythm, No Edema, No Gallop, No JVD Capillary Refill: Less Than 3 Seconds Gastrointestinal: normal bowel sounds, tenderness (mild epigastric tenderness) Extremity: No Pedal Edema, Other (Clubbing) Neurologic/Psychiatric: Alert, Normal Mood/Affect, Other (Confused) Skin: Normal Color, Warm/Dry Lymphatic: No Adenopathy Results Lab Laboratory Tests 02/14/20 02:50 02/15/20 03:29 Assessment/Plan Assessment/Plan Alcohol withdrawal -DAVID protocol -Only required Ativan x 1 last night N/V no abdominal pain -IVF Leukocytosis r/o infection - rocephin flagyl -IVF -Cardenas culture, LA -UDS -check flu and RVP KELSI FERRARO DO Feb 15, 2020 05:23
[2020-02-15] MEDS ORDERED: SODIUM PHOSPHATE INJ 30 MM in NS (IVPB) 250 ML IV ONE (05:30)
--- NOTE | 2020-02-15 08:02 | Diagnostic Imaging Report ---
Indication: Dyspnea. Comparison: 02/14/2020. Discussion: Single portable upright view of the chest was obtained. Old right rib fractures are noted. No new consolidation, pleural fluid, or pneumothorax. No osseous abnormality. Normal heart size. Impression: 1. Stable negative chest. Dictated by: Dictated on workstation # [id number]
[2020-02-15] MEDS: busPIRone 10 MG (BUSPAR) TAB PO SCH ×2 (08:55→22:02)
[2020-02-15] MEDS: NICOTINE 21 MG (NICODERM) PATCH TD SCH (08:55)
[2020-02-15] MEDS: meTOprolol SUCCINATE 100 MG (TOPROL XL) TAB PO SCH (08:55)
[2020-02-15] MEDS: APIXABAN 5 MG (ELIQUIS) TABLET PO SCH ×2 (08:55→22:02)
[2020-02-15] MEDS: NICOTINE PATCH REMOVAL TP SCH (08:55)
[2020-02-15] MEDS: PANTOPRAZOLE 40 MG (PROTONIX) VIAL IV SCH (08:56)
--- NOTE | 2020-02-15 09:54 | NUR ---
Verbal order received from to change Clonazepam order to Q6H PRN and to give patient Clonazepam now.
[2020-02-15] MEDS ORDERED: clonazePAM 0.5 MG (KlonoPIN) TAB PO PRN (10:00)
--- NOTE | 2020-02-15 10:11 | Progress Note - Hospitalist ---
Subjective HPI/CC On Admission Date Seen by Provider: Feb 15, 2020 Time Seen by Provider: 09:45 CC: Alcohol withdrawal with episodes of V tach HPI: This is an unfortunate 59yoWM of [address] Beltran who was just released from long-term [facility] who is homeless and just released from [facility] less than 1 week ago, although he does not recall this occurring, then visited the ER again earlier this week for continued social issues along with continued excessive alcohol consumption who presented to the [facility] ER last night in [place] alcohol withdrawal and episodes of v tach and unable to make sound decisions. Cardiology was consulted. Patient is currently sleeping and did not require intubation. Subjective/Events-last exam Patient is sitting up is somewhat shaky and frightened this morning. He is scared of what's going on outside. He is eating well and able to get out of the ICU today. He is oriented to person place and time. Seems to be appropriate and is easy to calm down. He has to get his Klonopin on schedule and his BuSpar. Focused Exam Lactate Level 02/13/20 06:27: Lactic Acid Level 0.97 Objective Exam Vital Signs Vital Signs Date Time Temp Pulse Resp B/P (MAP) Pulse Ox O2 Delivery O2 Flow Rate FiO2 02/15/20 08:00 104 18 116/72 (87) 97 Room Air 02/15/20 04:19 37.4 Capillary Refill : Less Than 3 Seconds General Appearance: Chronically ill HEENT: Other (Enucleated left) Neck: Limited Range of Motion Respiratory: Lungs Clear, Normal Breath Sounds, No Accessory Muscle Use, No Respiratory Distress Cardiovascular: Regular Rate, Rhythm, No Gallop, No Murmur, Normal Peripheral Pulses Gastrointestinal: Non Tender, Soft Extremity: No Pedal Edema Neurologic/Psychiatric: Alert, Oriented x3, Other (Anxious and a little shaky) Results/Procedures Lab Laboratory Tests 02/15/20 03:29 Patient resulted labs reviewed. Imaging: Reviewed Imaging Report Assessment/Plan Assessment and Plan Assess & Plan/Chief Complaint 1. Ventricular tach versus atrial flutter with wide complex- resolved in sinus rhythm on metoprolol 2. Leukocytosis -resolved, cultures all negative. IV antibiotics were discontinued yesterday and the patient remains afebrile 3. Chronic alcoholism on detox protocol. 4. Poor social situation with homelessness-social work consult in the morning 5. Anxiety we will restart Klonopin 0.5 mg every 8 hours on schedule BuSpar 10 twice a day and restart Effexor at a lower dose 6. Gastritis on Protonix Clinical Quality Measures DVT/VTE Risk/Contraindication: Risk Factor Score Per Nursin RFS Level Per Nursing on Admit: 1=Low/No VTE PPX RUBÉN ISAAC MD Feb 15, 2020 10:11
--- NOTE | 2020-02-15 12:30 | NUR ---
SBAR report given to Sarah HADLEY
--- NOTE | 2020-02-15 12:30 | NUR ---
This RN took over patient care at this time. PT alert but confused. verbalizes the want to leave the floor so he can smoke and drink but no other problems at this time
--- NOTE | 2020-02-15 13:18 | Progress Note - Cardiology ---
Cardiology SOAP Progress Note Subjective: Feels better today No cp or palp or syncope or shortness of breath at rest No n/v/d No focal weakness Some persistent gen malaise and weakness Objective: I&O/Vital Signs 02/15/20 02/15/20 02/15/20 02/15/20 02:00 03:00 03:45 03:50 Temp 37.4 Pulse 96 95 Resp 17 21 B/P (MAP) 145/96 (112) 137/102 (114) Pulse Ox 98 95 97 O2 Delivery Room Air Room Air Room Air Room Air 02/15/20 02/15/20 02/15/20 02/15/20 04:00 04:19 05:00 06:00 Temp 37.4 Pulse 101 97 95 Resp 14 24 21 B/P (MAP) 126/97 (107) 139/110 (120) 122/83 (96) Pulse Ox 98 98 96 O2 Delivery Room Air Room Air Room Air 02/15/20 02/15/20 02/15/20 06:37 08:00 08:00 Pulse 102 104 Resp 18 B/P (MAP) 116/72 (87) Pulse Ox 96 97 O2 Delivery Room Air Room Air 02/15/20 00:00 Intake Total 3100 ml Output Total 2100 ml Balance 1000 ml Constitutional: AAO x 3, well-developed, well-nourished Respiratory: No accessory muscle use; other (fair to good bilat air entry, diminished at the bases) Cardiovascular: regular rate-rhythm, S1 and S2, systolic murmur (faint HARISH at card base) Gastrointestional: No tender; soft; No guarding, No rebound; audible bowel sounds Extremities: No clubbing, No cyanosis, No significant edema Neurologic/Psychiatric: oriented x 3, other (moves all limbs equally) Skin: warm/dry; No cyanosis, No cool, No rash on exposed areas, No ulcerations on exposed areas Results/Procedures: Labs Laboratory Tests 02/15/20 03:29: White Blood Count 9.4, Red Blood Count 3.73L, Hemoglobin 12.0L, Hematocrit 38L, Mean Corpuscular Volume 101H, Mean Corpuscular Hemoglobin 32, Mean Corpuscular Hemoglobin Concent 32, Red Cell Distribution Width 14.4, Platelet Count 162, Mean Platelet Volume 10.6H, Neutrophils (%) (Auto) 76H, Lymphocytes (%) (Auto) 12, Monocytes (%) (Auto) 9, Eosinophils (%) (Auto) 3, Basophils (%) (Auto) 0, Neutrophils # (Auto) 7.1, Lymphocytes # (Auto) 1.2, Monocytes # (Auto) 0.8, Eosinophils # (Auto) 0.3, Basophils # (Auto) 0.0, Sodium Level 137, Potassium Level 4.1, Chloride Level 106, Carbon Dioxide Level 21, Anion Gap 10, Blood Urea Nitrogen 5L, Creatinine 0.75, Estimat Glomerular Filtration Rate > 60, BUN/Creatinine Ratio 7, Glucose Level 116H, Calcium Level 8.1L, Phosphorus Level 1.6L, Magnesium Level 1.7 Microbiology 02/13/20 Blood Culture - Preliminary, Resulted No growth 02/13/20 Influenza Types A,B Antigen (JACKI) - Final, Complete Laboratory Tests 02/14/20 02:50 02/15/20 03:29 A/P: Assessment: Alcohol withdrawal Episodes of atrial flutter with 2:1 AV conduction on tele strips of 02/12/20 Trauma-related loss of eye on the L, remote Echo of 02/14/20: LVEF 55-65%, grade 2 man dysfunction of LV, mild to mod mitral annular calcification, RVSP 30 mmHg Plan: * Continue bb and apixaban * Advised to refrain from alcohol and tobacco use * I discussed his CV issues with him and our recommendations regarding treatment * Advised to comply with treatment and f/u with his physicians on an outpt basis after discharge AKIRA LOCKETT MD FACP [facility] CCDS Feb 15, 2020 13:18
[2020-02-15] MEDS: clonazePAM 0.5 MG (KlonoPIN) TAB PO SCH ×2 (13:55→22:01)
--- NOTE | 2020-02-15 14:00 | NUR ---
02/14's non-administered nicotine patch was administered to Pt Right shoulder. This RN searched Pt body for patch that was placed yesterday 02/13 and could not find it. CHAR CONVEYOR TENDERJackeline searched as well.
[2020-02-15] MEDS ORDERED: ANTACID SUSP 30 ML UDC (MYLANTA) PO PRN (15:00)
--- NOTE | 2020-02-15 15:31 | NUR ---
Pt continuous process coffee roaster and keys placed in med room lock cabinet. Pt's room lock not working at this time
[2020-02-15] MEDS: VENlafaxine 37.5 MG (EFFEXOR) TAB PO SCH (16:40)
--- NOTE | 2020-02-16 00:08 | NUR ---
PT B/P ELEVATED AT 180/[address] LOCKETT CALLED. HE ORDERED ONE TIME TOPROL XL 100 MG PO FOR NOW. AND 25MG HYDRALAZINE Q6 PRN
[2020-02-16 00:15] VITALS: BP 178/105
[2020-02-16] MEDS ORDERED: hydrALAZINE (APESOLINE) 20 MG/ML VIAL IV PRN (00:15)
[2020-02-16] MEDS ORDERED: meTOprolol SUCCINATE 100 MG (TOPROL XL) TAB PO ONE (00:15)
[2020-02-16] MEDS ORDERED: hydrALAZINE (APRESOLINE) 25 MG TAB PO PRN (02:30)
[2020-02-16 04:00] VITALS: BP 141/67
[2020-02-16] MEDS: clonazePAM 0.5 MG (KlonoPIN) TAB PO SCH ×2 (06:14→13:53)
[2020-02-16] MEDS: VENlafaxine 37.5 MG (EFFEXOR) TAB PO SCH (06:14)
[2020-02-16 08:00] VITALS: BP 161/87
[2020-02-16] MEDS: NICOTINE PATCH REMOVAL TP SCH (08:34)
[2020-02-16] MEDS: meTOprolol SUCCINATE 100 MG (TOPROL XL) TAB PO SCH (08:34)
[2020-02-16] MEDS: NICOTINE 21 MG (NICODERM) PATCH TD SCH (08:34)
[2020-02-16] MEDS: APIXABAN 5 MG (ELIQUIS) TABLET PO SCH (08:34)
[2020-02-16] MEDS: busPIRone 10 MG (BUSPAR) TAB PO SCH (08:35)
[2020-02-16] MEDS ORDERED: PANTOPRAZOLE 40 MG (PROTONIX) TAB PO SCH (09:00)
[2020-02-16] MEDS: LORazepam INJ 2 MG/ML (ATIVAN) VIAL IV PRN (09:55)
--- NOTE | 2020-02-16 10:36 | Discharge Summary ---
Diagnosis/Chief Complaint Date of Admission Feb 12, 2020 at 21:00 Date of Discharge 02/16/2020 Admission Diagnosis Admission Diagnosis EtOH Withdraw EtOHism Atrial Flutter Homelessness Discharge Diagnosis See Above Discharge Summary-Simple/Stand Consultations Dr Darnell: Pulmonary and Critical Care Dr Pena: Cardiology Discharge Physical Examination Allergies: Coded Allergies: No Known Drug Allergies (Unverified , 01/21/20) Vitals & I&Os Vital Sign - Last 12Hours Date Time Temp Pulse Resp B/P (MAP) Pulse Ox O2 Delivery O2 Flow Rate FiO2 02/16/20 08:00 96 Room Air 02/16/20 08:00 36.7 87 16 161/87 (111) Intake and Output 02/16/20 00:00 Intake Total 495 ml Balance 495 ml General Appearance: Alert, No Acute Distress, Other (cachetic) HEENT: Mucous Memb Moist/[place] Respiratory: Clear to Auscultation, Normal Air Movement Cardiovascular: Regular Rate, No Murmurs Abdominal: Normal Bowel Sounds, Soft, No Masses Extremities: No Edema, No Tenderness/Swelling Neuro: Sensation Intact, Cranial Nerves 3-12 NL Hospital Course Was the Problem List Reviewed?: Yes See final discharge diagnosis. Discussion & Recommendations 59 yo M with severe alcoholism that has been admitted several times this year for withdraw. Patient states that he has been trying to cut down on his own. He was recently at [facility] and then was admitted to the hospital the day after. Patient was having tachycardia and was found to have atrial flutter during withdraw. Cardiology was consulted and patient was started on Eliquis and Metoprolol to help with rate control. Patient to get meds at [facility]. Discharge Condition at discharge Poor Prognosis Instructions to patient/family Please see electronic discharge instructions given to patient. Discharge Medications Reviewed and agree with Discharge Medication list on patient's Discharge Instruction sheet Clinical Quality Measures DVT/VTE Risk/Contraindication: Risk Factor Score Per Nursin RFS Level Per Nursing on Admit: 1=Low/No VTE PPX GHADA CARRILLO MD Feb 16, 2020 10:36
[2020-02-16] MEDS ORDERED: APIX5TAB PO (10:39)
[2020-02-16] MEDS ORDERED: MTP100TCR PO (10:39)
--- NOTE | 2020-02-16 10:40 | Discharge Summary ---
Discharge [facility] Reconcile Patient Problems Problems Reviewed?: Yes Discharge Medications New, Converted or Re-Newed RX: Transmitted to Pharmacy New Medications: Apixaban (Eliquis) 5 Mg Tablet 5 MG PO BID, #60 TAB Metoprolol Succinate (Metoprolol Succinate) 100 Mg Tab.er.24h 100 MG PO DAILY, #30 TAB Continued Medications: Buspirone HCl (Buspirone HCl) 10 Mg Tablet 20 MG PO BID, TAB TAKES 2 (10MG) TABS TWICE DAILY Clonazepam (Clonazepam) 1 Mg Tablet 0.5-1 MG PO BID PRN for ANXIETY, TAB Pantoprazole Sodium (Pantoprazole Sodium) 40 Mg Tablet.dr 40 MG PO DAILY, TAB Venlafaxine HCl (Venlafaxine HCl ER) 150 Mg Cap.er.24h 150 MG PO DAILY, CAP Patient Instructions Goal/Follow Up Appt: Fjairo with Dr Beltran Patient admitted after being released from alf with concerns of EtOH withdrawl Activity & Diet Discharge Diet: No Restrictions Activity as Tolerated: Yes Orders-Post D/C & Referrals Pneu Vac Indicated: Yes GHADA CARRILLO MD Feb 16, 2020 10:40
--- NOTE | 2020-02-16 10:50 | Progress Note - Cardiology ---
Cardiology SOAP Progress Note Subjective: Sitting up in bed. Reports he just received Ativan and Klonipin. Gen muscle and joint pain, reports it is d/t fibromyalgia. No c/o CP, dyspnea or palpitations Objective: I&O/Vital Signs 02/17/20 00:00 Intake Total 1137 ml Balance 1137 ml Constitutional: AAO x 3, well-developed, well-nourished Respiratory: No accessory muscle use; other (fair to good bilat air entry, diminished at the bases) Cardiovascular: regular rate-rhythm, S1 and S2, systolic murmur (faint HARISH at card base) Gastrointestional: No tender; soft; No guarding, No rebound; audible bowel sounds Extremities: No clubbing, No cyanosis, No significant edema Neurologic/Psychiatric: oriented x 3, other (moves all limbs equally) Skin: warm/dry; No cyanosis, No cool, No rash on exposed areas, No ulcerations on exposed areas Results/Procedures: Labs Microbiology 02/13/20 Blood Culture - Preliminary, Resulted No growth 02/13/20 Influenza Types A,B Antigen (JACKI) - Final, Complete A/P: Assessment: Alcohol withdrawal Episodes of atrial flutter with 2:1 AV conduction on tele strips of 02/12/20 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
--- NOTE | 2020-02-16 11:59 | NUR ---
CM/SS: Visited with pt as to plan for discharge Plan: Pt remains homeless , however will discharge today. Summary: Pt reports feeling better on today. Pt is familiar with this worker from his previous hospital stays. Pt reports he has been staying a hotels and that he may not have any money left. This worker tries to educate pt on that not being a sustainable plan. He reports he has been staying at the [facility] in the past. Pt mentions his mother as an option, however his mother has a restraining order against him. He is reminded she is not option for placement. Staff reports that pt has been asking for alcohol. After speaking with physician, pt can discharge today. Pt is notified that he can leave today. He reports he needs to see the . Pt reminded that he has seen the today, and that he will need to call his bank. Pt attempts to call his bank - [place] [phone],and there system is down, so they are unable to tell him his balance. He will attempt to call back at a later time. This worker will follow up. Addendum: 02/16/20 at 1512 by ADDISON RAMIREZ SS Pt is able to call bank and verified that he has $350.03 in the bank. Pt reports that he will need to get to the bank to get his money and then he will make other arrangements. Pt will be provided a taxi cab ride to go to his bank - [address] will curing pickling packer the cost of the cab to [place] located at [address] and then pt will determine his plan once he has money either to get a hotel or make other arrangements to get to [place]. RN is given the taxi voucher to give to the taxi upon arrival to curing pickling packer pt.
[2020-02-16 12:00] VITALS: BP 160/91
--- NOTE | 2020-02-16 14:15 | Progress Note - Cardiology ---
Cardiology SOAP Progress Note Subjective: No cp or palp or syncope No shortness of breath at rest No n/v/d No focal weakness Objective: I&O/Vital Signs 02/16/20 02/16/20 02/16/20 02/16/20 04:00 06:44 08:00 08:00 Temp 36.8 36.7 Pulse 84 81 87 Resp 20 16 B/P (MAP) 141/67 (91) 161/87 (111) Pulse Ox 97 96 96 O2 Delivery Room Air Room Air Room Air 02/16/20 12:00 Temp 37.0 Pulse 79 Resp 18 B/P (MAP) 160/91 (114) Pulse Ox 98 O2 Delivery Room Air 02/16/20 00:00 Intake Total 495 ml Balance 495 ml Constitutional: AAO x 3, well-developed, well-nourished Respiratory: No accessory muscle use; other (fair to good bilat air entry, diminished at the bases) Cardiovascular: regular rate-rhythm, S1 and S2, systolic murmur (faint HARISH at card base) Gastrointestional: No tender; soft; No guarding, No rebound; audible bowel sounds Extremities: No clubbing, No cyanosis, No significant edema Neurologic/Psychiatric: oriented x 3, other (moves all limbs equally) Skin: warm/dry; No cyanosis, No cool, No rash on exposed areas, No ulcerations on exposed areas Results/Procedures: Labs Microbiology 02/13/20 Blood Culture - Preliminary, Resulted No growth 02/13/20 Influenza Types A,B Antigen (JACKI) - Final, Complete Laboratory Tests 02/15/20 03:29 A/P: Assessment: Alcohol withdrawal Episodes of atrial flutter with 2:1 AV conduction on tele strips of 02/12/20 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
[2020-02-16 14:52] LABS: RSV PCR TEST Not Detected (Not Detected)
== END 2020-02-16 15:00 | disposition home or self-care (01) | DRG 897 ==
LOC: EDUNIT# 17:22 → ER FS 17:24 → ICU 21:00 → 4TH 02-15 11:19
PROVIDERS: ADMIT Internal Medicine; ATTEND Internal Medicine
DX: F10.231 Alcohol dependence with withdrawal delirium (principal); I48.92 Unspecified atrial flutter; K29.70 Gastritis, unspecified, without bleeding; E87.6 Hypokalemia; F17.210 Nicotine dependence, cigarettes, uncomplicated; J44.9 Chronic obstructive pulmonary disease, unspecified; D72.829 Elevated white blood cell count, unspecified; F41.9 Anxiety disorder, unspecified; Z59.0 Homelessness; Z79.01 Long term (current) use of anticoagulants; Z90.01 Acquired absence of eye
CPT/HCPCS: 36415; 36569; 71045; 74177; 76937; 80048; 80053; 80306; 80320; 81000; 82140; 82150; 82728; 83605; 83690; 83735; 84100; 84145; 85007; 85025; 85027; 85379; 85610; 85730; 86141; 87040; 87081; 87449; 87631; 87804; 87899; 93005; 93306; 96361; 96365; 96366; 96367; 96375; 96376

== ENCOUNTER 2020-02-24 15:09 | Emergency (ER) | payer MEDICARE ==
[~2020-02-24 15:09] MED LIST changes: +APIX5TAB PO; +BUSP10TA95 PO; +CLON1TAB13 PO; +MTP100TCR PO; +PANT40TA3 PO; +VENL150C98 PO
[2020-02-24] MEDS ORDERED: NS IV 1000 ML 1,000 ML IV SCH (15:45)
--- NOTE | 2020-02-24 16:03 | ED GI ---
General Chief Complaint: Abdominal/GI Problems Stated Complaint: VOMITING,HEADACHE,BODY ACHES Source of Information: Patient Exam Limitations: No Limitations History of Present Illness Date Seen by Provider: Feb 24, 2020 Time Seen by Provider: 15:35 Initial Comments The patient is a 59-year-old male well-known to this emergency department who presents for evaluation of nausea and vomiting over the last 3 days. The patient is an alcoholic and is a poor historian. He was recently admitted to the hospital and was tested for COVID-19 and was found to be negative. He is alert and oriented 4, calm, and appears to be in no distress. He denies fevers or chills, chest pain or shortness of breath, back or flank pain, urinary complaints, abdominal pain, dizziness or syncope. He states his last drink was about 5 hours ago. Timing/Duration: 3-4 Days Severity/Quality: Moderate Radiation: No Radiation Activities at Onset: None Associated Symptoms: Nausea/Vomiting Allergies and Home Medications Allergies Coded Allergies: No Known Drug Allergies (Unverified , 01/21/20) Home Medications Apixaban 5 Mg Tablet, 5 MG PO BID Prescribed by: GHADA CARRILLO on 02/16/20 1039 Buspirone HCl 10 Mg Tablet, 20 MG PO BID, (Reported) TAKES 2 (10MG) TABS TWICE DAILY Clonazepam 1 Mg Tablet, 0.5-1 MG PO BID PRN for ANXIETY, (Reported) Metoprolol Succinate 100 Mg Tab.er.24h, 100 MG PO DAILY Prescribed by: GHADA CARRILLO on 02/16/20 1039 Ondansetron 4 Mg Tab.rapdis, 4 MG PO Q6H PRN for NAUSEA/VOMITING Prescribed by: TARA RUBY on 02/24/20 165 Pantoprazole Sodium 40 Mg Tablet.dr, 40 MG PO DAILY, (Reported) Potassium Chloride 20 Meq Tablet.er, 20 MEQ PO DAILY Prescribed by: TARA RUBY on 02/24/20 165 Venlafaxine HCl 150 Mg Cap.er.24h, 150 MG PO DAILY, (Reported) Patient Home Medication List Home Medication List Reviewed: Yes Review of Systems Review of Systems Constitutional: no symptoms reported EENTM: No Symptoms Reported Respiratory: No Symptoms Reported Cardiovascular: No Symptoms Reported Gastrointestinal: Nausea, Vomiting Genitourinary: No Symptoms Reported Musculoskeletal: no symptoms reported Skin: no symptoms reported Psychiatric/Neurological: No Symptoms Reported Endocrine: No Symptoms Reported Hematologic/Lymphatic: No Symptoms Reported All Other Systems Reviewed Negative Unless Noted: Yes Past Qlcphdx-Cahepn-Foflgm Hx Past Med/Social Hx: Reviewed Nursing Past Med/Soc Hx Patient Social History Alcohol Use: Regular Use Number of Drinks Today: GG Alcohol Beverage of Choice: Whiskey Recreational Drug Use: No Smoking Status: Current Everyday Smoker Type Used: Cigarettes 2nd Hand Smoke Exposure: Yes Recent Foreign Travel: No Contact w/Someone Who Travel: No Recent Hopitalizations: Yes (Discharged 02/04/20 (rule out COVID-19)) Physical Abuse: No Sexual Abuse: No Mistreated: No Fear: No Seasonal Allergies Seasonal Allergies: No Past Medical History Surgeries: No Respiratory: Yes COPD Cardiac: Yes Neurological: No Genitourinary: No Gastrointestinal: No Musculoskeletal: No Endocrine: No HEENT: No Cancer: No Psychosocial: Yes (Alcoholic, no permanent residence) Integumentary: No Physical Exam Vital Signs Vital Signs - First Documented 02/24/20 02/24/20 15:15 17:40 Temp 37.0 Pulse 99 Resp 18 B/P (MAP) 140/97 Pulse Ox 97 O2 Delivery Room Air Capillary Refill : Height/Weight/BMI Height: '" Weight: lbs. oz. kg; 19.00 BMI Method: General Appearance: WD/WN, no apparent distress HEENT: PERRL/EOMI, pharynx normal Neck: non-tender, full range of motion, supple Respiratory: lungs clear, normal breath sounds, no respiratory distress Cardiovascular: regular rate, rhythm, no edema, no JVD Gastrointestinal: normal bowel sounds, non tender, soft Extremities: non-tender, normal inspection, no pedal edema Neurologic/Psychiatric: no motor/sensory deficits, alert, normal mood/affect Skin: normal color, warm/dry Progress/Results/Core Measures Results/Orders Lab Results Laboratory Tests Test 02/24/20 16:07 Range/Units White Blood Count 9.1 4.3-11.0 10^3/uL Red Blood Count 4.11 L 4.35-5.85 10^6/uL Hemoglobin 13.4 13.3-17.7 G/DL Hematocrit 40 40-54 % Mean Corpuscular Volume 97 80-99 FL Mean Corpuscular Hemoglobin 33 25-34 PG Mean Corpuscular Hemoglobin Concent 34 32-36 G/DL Red Cell Distribution Width 14.5 10.0-14.5 % Platelet Count 346 130-400 10^3/uL Mean Platelet Volume 9.4 7.4-10.4 FL Neutrophils (%) (Auto) 65 42-75 % Lymphocytes (%) (Auto) 21 12-44 % Monocytes (%) (Auto) 12 0-12 % Eosinophils (%) (Auto) 1 0-10 % Basophils (%) (Auto) 1 0-10 % Neutrophils # (Auto) 5.9 1.8-7.8 X 10^3 Lymphocytes # (Auto) 2.0 1.0-4.0 X 10^3 Monocytes # (Auto) 1.1 H 0.0-1.0 X 10^3 Eosinophils # (Auto) 0.1 0.0-0.3 10^3/uL Basophils # (Auto) 0.1 0.0-0.1 10^3/uL Sodium Level 131 L 135-145 MMOL/L Potassium Level 3.3 L 3.6-5.0 MMOL/L Chloride Level 93 L 98-107 MMOL/L Carbon Dioxide Level 22 21-32 MMOL/L Anion Gap 16 H 5-14 MMOL/L Blood Urea Nitrogen 2 L 7-18 MG/DL Creatinine 0.70 0.60-1.30 MG/DL Estimat Glomerular Filtration Rate > 60 BUN/Creatinine Ratio 3 Glucose Level 116 H 70-105 MG/DL Calcium Level 8.7 8.5-10.1 MG/DL Corrected Calcium 8.9 8.5-10.1 MG/DL Total Bilirubin 0.7 0.1-1.0 MG/DL Aspartate Amino Transf (AST/SGOT) 38 H 5-34 U/L Alanine Aminotransferase (ALT/SGPT) 57 H 0-55 U/L Alkaline Phosphatase 58 40-136 U/L Total Protein 6.4 6.4-8.2 GM/DL Albumin 3.7 3.2-4.5 GM/DL Lipase 30 8-78 U/L Serum Alcohol < 10 <10 MG/DL My Orders Orders - TARA RUBY DO Cbc With Automated Diff (02/24/20 15:36) Comprehensive Metabolic Panel (02/24/20 15:36) Alcohol (02/24/20 15:36) Ns Iv 1000 Ml (Sodium Chloride 0.9%) (02/24/20 15:45) Lipase (02/24/20 15:36) Ondansetron Injection (Zofran Injectio (02/24/20 16:30) Potassium Chloride (Tablet) (K Dur Table (02/24/20 16:45) Ondansetron Injection (Zofran Injectio (02/24/20 17:30) Medications Given in ED Current Medications Medications Dose Ordered Sig/Glory Route Start Time Stop Time Status Last Admin Dose Admin Ondansetron HCl 4 mg ONCE ONCE IVP 02/24/20 16:30 02/24/20 16:32 DC 02/24/20 16:32 4 MG Ondansetron HCl 4 mg ONCE ONCE IVP 02/24/20 17:30 02/24/20 17:31 DC 02/24/20 17:19 4 MG Potassium Chloride 40 meq ONCE ONCE PO 02/24/20 16:45 02/24/20 16:46 DC 02/24/20 16:50 40 MEQ Vital Signs/I&O 02/24/20 02/24/20 15:15 17:40 Temp 37.0 36.8 Pulse 99 97 Resp 18 18 B/P (MAP) 140/97 Pulse Ox 97 100 O2 Delivery Room Air Room Air Progress Progress Note : Progress Note @1645 - patient updated on lab results which suggests some dehydration and hypokalemia. The patient has not vomited since arrival. Advised him to follow up with his PCP in the next 1-2 days and to return to the Emergency Department immediately for new or worsening symptoms. The patient expresses verbal understanding and agreement with the plan and is stable for discharge home at this time. @1740 - The pt vomited but this was after being given the potassium tablet. He states he is feeling better. Advised crushing up the tablets at home and mixing with pudding or apple sauce. The pt has no new complaints. Departure Impression Primary Impression: Dehydration Additional Impressions: Nausea and vomiting Hypokalemia Disposition: 01 HOME, SELF-CARE Condition: Stable Departure-Patient Inst. Decision time for Depature: 17:40 Referrals: SELF,EJ SWAN (PCP/Family) Primary Care Physician Patient Instructions: Nausea and Vomiting, Adult (DC), Hypokalemia Add. Discharge Instructions: Follow-up with your doctor in the next 1-2 days. Return to the emergency Department immediately for new or worsening symptoms. Take the prescribed medicine as directed. Scripts Ondansetron (Ondansetron Odt) 4 Mg Tab.rapdis 4 MG PO Q6H PRN for NAUSEA/VOMITING, #20 TAB 0 Refills Prov: TARA RUBY DO 02/24/20 Potassium Chloride (Potassium Chloride) 20 Meq Tablet.er 20 MEQ PO DAILY for 10 Days, #10 TAB Prov: TARA RUBY DO 02/24/20 TARA RUBY DO Feb 24, 2020 16:03
[2020-02-24 16:19] LABS: HEMOGLOBIN 13.4 G/DL (13.3-17.7); MEAN CORPUSCULAR HEMOGLOBIN 33 PG (25-34); WHITE BLOOD COUNT 9.1 10^3/uL (4.3-11.0)
[2020-02-24 16:20] LABS: BASOPHILS # (AUTO) 0.1 10^3/uL (0.0-0.1); BASOPHILS % (AUTO) 1 % (0-10); EOSINOPHILS # (AUTO) 0.1 10^3/uL (0.0-0.3); EOSINOPHILS % (AUTO) 1 % (0-10); HEMATOCRIT 40 % (40-54); LYMPHOCYTES % (AUTO) 21 % (12-44); MEAN CORPUSCULAR HGB CONC 34 G/DL (32-36); MEAN CORPUSCULAR VOLUME 97 FL (80-99); MEAN PLATELET VOLUME 9.4 FL (7.4-10.4); MONOCYTES # (AUTO) 1.1 X 10^3 (0.0-1.0); MONOCYTES % (AUTO) 12 % (0-12); NEUTROPHILS # (AUTO) 5.9 X 10^3 (1.8-7.8); NEUTROPHILS % (AUTO) 65 % (42-75); PLATELET COUNT 346 10^3/uL (130-400); RED CELL DISTRIBUTION WIDTH 14.5 % (10.0-14.5)
[2020-02-24] MEDS ORDERED: ONDANSETRON 4 MG/2 ML (SDV) Z0FRAN IVP ONE ×2 (16:30→17:30)
[2020-02-24 16:35] LABS: BUN/CREATININE RATIO 3; CALCIUM 8.7 MG/DL (8.5-10.1); CARBON DIOXIDE 22 MMOL/L (21-32); CHLORIDE 93 MMOL/L (98-107); GFR ESTIMATED > 60; GLUCOSE 116 MG/DL (70-105); POTASSIUM 3.3 MMOL/L (3.6-5.0); SODIUM 131 MMOL/L (135-145)
[2020-02-24 16:36] LABS: ALANINE AMINOTRANSFERASE 57 U/L (0-55); ALBUMIN 3.7 GM/DL (3.2-4.5); ALKALINE PHOSPHATASE 58 U/L (40-136); BILIRUBIN,TOTAL 0.7 MG/DL (0.1-1.0); LIPASE 30 U/L (8-78); TOTAL PROTEIN 6.4 GM/DL (6.4-8.2)
[2020-02-24] MEDS ORDERED: KCL 20 MEQ TAB (K-DUR) PO ONE (16:45)
[2020-02-24] MEDS ORDERED: ONDA4TAB11 PO (16:52)
[2020-02-24] MEDS ORDERED: POTA-51 PO (16:52)
--- OUTSIDE RECORDS SUMMARY | 2020-02-24 16:53 | XMS REPORT | Continuity of Care Document ---
Author Organization Unknown Address Unknown Phone Unavailable Allergies Active Description Code Type Severity Reaction Onset Reported/Identified Relationship to Patient Clinical Status Yes No Known Drug Allergies [id number] Drug Allergy Unknown N/A 01/21/2020 Medications There [...] SELF EJ SWAN Ot R50.9 FEVER, UNSPECIFIED 01/21/2020 JANEY ALTAMIRANO MD Ot F10.10 ALCOHOL ABUSE, UNCOMPLICATED 01/21/2020 JANEY ALTAMIRANO MD Ot Y90.8 BLOOD ALCOHOL LEVEL OF 240 MG/100 ML OR 01/23/2020 JANEY ALTAMIRANO MD Ot F10.10 ALCOHOL ABUSE, UNCOMPLICATED 01/23/2020 JANEY ALTAMIRANO MD Ot Y90.8 BLOOD ALCOHOL LEVEL OF 240 MG/100 ML OR 02/04/2020 MAGALI SEBASTIAN MD Ot A08 .4 VIRAL INTESTINAL INFECTION, UNSPECIFIED 02/04/2020 MAGALI SEBASTIAN MD Ot E86 .0 DEHYDRATION 02/04/2020 MAAGLI SEBASTIAN MD Ot F10.20 ALCOHOL DEPENDENCE, UNCOMPLICATED [...] Ot E87.6 HYPOKALEMIA 02/05/2020 NIDIA STEVE MD T Ot F17.210 NICOTINE DEPENDENCE, CIGARETTES, UNCOMPL 02/05/2020 NIDIA STEVE MD Ot J44.9 CHRONIC OBSTRUCTIVE PULMONARY DISEASE, U 02/05/2020 NIDIA STEVE MD T Ot R11.2 NAUSEA WITH VOMITING, UNSPECIFIED 02/05/2020 NIDIA STEVE MD Ot R51 HEADACHE 02/06/2020 NIDIA STEVE MD Ot E87.6 HYPOKALEMIA 02/06/2020 NIDIA STEVE MD T Ot F17.210 NICOTINE DEPENDENCE, CIGARETTES, UNCOMPL 02/06/2020 NIDIA STEVE MD Ot J44.9 CHRONIC OBSTRUCTIVE PULMONARY DISEASE, U 02/06/2020 NIDIA STEVE MD Ot R11.2 NAUSEA WITH VOMITING, UNSPECIFIED 02/06/2020 NIDIA STEVE MD T Ot R51 HEADACHE 02/12/2020 NIDIA STEVE MD Ot E87.6 HYPOKALEMIA 02/12/2020 NIDIA STEVE MD T Ot F17.210 NICOTINE DEPENDENCE, CIGARETTES, UNCOMPL 02/12/2020 EVI SWAN, NIDIA Mckeon Ot J44.9 CHRONIC OBSTRUCTIVE PULMONARY DISEASE, U 02/12/2020 NIDIA STEVE MD Ot R11.2 NAUSEA WITH VOMITING, UNSPECIFIED 02/12/2020 NIDIA STEVE MD Ot R51 HEADACHE 02/12/2020 NIDIA STEVE MD Ot E87.6 HYPOKALEMIA 02/12/2020 NIDIA STEVE MD Ot F17.210 NICOTINE DEPENDENCE, CIGARETTES, UNCOMPL 02/12/2020 NIDIA STEVE MD Ot J44.9 CHRONIC OBSTRUCTIVE PULMONARY DISEASE, U 02/12/2020 NIDIA STEVE MD Ot R11.2 NAUSEA WITH VOMITING, UNSPECIFIED 02/12/2020 NIDIA STEVE MD Ot R51 HEADACHE 02/16/2020 REDD DO, SANJAY Ot D72.82 9 ELEVATED WHITE BLOOD CELL COUNT, UNSPECI 02/16/2020 REDD DO, SANJAY Ot E87.6 HYPOKALEMIA 02/16/2020 REDD DO, SANJAY Ot F10.23 1 ALCOHOL DEPENDENCE WITH WITHDRAWAL DELIR 02/16/2020 REDD DO, SANJAY Ot F17.21 0 NICOTINE DEPENDENCE, CIGARETTES, UNCOMPL 02/16/2020 REDD DO, SANJAY Ot F41.9 ANXIETY DISORDER, UNSPECIFIED 02/16/2020 REDD DO, SANJAY Ot H54.7 UNSPECIFIED VISUAL LOSS 02/16/2020 REDD DO, SANJAY Ot I48.92 UNSPECIFIED ATRIAL FLUTTER 02/16/2020 REDD DO, SANJAY Ot J44.9 CHRONIC OBSTRUCTIVE PULMONARY DISEASE, U 02/16/2020 REDD DO, SANJAY Ot K29.70 GASTRITIS, UNSPECIFIED, WITHOUT BLEEDING 02/16/2020 REDD DO, SANJAY Ot R11.2 NAUSEA WITH VOMITING, UNSPECIFIED 02/16/2020 REDD DO, SANJAY Ot Z59.0 HOMELESSNESS 02/16/2020 REDD DO, SANJAY Ot 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 Results Test Result Range [facility] - 09 PANEL (PROFILE 1) - 04/25/19 [...] - 02/03/20 18:40 Bacterial blood culture NG NRG Bacterial blood culture - 02/03/20 18:40 Bacterial blood culture NG NRG Influenza virus A and B antigen detectio [...] urinalysis with reflex to culture NO NRG PT panel in platelet poor plasma by coag ulation assay - 02/12/20 00:00 Prothrombin time (PT) in platelet poor plasma by coagu lation assay 14.5 s 12.2-14.7 INR in platelet poor plasma or blood by coagulation as say 1.1 0.8-1.4 Activated partial thromboplastin time (a PTT) in platelet poor plasma bycoagulation assay - 02/12/20 00:00 Activated partial thromboplastin time (a PTT) in platelet poor plasma bycoagulation assay 38 s 24-35 Serum or plasma ferritin measurement (ma ss/volume) - 02/12/20 14:30 Serum or plasma ferritin measurement (mass/volume) 118.5 % 32.0-356.0 Urine Legionella pneumophila antigen ass ay - 02/12/20 14:30 Urine Legionella pneumophila antigen assay Negativ e NRG Streptococcus pneumoniae antigen detecti on - 02/12/20 14:30 Streptococcus pneumoniae antigen detection Negativ e NRG RESPIRATORY VIRUS PANEL - 02/12/20 14:30 Serum ragweed IgE antibody assay Not Detected Not Detected Serum or plasma aripiprazole measurement (mass/volume) Footnote Not Detected PARAINFLU 3 PCR Footnote Not Detected METAPNEUMO PCR Not Detected Not Detecte d Adenovirus detection, CSF, PCR Footnote Not Detected [...] plasma ethanol measurement (mass/volume) 123 mg/dL <10 Methicillin resistant Staphylococcus aur eus (MRSA) screening culture - 02/12/20 23:20 Methicillin resistant Staphylococcus aureus (MRSA) scr eening culture NEG NRG Complete blood count (CBC) with automate d white blood cell (WBC) differential - 02/13/20 03:19 Blood leukocytes automated count (number/volume) 17.3 10*3/uL 4.3-11.0 Blood erythrocytes automated count (number/volume) 4.40 10*6/uL 4.35-5.85 Venous blood hemoglobin measurement (mass/volume) 14.2 g/dL 13.3-17.7 Blood hematocrit (volume fraction) 43 % 40-54 Automated erythrocyte mean corpuscular volume 98 [ foz_us] 80-99 Automated erythrocyte mean corpuscular h emoglobin (mass per erythrocyte) 32 pg 25-34 Automated erythrocyte mean corpuscular h emoglobin concentration measurement (mass/volume) 33 g/dL 32-36 Automated erythrocyte distribution width ratio 14. 1 % 10.0- 14.5 Automated blood platelet count (count/volume) 244 10*3/uL 130-400 Automated blood platelet mean volume measurement 9.7 [foz_us] 7.4-10.4 Automated blood neutrophils/100 leukocytes 78 % 42-75 Automated blood lymphocytes/100 leukocytes 10 % 12-44 Blood monocytes/100 leukocytes 12 % 0-12 Automated blood eosinophils/100 leukocytes 0 % 0-10 Automated blood basophils/100 leukocytes 0 % 0-10 Blood neutrophils automated count (number/volume) 13.5 10*3 1.8-7.8 Blood lymphocytes automated count (number/volume) 1.7 10*3 1.0-4.0 Blood monocytes automated count (number/volume) 2. 1 10*3 0.0-1.0 Automated eosinophil count 0.0 10*3/uL 0 .0-0.3 Automated blood basophil count (count/volume) 0.0 10*3/uL 0.0-0.1 Comprehensive metabolic panel - 02/13/20 03:51 Serum or plasma sodium measurement (moles/volume) 136 mmol/L 135-145 Serum or plasma potassium measurement (moles/volume) 4.0 mmol/L 3.6-5.0 Serum or plasma chloride measurement (moles/volume) 100 mmol/L 98-107 Carbon dioxide 25 mmol/L 21-32 Serum or plasma anion gap determination (moles/volume) 11 mmol/L 5-14 Serum or plasma urea nitrogen measurement (mass/volume ) 5 mg/dL 7-18 Serum or plasma creatinine measurement (mass/volume) 0.77 mg/dL 0.60-1.30 Serum or plasma urea nitrogen/creatinine mass ratio 6 NRG Serum or plasma creatinine measurement w ith calculation of estimated glomerular filtration rate > NRG Serum or plasma glucose measurement (mass/volume) 116 mg/dL 70-105 Serum or plasma calcium measurement (mass/volume) 8.0 mg/dL 8.5-10.1 Serum or plasma total bilirubin measurement (mass/volu me) 1.4 mg/dL 0.1-1.0 Serum or plasma alkaline phosphatase guevara surement (enzymatic activity/volume) 67 U/L 40-136 Serum or plasma aspartate aminotransfera se measurement (enzymatic activity/volume) 29 U/L 5-34 Serum or plasma alanine aminotransferase measurement (enzymatic activity/volume) 24 U/L 0-55 Serum or plasma protein measurement (mass/volume) 6.5 g/dL 6.4-8.2 Serum or plasma albumin measurement (mass/volume) 3.6 g/dL 3.2-4.5 CALCIUM CORRECTED 8.3 mg/dL 8.5-10.1 Serum or plasma phosphate measurement (m ass/volume) - 02/13/20 03:51 Serum or plasma phosphate measurement (mass/volume) 2.2 mg/dL 2.3-4.7 Magnesium - 02/13/20 03:51 Magnesium 2.7 mg/dL 1.6-2.4 Urine drug screening test - 02/13/20 05: 47 Urine phencyclidine detection by screening method NEGATIVE NEGATIVE Urine benzodiazepines detection by screening method POSITIVE NEGATIVE Urine cocaine detection NEGATIVE NEGATI VE [...] TIVE Urine propoxyphene detection NEGATIVE N EGATIVE Influenza virus A and B antigen detectio n - 02/13/20 05:47 FLU RESULT NEGATIVE FOR INFLUENZA A AND B ANTIGENS BY IA NRG PROCALCITONIN (PCT) - 02/13/20 06:27 PROCALCITONIN (PCT) 0.07 ng/mL <0.10 Blood lactic acid measurement (moles/vol ume) - 02/13/20 06:27 Blood lactic acid measurement (moles/volume) 0.97 mmol/L 0.50-2.00 Ammonia - 02/13/20 06:27 Ammonia 18 umol/L 11-32 Serum or plasma C reactive protein measu rement (mass/volume) - 02/13/20 06:27 Serum or plasma C reactive protein measurement (mass/v olume) 4.99 mg/dL 0.00-0.50 Bacterial blood culture - 02/13/20 06:27 Bacterial blood culture NG NRG Fibrin D-dimer FEU measurement in platel et poor plasma (mass/volume) - 04/10/20 06:34 Fibrin D-dimer FEU measurement in platelet poor plasma (mass/volume) 1.12 ug/mL 0.00-0.49 Bacterial blood culture - 02/13/20 06:34 Bacterial blood culture NG NRG Bacterial blood culture - 02/13/20 06:40 Bacterial blood culture NG NRG Complete urinalysis with reflex to cultu re - 02/13/20 08:47 Urine color determination YELLOW NRG Urine clarity determination SL CLOUDY N RG Urine pH measurement by test strip 8.5 5-9 Specific gravity of urine by test strip 1.020 1.016-1.022 Urine protein assay by test strip, semi-quantitative NEGATIVE NEGATIVE Urine glucose detection by automated test strip NE GATIVE NEGATIVE Erythrocytes detection in urine sediment by light micr oscopy 2+ NEGATIVE Urine ketones detection by automated test strip TR EBONY NEGATIVE Urine nitrite detection by test strip NEGATIVE NEGATIVE Urine total bilirubin detection by test strip NEGA TIVE NEGATIVE Urine urobilinogen measurement by automated test strip (mass/volume) 1.0 mg/dL < = 1.0 Urine leukocyte esterase detection by dipstick NEG ATIVE NEGATIVE Automated urine sediment erythrocyte cou nt by microscopy (number/high power field) [HPF] NRG Automated urine sediment leukocyte count by [...] d white blood cell (WBC) differential - 02/14/20 02:50 Blood leukocytes automated count (number/volume) 13.3 10*3/uL 4.3-11.0 Blood erythrocytes automated count (number/volume) 3.74 10*6/uL 4.35-5.85 Venous blood hemoglobin measurement (mass/volume) 12.2 g/dL 13.3-17.7 Blood hematocrit (volume fraction) 38 % 40-54 Automated erythrocyte mean corpuscular volume 101 [foz_us] 80-99 Automated erythrocyte mean corpuscular h emoglobin (mass per erythrocyte) 33 pg 25-34 Automated erythrocyte mean corpuscular h emoglobin concentration measurement (mass/volume) 32 g/dL 32-36 Automated erythrocyte distribution width ratio 14. 4 % 10.0- 14.5 Automated blood platelet count (count/volume) 184 10*3/uL 130-400 Automated blood platelet mean volume measurement 9.7 [foz_us] 7.4-10.4 Automated blood neutrophils/100 leukocytes 83 % 42-75 Automated blood lymphocytes/100 leukocytes 9 % 12-44 Blood monocytes/100 leukocytes 7 % 0-12 Automated blood eosinophils/100 leukocytes 1 % 0-10 Automated blood basophils/100 leukocytes 0 % 0-10 Blood neutrophils automated count (number/volume) 11.1 10*3 1.8-7.8 Blood lymphocytes automated count (number/volume) 1.2 10*3 1.0-4.0 Blood monocytes automated count (number/volume) 0. 9 10*3 0.0-1.0 Automated eosinophil count 0.1 10*3/uL 0 .0-0.3 Automated blood basophil count (count/volume) 0.0 10*3/uL 0.0-0.1 Whole blood basic metabolic panel - 02/03 11/24 02:50 Serum or plasma sodium measurement (moles/volume) 136 mmol/L 135-145 Serum or plasma potassium measurement (moles/volume) 4.1 mmol/L 3.6-5.0 Serum or plasma chloride measurement (moles/volume) 106 mmol/L 98-107 Carbon dioxide 23 mmol/L 21-32 Serum or plasma anion gap determination (moles/volume) 7 mmol/L 5-14 Serum or plasma urea nitrogen measurement (mass/volume ) 5 mg/dL 7-18 Serum or plasma creatinine measurement (mass/volume) 0.73 mg/dL 0.60-1.30 Serum or plasma urea nitrogen/creatinine mass ratio 7 NRG Serum or plasma creatinine measurement w ith calculation of estimated glomerular filtration rate > NRG Serum or plasma glucose measurement (mass/volume) 105 mg/dL 70-105 Serum or plasma calcium measurement (mass/volume) 7.6 mg/dL 8.5-10.1 Serum or plasma phosphate measurement (m ass/volume) - 02/14/20 02:50 Serum or plasma phosphate measurement (mass/volume) 2.0 mg/dL 2.3-4.7 Magnesium - 02/14/20 02:50 Magnesium 2.1 mg/dL 1.6-2.4 Complete blood count (CBC) with automate d white blood cell (WBC) differential - 02/15/20 03:29 Blood leukocytes automated count (number/volume) 9.4 10*3/uL 4.3-11.0 Blood erythrocytes automated count (number/volume) 3.73 10*6/uL 4.35-5.85 Venous blood hemoglobin measurement (mass/volume) 12.0 g/dL 13.3-17.7 Blood hematocrit (volume fraction) 38 % 40-54 Automated erythrocyte mean corpuscular volume 101 [foz_us] 80-99 Automated erythrocyte mean corpuscular h emoglobin (mass per erythrocyte) 32 pg 25-34 Automated erythrocyte mean corpuscular h emoglobin concentration measurement (mass/volume) 32 g/dL 32-36 Automated erythrocyte distribution width ratio 14. 4 % 10.0- 14.5 Automated blood platelet count (count/volume) 162 10*3/uL 130-400 Automated blood platelet mean volume measurement 10.6 [foz_us] 7.4-10.4 Automated blood neutrophils/100 leukocytes 76 % 42-75 Automated blood lymphocytes/100 leukocytes 12 % 12-44 Blood monocytes/100 leukocytes 9 % 0-12 Automated blood eosinophils/100 leukocytes 3 % 0-10 Automated blood basophils/100 leukocytes 0 % 0-10 Blood neutrophils automated count (number/volume) 7.1 10*3 1.8-7.8 Blood lymphocytes automated count (number/volume) 1.2 10*3 1.0-4.0 Blood monocytes automated count (number/volume) 0. 8 10*3 0.0-1.0 Automated eosinophil count 0.3 10*3/uL 0 .0-0.3 Automated blood basophil count (count/volume) 0.0 10*3/uL 0.0-0.1 Whole blood basic metabolic panel - 02/03 12/25 03:29 Serum or plasma sodium measurement (moles/volume) 137 mmol/L 135-145 Serum or plasma potassium measurement (moles/volume) 4.1 mmol/L 3.6-5.0 Serum or plasma chloride measurement (moles/volume) 106 mmol/L 98-107 Carbon dioxide 21 mmol/L 21-32 Serum or plasma anion gap determination (moles/volume) 10 mmol/L 5-14 Serum or plasma urea nitrogen measurement (mass/volume ) 5 mg/dL 7-18 Serum or plasma creatinine measurement (mass/volume) 0.75 mg/dL 0.60-1.30 Serum or plasma urea nitrogen/creatinine mass ratio 7 NRG Serum or plasma creatinine measurement w ith calculation of estimated glomerular filtration rate > NRG Serum or plasma glucose measurement (mass/volume) 116 mg/dL 70-105 Serum or plasma calcium measurement (mass/volume) 8.1 mg/dL 8.5-10.1 Serum or plasma phosphate measurement (m ass/volume) - 02/15/20 03:29 Serum or plasma phosphate measurement (mass/volume) 1.6 mg/dL 2.3-4.7 Magnesium - 02/15/20 03:29 Magnesium 1.7 mg/dL 1.6-2.4 Encounters ACCT No. Visit Date/Time Discharge Status Pt. Type Provider Facility Loc./Unit Complaint [id number] 01/21/2020 10:00:00 01/21/2020 23:59: 59 CLS Outpatient SELF, EJ Ziegler [facility] [id number] 11/27/2019 13:40:00 Document Registration [id number] 09/24/2019 10:30:00 Document Registration [id number] 09/11/2019 09:40:00 Document Registration [id number] 04/25/2019 09:30:00 Document Registration [id number] 02/12/2020 21:00:00 15:00:00 DIS Inpatient SANJAY REDD DO, V [facility] 4TH ALCOHOL WITHDRAWAL [id number] 02/05/2020 10:13:00 12:33:00 DIS Outpatient EVI SWAN, NIDIA Mckeon [facility] ER HEADACHE [id number] 02/03/2020 20:30:00 18:10:00 DIS Inpatient ROMULO SWAN, MAGALI Finch [facility] 4TH BLOOD PRESSURE [id number] 01/21/2020 01:51:00 03:10:00 DIS Emergency ADARSH SWAN, JANEY Lu [facility] ER FS VOMITING BLOOD [id number] 09/11/2019 12:20:00 23:59:59 CLS Outpatient EJ LUI MD [facility] RAD FS ACUTE NONINTRACTABLE HE ADACHE [id number] 09/04/2019 15:03:00 23:59:59 CLS Outpatient SELF EJ SWAN [facility] LAB FS R50.9 [id number] 02/24/2020 15:11:[address] Emergency TUNG PACHECO DO [facility] ER FS VOMITING,HEADACHE,BODY ACHES
[2020-02-24 17:40] VITALS: BP 140/97
== END 2020-02-24 17:40 | disposition home or self-care (01) ==
LOC: EDUNIT# 15:09 → ER FS 15:11
DX: E86.0 Dehydration (principal); R11.2 Nausea with vomiting, unspecified; E87.6 Hypokalemia; J44.9 Chronic obstructive pulmonary disease, unspecified; F10.20 Alcohol dependence, uncomplicated; F17.210 Nicotine dependence, cigarettes, uncomplicated; Z79.899 Other long term (current) drug therapy
CPT/HCPCS: 36415; 80053; 80320; 83690; 85025

== ENCOUNTER 2020-03-09 17:53 | Emergency (ER) | payer MEDICARE ==
[~2020-03-09] VITALS: Ht 182 cm; Wt 63.9 kg
[~2020-03-09 17:53] MED LIST changes: +ONDA4TAB11 PO; +POTA-51 PO
--- NOTE | 2020-03-09 18:23 | ED GI ---
General Chief Complaint: Abdominal/GI Problems Stated Complaint: SUICIDAL Nursing Triage Note: Started having nausea and vomiting 2 days ago. States is unable to keep down food or fluids but has still been urinating. Headache started 2 days ago as well. Last drink of alcohol (whiskey) was 3 hours ago, but cannot remember how much he has had to drink today. 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 Sepsis Screen: No Definite Risk Source of Information: Patient Exam Limitations: No Limitations History of Present Illness Date Seen by Provider: March 09, 2020 Time Seen by Provider: 18:15 Initial Comments Presents w 2 days of nausea and abdominal pain. Hx of alcoholism. Also c/o intermittent diarrhea. Abdominal pain is cramping in nature and diffuse, not- localized. Allergies and Home Medications Allergies Coded Allergies: No Known Drug Allergies (Unverified , 01/21/20) Home Medications Apixaban 5 Mg Tablet, 5 MG PO BID Prescribed by: GHADA CARRILLO on 02/16/20 1039 Buspirone HCl 10 Mg Tablet, 20 MG PO BID, (Reported) TAKES 2 (10MG) TABS TWICE DAILY Clonazepam 1 Mg Tablet, 0.5-1 MG PO BID PRN for ANXIETY, (Reported) Famotidine 20 Mg Tablet, 20 MG PO BID Prescribed by: STEVEN GUSMAN on 03/09/201902 Metoprolol Succinate 100 Mg Tab.er.24h, 100 MG PO DAILY Prescribed by: GHADA CARRILLO on 02/16/20 1039 Ondansetron 4 Mg Tab.rapdis, 4 MG PO Q6H PRN for NAUSEA/VOMITING Prescribed by: TARA RUBY on 02/24/201651 Ondansetron 4 Mg Tab.rapdis, 4 MG PO TID Prescribed by: STEVEN GUSMAN on 03/09/201902 Pantoprazole Sodium 40 Mg Tablet.dr, 40 MG PO DAILY, (Reported) Potassium Chloride 20 Meq Tablet.er, 20 MEQ PO DAILY Prescribed by: TARA RUBY on 02/24/201651 Venlafaxine HCl 150 Mg Cap.er.24h, 150 MG PO DAILY, (Reported) Patient Home Medication List Home Medication List Reviewed: Yes Review of Systems Review of Systems Constitutional: No chills, No diaphoresis, No dizziness, No fever; malaise, weakness EENTM: No Symptoms Reported Respiratory: Denies Cough, Denies Shortness of Air Cardiovascular: Denies Chest Pain, Denies Edema, Denies Lightheadedness, Denies Palpitations, Denies Syncope Gastrointestinal: Abdominal Pain, Diarrhea, Nausea, Poor Appetite; Denies Rectal Bleeding; Vomiting Genitourinary: Denies Burning, Denies Frequency Musculoskeletal: No back pain, No joint pain Skin: No change in color, No change in hair/nails Psychiatric/Neurological: Other (Denies SI) Past Rtcblhq-Tzfhtk-Cxikof Hx Past Med/Social Hx: Reviewed Nursing Past Med/Soc Hx Patient Social History Alcohol Beverage of Choice: Whiskey Type Used: Cigarettes 2nd Hand Smoke Exposure: Yes Recent Foreign Travel: No Contact w/Someone Who Travel: No Recent Infectious Disease Expo: No Recent Hopitalizations: Yes (Discharged 02/04/20 (rule out COVID-19)) Seasonal Allergies Seasonal Allergies: No Past Medical History Surgeries: No Respiratory: Yes COPD Cardiac: Yes Neurological: No Genitourinary: No Gastrointestinal: No Musculoskeletal: No Endocrine: No HEENT: No Cancer: No Psychosocial: Yes (Alcoholic, no permanent residence) Integumentary: No Physical Exam Vital Signs Vital Signs - First Documented 03/09/20 18:03 Temp 36.8 Pulse 118 Resp 16 B/P (MAP) 102/64 (77) Pulse Ox 95 Capillary Refill : Less Than 3 Seconds Height/Weight/BMI Height: '" Weight: lbs. oz. kg; 19.00 BMI Method: General Appearance: no apparent distress, cachetic HEENT: PERRL/EOMI, TMs normal, pharynx normal Neck: non-tender Respiratory: lungs clear, no respiratory distress Cardiovascular: no edema, no gallop, tachycardia Gastrointestinal: normal bowel sounds, soft, no organomegaly, no pulsatile mass; No guarding, No rebound; tenderness (diffuse, no peritoneal sx) Extremities: normal range of motion, non-tender, no pedal edema, no calf tenderness Neurologic/Psychiatric: alert, normal mood/affect, oriented x 3 Skin: normal color, warm/dry Exam Comments extremity exam - discovered pint of whiskey in his sweat pants (pt trying to keep concealed Focused Exam Lactate Level 03/09/20 18:42: Lactic Acid Level 2.27*H Lactic Acid Level Laboratory Tests Test 03/09/20 18:42 Lactic Acid Level 2.27 MMOL/L (0.50-2.00) *H Progress/Results/Core Measures Results/Orders Lab Results Laboratory Tests Test 03/09/20 18:23 03/09/20 18:42 Range/Units White Blood Count 8.2 4.3-11.0 10^3/uL Red Blood Count 3.80 L 4.35-5.85 10^6/uL Hemoglobin 12.5 L 13.3-17.7 G/DL Hematocrit 38 L 40-54 % Mean Corpuscular Volume 101 H 80-99 FL Mean Corpuscular Hemoglobin 33 25-34 PG Mean Corpuscular Hemoglobin Concent 33 32-36 G/DL Red Cell Distribution Width 16.0 H 10.0-14.5 % Platelet Count 311 130-400 10^3/uL Mean Platelet Volume 8.8 7.4-10.4 FL Neutrophils (%) (Auto) 58 42-75 % Lymphocytes (%) (Auto) 23 12-44 % Monocytes (%) (Auto) 12 0-12 % Eosinophils (%) (Auto) 5 0-10 % Basophils (%) (Auto) 1 0-10 % Neutrophils # (Auto) 4.8 1.8-7.8 X 10^3 Lymphocytes # (Auto) 1.9 1.0-4.0 X 10^3 Monocytes # (Auto) 1.0 0.0-1.0 X 10^3 Eosinophils # (Auto) 0.4 H 0.0-0.3 10^3/uL Basophils # (Auto) 0.1 0.0-0.1 10^3/uL Sodium Level 145 135-145 MMOL/L Potassium Level 3.8 3.6-5.0 MMOL/L Chloride Level 105 98-107 MMOL/L Carbon Dioxide Level 25 21-32 MMOL/L Anion Gap 15 H 5-14 MMOL/L Blood Urea Nitrogen 8 7-18 MG/DL Creatinine 0.62 0.60-1.30 MG/DL Estimat Glomerular Filtration Rate > 60 BUN/Creatinine Ratio 13 Glucose Level 74 70-105 MG/DL Calcium Level 9.0 8.5-10.1 MG/DL Corrected Calcium 9.2 8.5-10.1 MG/DL Total Bilirubin 0.3 0.1-1.0 MG/DL Aspartate Amino Transf (AST/SGOT) 13 5-34 U/L Alanine Aminotransferase (ALT/SGPT) 13 0-55 U/L Alkaline Phosphatase 47 40-136 U/L Troponin I < 0.30 <0.30 NG/ML Total Protein 6.2 L 6.4-8.2 GM/DL Albumin 3.7 3.2-4.5 GM/DL Lipase 47 8-78 U/L Serum Alcohol 217 H <10 MG/DL Lactic Acid Level 2.27 *H 0.50-2.00 MMOL/L My Orders Orders - ROVENSTINE L DO Ed Iv/Invasive Line Start (03/09/20 18:15) Cbc With Automated Diff (03/09/20 18:15) Comprehensive Metabolic Panel (03/09/20 18:15) Lipase (03/09/20 18:15) Lactic Acid Analyzer (03/09/20 18:15) Troponin I Fs (03/09/20 18:15) Acute Abd Series (03/09/20 18:15) Ns Iv 1000 Ml (Sodium Chloride 0.9%) (03/09/20 18:30) Ondansetron Injection (Zofran Injectio (03/09/20 18:30) Alcohol (03/09/20 18:16) Lorazepam Injection (Ativan Injection) (03/09/20 19:00) Medications Given in ED Current Medications Medications Dose Ordered Sig/Glory Route Start Time Stop Time Status Last Admin Dose Admin Lorazepam 1 mg ONCE ONCE IVP 03/09/20 19:00 03/09/20 19:01 DC 03/09/20 19:00 1 MG Ondansetron HCl 4 mg ONCE ONCE IVP 03/09/20 18:30 03/09/20 18:31 DC 03/09/20 18:28 4 MG Vital Signs/I&O 03/09/20 03/09/20 18:03 19:16 Temp 36.8 Pulse 118 95 Resp 16 18 B/P (MAP) 102/64 (77) 97/59 Pulse Ox 95 100 Blood Pressure Mean: 77 Diagnostic Imaging Comments IMPRESSION: 1. Moderate stool in the colon. No bowel obstruction is seen. 2. No acute pulmonary abnormality is seen. 3. 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 Dictated by: Dictated on workstation # [id number] Dict: 03/09/20 184 Trans: 03/09/201945 [id number] [id number] Interpreted by: VICK NAQVI MD Electronically signed by: VICK NAQVI MD 03/09/201945 Departure Impression Primary Impression: Nausea and vomiting Qualified Codes: R11.2 - Nausea with vomiting, unspecified Additional Impressions: Abdominal pain Qualified Codes: R10.84 - Generalized abdominal pain Alcoholism /alcohol abuse Disposition: HOME, SELF-CARE Condition: Improved Departure-Patient Inst. Decision time for Depature: 19:01 Referrals: EJ BELTRAN MD (PCP/Family) Primary Care Physician Patient Instructions: Alcohol Abuse and Alcoholism (DC) Add. Discharge Instructions: Call Dr Beltran tomorrow to arrange for a follow up appointment in 2 to 3 days. Return to the ER sooner if your symptoms progress. All discharge instructions reviewed with patient and/or family. Voiced understanding. Scripts Famotidine (Pepcid) 20 Mg Tablet 20 MG PO BID, #30 TAB Prov: STEVEN GUSMAN DO 03/09/20 Ondansetron (Ondansetron Odt) 4 Mg Tab.rapdis 4 MG PO TID for Nausea, #10 TAB Prov: STEVEN GUSMAN DO 03/09/20 STEVEN GUSMAN DO March 09, 2020 18:23
[2020-03-09 18:29] LABS: WHITE BLOOD COUNT 8.2 10^3/uL (4.3-11.0)
[2020-03-09 18:30] LABS: BASOPHILS % (AUTO) 1 % (0-10); EOSINOPHILS % (AUTO) 5 % (0-10); HEMATOCRIT 38 % (40-54); HEMOGLOBIN 12.5 G/DL (13.3-17.7); LYMPHOCYTES % (AUTO) 23 % (12-44); MEAN CORPUSCULAR HEMOGLOBIN 33 PG (25-34); MEAN CORPUSCULAR HGB CONC 33 G/DL (32-36); MEAN CORPUSCULAR VOLUME 101 FL (80-99); MEAN PLATELET VOLUME 8.8 FL (7.4-10.4); MONOCYTES % (AUTO) 12 % (0-12); NEUTROPHILS % (AUTO) 58 % (42-75); PLATELET COUNT 311 10^3/uL (130-400)
[2020-03-09] MEDS ORDERED: NS IV 1000 ML 1,000 ML IV SCH (18:30)
[2020-03-09] MEDS ORDERED: ONDANSETRON 4 MG/2 ML (SDV) Z0FRAN IVP ONE (18:30)
[2020-03-09 18:31] LABS: BASOPHILS # (AUTO) 0.1 10^3/uL (0.0-0.1); EOSINOPHILS # (AUTO) 0.4 10^3/uL (0.0-0.3); LYMPHOCYTES # (AUTO) 1.9 X 10^3 (1.0-4.0); NEUTROPHILS # (AUTO) 4.8 X 10^3 (1.8-7.8)
--- NOTE | 2020-03-09 18:47 | Diagnostic Imaging Report ---
HISTORY: Abdominal pain. Alcoholism. COMPARISON: 02/03/2020. FINDINGS: Lung volumes are normal. No focal consolidation is seen. There is no pleural effusion or pneumothorax. The cardiac silhouette is normal in size and contour. There appear to be old rib fractures bilaterally. There is an old left clavicular deformity. Bowel loops are nondistended without obstruction. There is moderate stool in the colon. No large collection of free air is seen. There is severe chronic deformity of the left hip with osteonecrosis and subluxation. This appears unchanged since the prior exam. IMPRESSION: 1. Moderate stool in the colon. No bowel obstruction is seen. 2. No acute pulmonary abnormality is seen. 3. 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 Dictated by: Dictated on workstation # [id number]
[2020-03-09 18:53] LABS: BUN/CREATININE RATIO 13; CARBON DIOXIDE 25 MMOL/L (21-32); CHLORIDE 105 MMOL/L (98-107); CREATININE SERUM 0.62 MG/DL (0.60-1.30); GFR ESTIMATED > 60; GLUCOSE 74 MG/DL (70-105); POTASSIUM 3.8 MMOL/L (3.6-5.0); SODIUM 145 MMOL/L (135-145)
[2020-03-09 18:54] LABS: ALANINE AMINOTRANSFERASE 13 U/L (0-55); ALBUMIN 3.7 GM/DL (3.2-4.5); ALKALINE PHOSPHATASE 47 U/L (40-136); BILIRUBIN,TOTAL 0.3 MG/DL (0.1-1.0); LIPASE 47 U/L (8-78); TOTAL PROTEIN 6.2 GM/DL (6.4-8.2)
[2020-03-09] MEDS ORDERED: LORazepam INJ 2 MG/ML (ATIVAN) VIAL IVP ONE (19:00)
[2020-03-09] MEDS ORDERED: ONDA4TAB11 PO (19:03)
[2020-03-09] MEDS ORDERED: FAMO-119 PO (19:03)
[2020-03-09 19:16] VITALS: BP 97/59
--- OUTSIDE RECORDS SUMMARY | 2020-03-09 20:51 | XMS REPORT | Continuity of Care Document ---
Author Organization Unknown Address Unknown Phone Unavailable Allergies Active Description Code Type Severity Reaction Onset Reported/Identified Relationship to Patient Clinical Status Yes No Known Drug Allergies [id number] Drug Allergy Unknown N/A 01/21/2020 Medications There [...] LEVEL OF 240 MG/100 ML OR 01/23/2020 AJNEY ALTAMIRANO MD Ot F10.10 ALCOHOL ABUSE, UNCOMPLICATED [...] J44.9 CHRONIC OBSTRUCTIVE PULMONARY DISEASE, U 02/12/2020 EVI SWAN, NIDIA Mckeon Ot R11.2 NAUSEA WITH VOMITING, UNSPECIFIED 02/12/2020 NIDIA STEVE MD Ot R51 HEADACHE 02/12/2020 EVI SWAN, NIDIA Mckeon Ot E87.6 HYPOKALEMIA 02/12/2020 NIDIA STEVE MD Ot F17.210 NICOTINE DEPENDENCE, CIGARETTES, UNCOMPL 02/12/2020 EVI SWAN, NIDIA Mckeon Ot J44.9 CHRONIC OBSTRUCTIVE PULMONARY DISEASE, U 02/12/2020 NIDIA STEVE MD Ot R11.2 NAUSEA WITH VOMITING, UNSPECIFIED 02/12/2020 NIDIA STEVE MD Ot R51 HEADACHE 02/16/2020 IVANIA HALL, SANJAY Ot D72.82 9 ELEVATED WHITE BLOOD CELL COUNT, UNSPECI 02/16/2020 IVANIA HALL SANJAY Ot E87.6 HYPOKALEMIA 02/16/2020 IVANIA HALL, SANJAY Ot F10.23 1 ALCOHOL DEPENDENCE WITH WITHDRAWAL DELIR 02/16/2020 REDD DO, SANJAY Ot F17.21 0 NICOTINE DEPENDENCE, CIGARETTES, UNCOMPL 02/16/2020 REDD DO, SANJAY Ot F41.9 ANXIETY DISORDER, UNSPECIFIED 02/16/2020 REDD DO, SANJAY Ot H54.7 UNSPECIFIED VISUAL LOSS 02/16/2020 REDD DO, SANJAY Ot I48.92 UNSPECIFIED ATRIAL FLUTTER 02/16/2020 IVANIA HALL SANJAY Ot J44.9 CHRONIC OBSTRUCTIVE PULMONARY DISEASE, U 02/16/2020 IVANIA DO, SANJAY Ot K29.70 GASTRITIS, UNSPECIFIED, WITHOUT BLEEDING 02/16/2020 IVANIA DO, SANJAY Ot R11.2 NAUSEA WITH VOMITING, UNSPECIFIED 02/16/2020 IVANIA HALL SANJAY Ot Z59.0 HOMELESSNESS 02/16/2020 IVANIA HALL SANJAY Ot Z79.01 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 0 DEHYDRATION 02/25/2020 TUNG PACHECO DO Ot E87. 6 HYPOKALEMIA 02/25/2020 TARA DO TUNG B Ot F10. 20 ALCOHOL DEPENDENCE, UNCOMPLICATED 02/25/2020 TARA TUNG HALL Ot F17.210 NICOTINE DEPENDENCE, CIGARETTES, UNCOMPL 02/25/2020 TARA TUNG HALL Ot J44. 9 CHRONIC OBSTRUCTIVE PULMONARY DISEASE, U 02/25/2020 TARA TUNG HALL Ot R11. 2 NAUSEA WITH VOMITING, UNSPECIFIED 02/25/2020 TARA DO TUNG B Ot Z79.899 OTHER USP (CURRENT) DRUG THERAPY Procedures There is no data. Results Test [...] in platel et poor plasma (mass/volume) - 02/13/20 06:34 Fibrin D-dimer FEU measurement in platelet [...] - 02/15/20 03:29 Magnesium 1.7 mg/dL 1.6-2.4 Complete blood count (CBC) with automate d white blood cell (WBC) differential - 02/24/20 16:07 Blood leukocytes automated count (number/volume) 9.1 10*3/uL 4.3-11.0 Blood erythrocytes automated count (number/volume) 4.11 10*6/uL 4.35-5.85 Venous blood hemoglobin measurement (mass/volume) 13.4 g/dL 13.3-17.7 Blood hematocrit (volume fraction) 40 % 40-54 Automated erythrocyte mean corpuscular volume 97 [ foz_us] 80-99 Automated erythrocyte mean corpuscular h emoglobin (mass per erythrocyte) 33 pg 25-34 Automated erythrocyte mean corpuscular h emoglobin concentration measurement (mass/volume) 34 g/dL 32-36 Automated erythrocyte distribution width ratio 14. 5 % 10.0- 14.5 Automated blood platelet count (count/volume) 346 10*3/uL 130-400 Automated blood platelet mean volume measurement 9.4 [foz_us] 7.4-10.4 Automated blood neutrophils/100 leukocytes 65 % 42-75 Automated blood lymphocytes/100 leukocytes 21 % 12-44 Blood monocytes/100 leukocytes 12 % 0-12 Automated blood eosinophils/100 leukocytes 1 % 0-10 Automated blood basophils/100 leukocytes 1 % 0-10 Blood neutrophils automated count (number/volume) 5.9 10*3 1.8-7.8 Blood lymphocytes automated count (number/volume) 2.0 10*3 1.0-4.0 Blood monocytes automated count (number/volume) 1. 1 10*3 0.0-1.0 Automated eosinophil count 0.1 10*3/uL 0 .0-0.3 Automated blood basophil count (count/volume) 0.1 10*3/uL 0.0-0.1 Comprehensive metabolic panel - 02/24/20 16:07 Serum or plasma sodium measurement (moles/volume) 131 mmol/L 135-145 Serum or plasma potassium measurement (moles/volume) 3.3 mmol/L 3.6-5.0 Serum or plasma chloride measurement (moles/volume) 93 mmol/L 98-107 Carbon dioxide 22 mmol/L 21-32 Serum or plasma anion gap determination (moles/volume) 16 mmol/L 5-14 Serum or plasma urea nitrogen measurement (mass/volume ) 2 mg/dL 7-18 Serum or plasma creatinine measurement (mass/volume) 0.70 mg/dL 0.60-1.30 Serum or plasma urea nitrogen/creatinine mass ratio 3 NRG Serum or plasma creatinine measurement w ith calculation of estimated glomerular filtration rate > NRG Serum or plasma glucose measurement (mass/volume) 116 mg/dL 70-105 Serum or plasma calcium measurement (mass/volume) 8.7 mg/dL 8.5-10.1 Serum or plasma total bilirubin measurement (mass/volu me) 0.7 mg/dL 0.1-1.0 Serum or plasma alkaline phosphatase guevara surement (enzymatic activity/volume) 58 U/L 40-136 Serum or plasma aspartate aminotransfera se measurement (enzymatic activity/volume) 38 U/L 5-34 Serum or plasma alanine aminotransferase measurement (enzymatic activity/volume) 57 U/L 0-55 Serum or plasma protein measurement (mass/volume) 6.4 g/dL 6.4-8.2 Serum or plasma albumin measurement (mass/volume) 3.7 g/dL 3.2-4.5 CALCIUM CORRECTED 8.9 mg/dL 8.5-10.1 Lipase - 02/24/20 16:07 Lipase 30 U/L 8-78 Serum or plasma ethanol measurement (mas s/volume) - 02/24/20 16:07 Serum or plasma ethanol measurement (mass/volume) < mg/dL <10 Encounters ACCT No. Visit Date/Time Discharge Status Pt. Type Provider Facility Loc./Unit Complaint [id number] 01/21/2020 10:00:00 01/21/2020 23:59: 59 CLS Outpatient SELF, EJ Ziegler [facility] [id number] 11/27/2019 13:40:00 Document Registration [id number] 09/24/2019 10:30:00 Document Registration [id number] 09/11/2019 09:40:00 Document Registration [id number] 04/25/2019 09:30:00 Document Registration [id number] 02/24/2020 15:11:00 17:40:00 DIS Outpatient TUNG PACHECO DO [facility] ER FS VOMITING,HEADACHE,BODY ACHES [id number] 02/12/2020 21:00:00 15:00:00 DIS Inpatient SANJAY REDD DO, [facility] 4TH ALCOHOL WITHDRAWAL [id number] 02/05/2020 10:13:00 12:33:00 DIS Emergency EVI SWAN, NIDIA Mckeon [facility] ER HEADACHE [id number] 02/03/2020 20:30:00 18:10:00 DIS Inpatient ROMULO SWAN, MAGALI Finch [facility] 4TH BLOOD PRESSURE [id number] 01/21/2020 01:51:00 03:10:00 DIS Emergency JANEY ALTAMIRANO MD [facility] ER FS VOMITING BLOOD [id number] 09/11/2019 12:20:00 23:59:59 CLS Outpatient SELF EJ SWAN [facility] RAD FS ACUTE NONINTRACTABLE HE ADACHE [id number] 09/04/2019 15:03:00 23:59:59 CLS Outpatient SELF EJ WSAN [facility] LAB FS R50.9
== END 2020-03-09 19:16 | disposition home or self-care (01) ==
LOC: EDUNIT# 17:53 → ER FS 17:54
DX: R11.2 Nausea with vomiting, unspecified (principal); R10.84 Generalized abdominal pain; F10.20 Alcohol dependence, uncomplicated; Z79.01 Long term (current) use of anticoagulants; Z77.22 Contact with and (suspected) exposure to environmental tobacco smoke (acute) (chronic); Y90.7 Blood alcohol level of 200-239 mg/100 ml
CPT/HCPCS: 36415; 74022; 80053; 80320; 83605; 83690; 84484; 85025

== ENCOUNTER 2020-12-25 00:31 | Emergency (ER) | payer MEDICARE ==
[~2020-12-25] VITALS: Ht 182.8 cm; Wt 66.2 kg
[~2020-12-25 00:31] MED LIST changes: -PANT40TA3 PO; +PANT40TA52 PO
[2020-12-25] MEDS ORDERED: cloNIDine 0.1 MG (CATAPRES) TAB PO ONE (01:00)
[2020-12-25] MEDS ORDERED: ACETAMINOPHEN 325 MG TABLET PO ONE (01:00)
--- NOTE | 2020-12-25 01:42 | ED Headache ---
General Chief Complaint: Head/Cervical Problems Stated Complaint: HEADACHE Nursing Triage Note: pt in per [facility] for MOYA. pt in [facility] earlier on Sunday unknown how long, pt released and recalls drinking a pint of whiskey. Unknown who brought him back to [facility] this evening. Nursing Sepsis Screen: No Definite Risk Source: patient Exam Limitations: intoxication, other History of Present Illness Date Seen by Provider: Dec 25, 2020 Time Seen by Provider: 00:30 Initial Comments Patient is a 60-year-old male with history of hypertension who presents with chronic pain and headache. Patient was released from [facility] earlier today and went home and drank a large amount of alcohol. He was then dropped off back at the [facility] this evening but was brought by an unknown male to the emergency department. Patient denies fall or injury. He is sleeping in the room and smells strongly of EtOH intoxicants. He upon waking, patient states he is in severe pain. Patient noted to be hypertensive 160s over 100s. He is not compliant with medications. He states he currently has nowhere to stay and is homeless. Timing/Duration: 1-3 hours Severity/Quality: mild Location: global Prior Headaches/Recent Trauma: no recent headache/trauma Associated Symptoms: denies symptoms Allergies and Home Medications Allergies Coded Allergies: No Known Drug Allergies (Unverified , 01/21/20) Home Medications Apixaban 5 Mg Tablet, 5 MG PO BID Prescribed by: GHADA CARRILLO on 02/16/20 103 Buspirone HCl 10 Mg Tablet, 20 MG PO BID, (Reported) TAKES 2 (10MG) TABS TWICE DAILY Clonazepam 1 Mg Tablet, 0.5-1 MG PO BID PRN for ANXIETY, (Reported) Famotidine 20 Mg Tablet, 20 MG PO BID Prescribed by: STEVEN GUSMAN on 03/09/201902 Metoprolol Succinate 100 Mg Tab.er.24h, 100 MG PO DAILY Prescribed by: GHADA CARRILLO on 02/16/20 103 Ondansetron 4 Mg Tab.rapdis, 4 MG PO Q6H PRN for NAUSEA/VOMITING Prescribed by: TARA RUBY on 02/24/20 165 Ondansetron 4 Mg Tab.rapdis, 4 MG PO TID Prescribed by: STEVEN GUSMAN on 03/09/201902 Pantoprazole Sodium 40 Mg Tablet.dr, 40 MG PO DAILY, (Reported) Potassium Chloride 20 Meq Tablet.er, 20 MEQ PO DAILY Prescribed by: TARA RUBY on 02/24/20 1652 Venlafaxine HCl 150 Mg Cap.er.24h, 150 MG PO DAILY, (Reported) Patient Home Medication List Home Medication List Reviewed: Yes Review of Systems Review of Systems Constitutional: see HPI Eyes: See HPI Ears, Nose, Mouth, Throat: see HPI Respiratory: see HPI Cardiovascular: see HPI Gastrointestinal: see HPI Genitourinary: see HPI Musculoskeletal: see HPI Skin: see HPI Psychiatric/Neurological: See HPI All Other Systems Reviewed Negative Unless Noted: Yes Past Kiwnita-Rrxuoe-[place]rb[place] Hx Past Med/Social Hx: Reviewed Nursing Past Med/Soc Hx Patient Social History Alcohol Use: Regular Use Number of Drinks Today: GG Alcohol Beverage of Choice: Whiskey Type Used: Cigarettes 2nd Hand Smoke Exposure: Yes Recent Infectious Disease Expo: No Recent Hopitalizations: Yes (Discharged 02/04/20 (rule out COVID-19)) Seasonal Allergies Seasonal Allergies: No Past Medical History Surgeries: No Respiratory: Yes COPD Cardiac: Yes Neurological: No Genitourinary: No Gastrointestinal: No Musculoskeletal: No Endocrine: No HEENT: No Cancer: No Psychosocial: Yes (Alcoholic, no permanent residence) Integumentary: No Physical Exam Vital Signs Vital Signs - First Documented 12/25/20 12/25/20 00:31 01:08 Temp 36.3 Pulse 61 Resp 14 B/P (MAP) 168/85 (112) Pulse Ox 97 O2 Delivery Room Air Capillary Refill : Less Than 3 Seconds Height, Weight, BMI Height: '" Weight: lbs. oz. kg; 19.00 BMI Method: General Appearance: other (SMELLS OF etoH INTOXICANTS) HEENT: normal ENT inspection, other (CONJUNCTIVAE INJECTED) Neck: non-tender Cardiovascular: normal peripheral pulses, regular rate, rhythm Respiratory: lungs clear Gastrointestinal: normal bowel sounds, non tender, soft Extremities: normal range of motion, non-tender, normal inspection Psychiatric: alert, other Motor/Sensory: no motor deficit, no pronator drift Lymphatic: no adenopathy Progress/Results/Core Measures Results/Orders My Orders Orders - BARBARA GUZMAN DO Clonidine Tablet (Catapres Tablet) (12/25/20 01:00) Acetaminophen Tablet/Caplet (Tylenol T (12/25/20 01:00) Medications Given in ED Current Medications Medications Dose Ordered Sig/Glory Route Start Time Stop Time Status Last Admin Dose Admin Acetaminophen 650 mg ONCE ONCE PO 12/25/20 01:00 12/25/20 01:01 DC 12/25/20 01:08 650 MG Clonidine HCl 0.1 mg ONCE ONCE PO 12/25/20 01:00 12/25/20 01:01 DC 12/25/20 01:07 0.1 MG Vital Signs/I&O 12/25/20 12/25/20 00:31 01:08 Temp 36.3 36.4 Pulse 61 67 Resp 14 16 B/P (MAP) 168/85 (112) 156/85 (108) Pulse Ox 97 O2 Delivery Room Air Room Air Blood Pressure Mean: 108 Departure Communication (Admissions) Tylenol and clonidine given for headache and blood pressure. Patient is sleeping in the emergency department and is apparently attempting to use it as a jail. Patient will be discharged home to custody of her friends or to the lobby. Impression Primary Impression: Malingering Disposition: HOME, SELF-CARE Condition: Stable Departure-Patient Inst. Decision time for Depature: 01:47 Referrals: SELF,EJ SWAN (PCP/Family) Primary Care Physician Add. Discharge Instructions: Please abstain from alcohol and follow-up with local primary care provider in outpatient alcohol rehab. All discharge instructions reviewed with patient and/or family. Voiced un derstanding. BARBARA GUZMAN DO Dec 25, 2020 01:42
[2020-12-25 02:52] VITALS: BP 115/61
== END 2020-12-25 02:36 | disposition home or self-care (01) ==
LOC: EDUNIT# 00:31 → ER FS 00:35
DX: Z76.5 Malingerer [conscious simulation] (principal); Z77.22 Contact with and (suspected) exposure to environmental tobacco smoke (acute) (chronic); Z79.01 Long term (current) use of anticoagulants
CPT/HCPCS: 99283

== ENCOUNTER 2021-12-12 13:51 | Emergency (ER) | payer MEDICARE ==
[~2021-12-12] VITALS: Ht 182.8 cm; Wt 58.2 kg
[2021-12-12 13:56] VITALS: BP 96/64
[2021-12-12] MEDS ORDERED: CEPHALEXIN 250 MG (KEFLEX) CAP PO STA (14:07)
[2021-12-12] MEDS ORDERED: DOXYCYCLINE 100 MG (VIBRAMYCIN) TABLET PO STA (14:07)
--- NOTE | 2021-12-12 14:25 | Diagnostic Imaging Report ---
INDICATION: Right foot pain, osteomyelitis. COMPARISON: None available. TECHNIQUE: Three radiographs of the right foot dated 12/12/2021. FINDINGS: Small calcifications are identified immediately superior to the talar neck. No additional fracture or dislocation. No destructive osseous process. Lisfranc joint is well aligned. Mild scattered degenerative changes, greatest involving the first MTP joint and within the midfoot. Pes planus deformity is noted. No evidence of tarsal coalition. No suspicious radiopaque foreign body. IMPRESSION: Small calcifications superior to the talar neck. This may relate to an age-indeterminate tiny avulsion fracture from the talar neck. Alternatively, this may simply relate to dystrophic overlying soft tissue calcifications. Recommend correlation for focal pain in this location. Scattered degenerative changes with associated pes planus deformity. If there remains clinical concern for underlying osteomyelitis, then follow-up radiographs in 10-14 days should be considered. Alternatively, MRI with and without contrast could be considered. Dictated by: Dictated on workstation # [id number]
--- NOTE | 2021-12-12 14:41 | ED Lower Extremity ---
General Chief Complaint: Lower Extremity Stated Complaint: RT FOOT PAIN Source: patient, family Exam Limitations: no limitations History of Present Illness Date Seen by Provider: Dec 12, 2021 Time Seen by Provider: 13:55 Initial Comments 61-year-old male with past medical history of GERD and depression coming in due to right foot pain.'s been going on for the past 7 to 10 days. He says it severe, constant, throbbing, worse when he walks on it, better with rest. Never had pain like this prior to that. Denies any exposure to cold weather for extended periods of time. Denies any trauma. He is otherwise denying any chest pain, shortness of breath, abdominal pain, nausea, vomiting, diarrhea, fever, chills, weakness, numbness, rash, or any other concerns. Allergies and Home Medications Allergies Coded Allergies: No Known Drug Allergies (Unverified , 01/21/20) Patient Home Medication List Home Medication List Reviewed: Yes Apixaban (Eliquis) 5 Mg Tablet, 5 MG PO BID Prescribed by: GHADA CARRILLO on 02/16/20 103 Buspirone HCl (Buspirone HCl) 10 Mg Tablet, 20 MG PO BID, (Reported) Entered as Reported by: RADHA WALSH on 02/13/20925 Cephalexin (Cephalexin) 500 Mg Tablet, 500 MG PO TID Prescribed by: GALINA CHRISTOPHER on 12/12/21 144 Clonazepam (Clonazepam) 1 Mg Tablet, 0.5-1 MG PO BID PRN for ANXIETY, (Reported) Entered as Reported by: RADHA WALSH on 02/13/20 09 Doxycycline Hyclate (Doxycycline Hyclate) 100 Mg Tablet, 100 MG PO BID Prescribed by: GALINA CHRISTOPHER on 12/12/21 144 Famotidine (Pepcid) 20 Mg Tablet, 20 MG PO BID Prescribed by: STEVEN GUSMAN on 03/09/20 190 Hydrocodone Bit/Acetaminophen (HYDROcodone/APAP 5 MG/325 MG TAB) 1 Tab Tab, 1 TAB PO Q6H Prescribed by: GALINA CHRISTOPHER on 12/12/21 1447 Metoprolol Succinate (Metoprolol Succinate) 100 Mg Tab.er.24h, 100 MG PO DAILY Prescribed by: GHADA CARRILLO on 02/16/20 1039 Ondansetron (Ondansetron Odt) 4 Mg Tab.rapdis, 4 MG PO Q6H PRN for NAUSEA/VOMITING Prescribed by: TARA RUBY on 02/24/201651 Ondansetron (Ondansetron Odt) 4 Mg Tab.rapdis, 4 MG PO TID Prescribed by: STEVEN GUSMAN on 03/09/20 190 Pantoprazole Sodium (Pantoprazole Sodium) 40 Mg Tablet.dr, 40 MG PO DAILY, (Reported) Entered as Reported by: RADHA WALSH on 02/13/20925 Potassium Chloride (Potassium Chloride) 20 Meq Tablet.er, 20 MEQ PO DAILY Prescribed by: TARA RUBY on 02/24/201651 Venlafaxine HCl (Venlafaxine HCl ER) 150 Mg Cap.er.24h, 150 MG PO DAILY, (Reported) Entered as Reported by: RADHA WALSH on 02/13/20925 Review of Systems Constitutional: No chills, No fever EENTM: No blurred vision Respiratory: No cough, No short of breath Cardiovascular: No chest pain Gastrointestinal: No abdominal pain, No diarrhea, No nausea, No vomiting Genitourinary: no symptoms reported Musculoskeletal: joint pain Skin: no symptoms reported Psychiatric/Neurological: No Symptoms Reported All Other Systems Reviewed Negative Unless Noted: Yes Past Icluani-Lnbzrl-Mcimtm Hx Patient Social History Tobacco Use?: Yes Seasonal Allergies Seasonal Allergies: No Past Medical History Surgeries: Yes Orthopedic Respiratory: Yes COPD Cardiac: Yes Neurological: No Genitourinary: No Gastrointestinal: No Musculoskeletal: No Endocrine: No HEENT: No Cancer: No Psychosocial: Yes (Alcoholic, 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 oz. kg; 19.00 BMI Method: General Appearance: WD/WN, no apparent distress HEENT: PERRL/EOMI, normal ENT inspection, pharynx normal Neck: non-tender, full range of motion, supple, normal inspection Cardiovascular: regular rate, rhythm, no edema, no murmur Respiratory: chest non-tender, lungs clear, normal breath sounds, no respiratory distress, no accessory muscle use Gastrointestinal: normal bowel sounds, non tender, soft; No guarding, No rebound Back: normal inspection, no CVA tenderness Hips: bilateral hip non-tender, bilateral hip normal inspection, bilateral hip normal range of motion, bilateral hip no evidence of injury Legs: bilateral leg non-tender, bilateral leg normal inspection, bilateral leg normal range of motion, bilateral leg no evidence of injury Knees: bilateral knee non-tender, bilateral knee normal inspection, bilateral knee normal range of motion, bilateral knee no evidence of injury Ankles: bilateral ankle non-tender, bilateral ankle normal inspection, bilateral ankle normal range of motion, bilateral ankle no evidence of injury Feet: right foot bone tenderness, right foot swelling, right foot other (Right foot with redness and swelling on the dorsal aspect, there is some dark almost bruising/appears to be dry gangrene forming on his distal toes, he has 2+ DP and PT pulses and the limb does not look ischemic with good capillary refill as well) Neurologic/Tendon: normal sensation, normal motor functions Neurologic/Psychiatric: no motor/sensory deficits, alert, normal mood/affect Skin: normal color, warm/dry Lymphatic: no adenopathy Progress/Results/Core Measures Results/Orders Lab Results Laboratory Tests Test 12/12/21 14:24 Range/Units White Blood Count 7.1 4.3-11.0 10^3/uL Red Blood Count 3.98 L 4.30-5.52 10^6/uL Hemoglobin 12.4 L 13.3-17.7 g/dL Hematocrit 38 L 40-54 % Mean Corpuscular Volume 95 80-99 fL Mean Corpuscular Hemoglobin 31 25-34 pg Mean Corpuscular Hemoglobin Concent 33 32-36 g/dL Red Cell Distribution Width 13.3 10.0-14.5 % Platelet Count 205 130-400 10^3/uL Mean Platelet Volume 10.3 9.0-12.2 fL Immature Granulocyte % (Auto) 0 % Neutrophils (%) (Auto) 50 42-75 % Lymphocytes (%) (Auto) 29 12-44 % Monocytes (%) (Auto) 13 H 0-12 % Eosinophils (%) (Auto) 7 0-10 % Basophils (%) (Auto) 0 0-10 % Neutrophils # (Auto) 3.6 1.8-7.8 10^3/uL Lymphocytes # (Auto) 2.1 1.0-4.0 10^3/uL Monocytes # (Auto) 0.9 0.0-1.0 10^3/uL Eosinophils # (Auto) 0.5 H 0.0-0.3 10^3/uL Basophils # (Auto) 0.0 0.0-0.1 10^3/uL Immature Granulocyte # (Auto) 0.0 0.0-0.1 10^3/uL Erythrocyte Sedimentation Rate 10 0-30 MM/HR Prothrombin Time 14.3 12.2-14.7 SEC INR Comment 1.1 0.8-1.4 Activated Partial Thromboplast Time 28 24-35 SEC Sodium Level 139 135-145 MMOL/L Potassium Level 3.3 L 3.6-5.0 MMOL/L Chloride Level 102 98-107 MMOL/L Carbon Dioxide Level 26 21-32 MMOL/L Anion Gap 11 5-14 MMOL/L Blood Urea Nitrogen 18 7-18 MG/DL Creatinine 0.86 0.60-1.30 MG/DL Estimat Glomerular Filtration Rate 99 BUN/Creatinine Ratio 21 Glucose Level 164 H 70-105 MG/DL Calcium Level 8.7 8.5-10.1 MG/DL Corrected Calcium 9.2 8.5-10.1 MG/DL Total Bilirubin 0.2 0.1-1.0 MG/DL Aspartate Amino Transf (AST/SGOT) 46 H 5-34 U/L Alanine Aminotransferase (ALT/SGPT) 19 0-55 U/L Alkaline Phosphatase 49 40-136 U/L C-Reactive Protein 1.42 H <0.50 MG/DL Total Protein 5.8 L 6.4-8.2 GM/DL Albumin 3.4 3.2-4.5 GM/DL My Orders Orders - GALINA CHRISTOPHER MD Cbc With Automated Diff (12/12/21 14:07) Comprehensive Metabolic Panel (12/12/21 14:07) Erythrocyte Sedimentation Rate (12/12/21 14:07) Protime With Inr (12/12/21 14:07) Partial Thromboplastin Time (12/12/21 14:07) Crp Fs (12/12/21 14:07) Foot 3 View Right (12/12/21 14:07) Doxycycline Hyclate Tablet (Vibramycin T (12/12/21 14:07) Cephalexin Capsule (Keflex Capsule) (12/12/21 14:07) Progress Progress Note : Progress Note 61-year-old male with above history coming in due to right foot pain. ABCs were intact and vitals were stable on presentation. Differential includes gangrene versus rainouts versus frostbite versus some other etiology, less likely vascular given normal pulses. Physical exam with some dark toes that appears like dry gangrene to me but he does also have some redness and swelling on the dorsal aspect of his foot concerning for cellulitis. Given doxycycline as well as Keflex for this. X-ray ordered to evaluate for osteomyelitis which does not show any obvious evidence of this. He does have good distal pulses and capillary refill in his limb does not appear ischemic to me. Because of this, I believe he is stable for outpatient follow-up with vascular surgery for further evaluation. White blood cell count normal, ESR normal, CRP just barely elevated which all point away from a more systemic infection. I believe he is stable for discharge with outpatient follow-up. He was sent home with strict return precautions. I did discuss that if this is gangrene, his toes will auto amputate, and often there is nothing surgical in the immediate, but I do want him to follow-up as soon as possible with vascular surgery. Departure Impression Primary Impression: Gangrene Additional Impressions: Foot pain Qualified Codes: M79.671 - Pain in right foot Cellulitis Qualified Codes: L03.115 - Cellulitis of right lower limb Disposition: 01 HOME, SELF-CARE Condition: Stable Departure-Patient Inst. Decision time for Depature: 15:26 Referrals: SELF,EJ SWAN (PCP/Family) Primary Care Physician Patient Instructions: Cellulitis (Skin Infection), Adult ED, Gangrene (DC) Add. Discharge Instructions: I want you to follow-up with a vascular surgeon up at . Please call the [email or web address] and schedule an appointment as soon as possible. Typically the toes will continue to get black and sometimes the pain will go away. I recommend naproxen and Tylenol for pain control. I do want you to take an antibiotic for the next 10 days as well which should help with the redness and swelling on the top of the foot. If you begin developing fevers, the redness or swelling starts coming up the foot significantly, or you have any other concerns and please come back to the ER. Vascular Surgery [phone] Scripts Cephalexin (Cephalexin) 500 Mg Tablet 500 MG PO TID for 10 Days, #30 TAB Prov: GALINA CHRISTOPHER MD 12/12/21 Doxycycline Hyclate (Doxycycline Hyclate) 100 Mg Tablet 100 MG PO BID for 10 Days, #20 TAB 0 Refills Prov: GALINA CHRISTOPHER MD 12/12/21 Hydrocodone Bit/Acetaminophen (HYDROcodone/APAP 5 MG/325 MG TAB) 1 Tab Tab 1 TAB PO Q6H for Pain for 3 Days, #12 TAB 0 Refills Prov: GALINA CHRISTOPHER MD 12/12/21 GALINA CHRISTOPHER MD Dec 12, 2021 14:41
[2021-12-12 14:46] LABS: BASOPHILS % (AUTO) 0 % (0-10); EOSINOPHILS # (AUTO) 0.5 10^3/uL (0.0-0.3); EOSINOPHILS % (AUTO) 7 % (0-10); HEMATOCRIT 38 % (40-54); HEMOGLOBIN 12.4 g/dL (13.3-17.7); LYMPHOCYTES # (AUTO) 2.1 10^3/uL (1.0-4.0); LYMPHOCYTES % (AUTO) 29 % (12-44); MEAN CORPUSCULAR HEMOGLOBIN 31 pg (25-34); MEAN CORPUSCULAR HGB CONC 33 g/dL (32-36); MEAN CORPUSCULAR VOLUME 95 fL (80-99); MEAN PLATELET VOLUME 10.3 fL (9.0-12.2); MONOCYTES # (AUTO) 0.9 10^3/uL (0.0-1.0); MONOCYTES % (AUTO) 13 % (0-12); NEUTROPHILS # (AUTO) 3.6 10^3/uL (1.8-7.8); NEUTROPHILS % (AUTO) 50 % (42-75); PLATELET COUNT 205 10^3/uL (130-400); WHITE BLOOD COUNT 7.1 10^3/uL (4.3-11.0)
[2021-12-12] MEDS ORDERED: ACHD5005 PO (14:46)
[2021-12-12] MEDS ORDERED: CEPH500T PO (14:46)
[2021-12-12] MEDS ORDERED: DOXY100T2 PO (14:46)
[2021-12-12 14:55] LABS: INR 1.1 (0.8-1.4); PROTHROMBIN TIME PATIENT 14.3 SEC (12.2-14.7)
[2021-12-12 15:00] LABS: ERYTHROCYTE SEDIMENTATION RATE 10 MM/HR (0-30)
[2021-12-12 15:05] LABS: ALBUMIN 3.4 GM/DL (3.2-4.5); BILIRUBIN,TOTAL 0.2 MG/DL (0.1-1.0); CALCIUM 8.7 MG/DL (8.5-10.1); CREATININE SERUM 0.86 MG/DL (0.60-1.30); POTASSIUM 3.3 MMOL/L (3.6-5.0); TOTAL PROTEIN 5.8 GM/DL (6.4-8.2)
== END 2021-12-12 15:56 | disposition home or self-care (01) ==
LOC: EDUNIT# 13:51 → ER FS 13:53
DX: L03.115 Cellulitis of right lower limb (principal); I96 Gangrene, not elsewhere classified; J44.9 Chronic obstructive pulmonary disease, unspecified; K21.9 Gastro-esophageal reflux disease without esophagitis; F32.A Depression, unspecified; Z79.899 Other long term (current) drug therapy
CPT/HCPCS: 36415; 73630; 80053; 85025; 85610; 85652; 85730; 86141

== ENCOUNTER 2023-04-13 15:31 | Inpatient (IN) | payer MEDICARE, MEDICAID ==
[~2023-04-13] VITALS: Ht 182.9 cm; Wt 63.8 kg
[~2023-04-13 15:31] MED LIST changes: +ACHD5005 PO; +CEPH500T PO; +DOXY100T2 PO; +POTA-330 PO; -POTA-51 PO
--- NOTE | 2023-04-13 15:40 | ED General ---
General Chief Complaint: Abdominal/GI Problems Stated Complaint: VOMITING History of Present Illness Date Seen by Provider: Apr 13, 2023 Time Seen by Provider: 15:38 Initial Comments 62-year-old male with PMH of alcoholic/fibromyalgia/disc degeneration, is here with complaints of alcohol withdrawal, with symptoms of nausea and vomiting, headache, chills, abdominal discomfort, and overall anxiety and tremors which have all started soon after he stopped drinking. Patient drinks 1 L of whiskey every single day, and he has not drank anything at all for the past 2 days. Patient states that he has been in rehab/detox multiple times without any success. Patient states that he is not interested in going to rehab for detox. Patient states that if he was able to go to the liquor store he would have continued drinking. Denies fever, shortness of breath, cough, diarrhea. Allergies and Home Medications Allergies Coded Allergies: No Known Drug Allergies (Unverified , 01/21/20) Patient Home Medication List Home Medication List Reviewed: Yes Apixaban (Eliquis) 5 Mg Tablet, 5 MG PO BID Prescribed by: GHADA CARRILLO on 02/16/20 1039 Buspirone HCl (Buspirone HCl) 10 Mg Tablet, 20 MG PO BID, (Reported) Entered as Reported by: RADHA WALSH on 02/13/20925 Cephalexin (Cephalexin) 500 Mg Tablet, 500 MG PO TID Prescribed by: GALINA CHRISTOPHER on 12/12/21 144 Clonazepam (Clonazepam) 1 Mg Tablet, 0.5-1 MG PO BID PRN for ANXIETY, (Reported) Entered as Reported by: RADHA WALSH on 02/13/20925 Doxycycline Hyclate (Doxycycline Hyclate) 100 Mg Tablet, 100 MG PO BID Prescribed by: GALINA CHRISTOPHER on 12/12/21 144 Famotidine (Pepcid) 20 Mg Tablet, 20 MG PO BID Prescribed by: STEVEN GUSMAN on 03/09/20 190 Hydrocodone Bit/Acetaminophen (HYDROcodone/APAP 5 MG/325 MG TAB) 1 Tab Tab, 1 TAB PO Q6H Prescribed by: GALINA CHRISTOPHER on 12/12/21 144 Metoprolol Succinate (Metoprolol Succinate) 100 Mg Tab.er.24h, 100 MG PO DAILY Prescribed by: GHADA CARRILLO on 02/16/20 1039 Ondansetron (Ondansetron Odt) 4 Mg Tab.rapdis, 4 MG PO Q6H PRN for NAUSEA/VOMITING Prescribed by: TARA RUBY on 02/24/201651 Ondansetron (Ondansetron Odt) 4 Mg Tab.rapdis, 4 MG PO TID Prescribed by: STEVEN GUSMAN on 03/09/20 190 Pantoprazole Sodium (Pantoprazole Sodium) 40 Mg Tablet.dr, 40 MG PO DAILY, (Reported) Entered as Reported by: RADHA WLASH on 02/13/20925 Potassium Chloride (Potassium Chloride) 20 Meq Tablet.er, 20 MEQ PO DAILY Prescribed by: TARA RBUY on 02/24/201651 Venlafaxine HCl (Venlafaxine HCl ER) 150 Mg Cap.er.24h, 150 MG PO DAILY, (Reported) Entered as Reported by: RADHA WALSH on 02/13/20925 Review of Systems Review of Systems Constitutional: no symptoms reported EENTM: no symptoms reported Respiratory: no symptoms reported Cardiovascular: chest pain Gastrointestinal: loss of appetite, nausea, vomiting Skin: no symptoms reported Psychiatric/Neurological: See HPI, Anxiety, Tremors Hematologic/Lymphatic: No Symptoms Reported Immunological/Allergic: no symptoms reported Past Fcktdgs-Uvdwjn-Xneeeq Hx Seasonal Allergies Seasonal Allergies: No Past Medical History Surgeries: Yes Orthopedic Respiratory: Yes COPD Cardiac: Yes Neurological: No Genitourinary: No Gastrointestinal: No Musculoskeletal: No Endocrine: No HEENT: No Cancer: No Psychosocial: Yes (Alcoholic, no permanent residence) Integumentary: No Physical Exam Vital Signs Vital Signs - First Documented 04/13/23 15:42 Temp 36.7 Pulse 84 Resp 18 B/P (MAP) 183/119 (140) Pulse Ox 96 O2 Delivery Room Air Capillary Refill : Height, Weight, BMI Height: '" Weight: lbs. oz. 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 as Tested, Other (Hand tremors present) Skin: Normal Color Focused Exam Lactate Level 04/13/23 15:41: Lactic Acid Level 4.18*H Lactic Acid Level Laboratory Tests Test 04/13/23 15:41 Lactic Acid Level 4.18 MMOL/L (0.50-2.00) *H Progress/Results/Core Measures Suspected Sepsis SIRS Temperature: Pulse: Respiratory Rate: Laboratory Tests 04/13/23 15:41: White Blood Count 20.6H Blood Pressure / Mean: 04/13/23 15:41: Lactic Acid Level 4.18*H Laboratory Tests 04/13/23 15:41: Creatinine 0.95, Platelet Count 318, Total Bilirubin 1.3H Results/Orders Lab Results Laboratory Tests Test 04/13/23 15:41 Range/Units White Blood Count 20.6 H 4.3-11.0 10^3/uL Red Blood Count 5.73 H 4.30-5.52 10^6/uL Hemoglobin 18.8 H 13.3-17.7 g/dL Hematocrit 55 H 40-54 % Mean Corpuscular Volume 96 80-99 fL Mean Corpuscular Hemoglobin 33 25-34 pg Mean Corpuscular Hemoglobin Concent 34 32-36 g/dL Red Cell Distribution Width 14.9 H 10.0-14.5 % Platelet Count 318 130-400 10^3/uL Mean Platelet Volume 9.6 9.0-12.2 fL Immature Granulocyte % (Auto) 0 % Neutrophils (%) (Auto) 48 42-75 % Lymphocytes (%) (Auto) 5 L 12-44 % Monocytes (%) (Auto) 9 0-12 % Eosinophils (%) (Auto) 38 H 0-10 % Basophils (%) (Auto) 0 0-10 % Neutrophils # (Auto) 9.8 H 1.8-7.8 10^3/uL Lymphocytes # (Auto) 1.0 1.0-4.0 10^3/uL Monocytes # (Auto) 1.9 H 0.0-1.0 10^3/uL Eosinophils # (Auto) 7.8 H 0.0-0.3 10^3/uL Basophils # (Auto) 0.1 0.0-0.1 10^3/uL Immature Granulocyte # (Auto) 0.1 0.0-0.1 10^3/uL Neutrophils % (Manual) 85 % Lymphocytes % (Manual) 6 % Monocytes % (Manual) 9 % Sodium Level 130 L 135-145 MMOL/L Potassium Level 5.9 H 3.6-5.0 MMOL/L Chloride Level 90 L 98-107 MMOL/L Carbon Dioxide Level 24 21-32 MMOL/L Anion Gap 16 H 5-14 MMOL/L Blood Urea Nitrogen 15 7-18 MG/DL Creatinine 0.95 0.60-1.30 MG/DL Estimat Glomerular Filtration Rate 91 BUN/Creatinine Ratio 16 Glucose Level 195 H 70-105 MG/DL Lactic Acid Level 4.18 *H 0.50-2.00 MMOL/L Calcium Level 9.3 8.5-10.1 MG/DL Corrected Calcium 9.7 8.5-10.1 MG/DL Magnesium Level 1.4 L 1.6-2.4 MG/DL Total Bilirubin 1.3 H 0.1-1.0 MG/DL Aspartate Amino Transf (AST/SGOT) 68 H 5-34 U/L Alanine Aminotransferase (ALT/SGPT) 31 0-55 U/L Alkaline Phosphatase 84 40-136 U/L Troponin I 0.32 *H <0.30 NG/ML Total Protein 7.2 6.4-8.2 GM/DL Albumin 3.5 3.2-4.5 GM/DL Lipase 29 8-78 U/L Serum Alcohol < 10 <10 MG/DL My Orders Orders - FERNANDO LESLIE MD Alcohol (04/13/23 15:41) Cbc With Automated Diff (04/13/23 15:41) Comprehensive Metabolic Panel (04/13/23 15:41) Drug Screen Stat (Urine) (04/13/23 15:41) Lactic Acid Analyzer (04/13/23 15:41) Magnesium (04/13/23 15:41) Ua Culture If Indicated (04/13/23 15:41) Troponin I Fs (04/13/23 15:41) Chest 1 View Ap/Pa Only (04/13/23 15:41) Ekg Tracing (04/13/23 15:42) Continuous Ekg Monitoring (04/13/23 15:42) Lipase (04/13/23 15:42) Ondansetron Injection (Zofran Injectio (04/13/23 15:45) Ed Iv/Invasive Line Start (04/13/23 15:54) Ns Iv 1000 Ml (Sodium Chloride 0.9%) (04/13/23 16:00) Manual Differential (04/13/23 15:41) Thiamine Injection (Vitamin B-1 Injectio (04/13/23 16:09) Folic Acid Tablet (Folic Acid Tablet) (04/13/23 16:15) Magnesium 1 Gm/100 Ml Ivpb (Magnesium Jarrett (04/13/23 16:15) Insulin (Regular) Human (Novolin R (Per (04/13/23 16:17) D50w (Emergency) Syringe (Dextrose 50% 5 (04/13/23 16:17) Blood Culture (04/13/23 16:20) Cefepime Injection (Maxipime Injection) (04/13/23 16:30) Aspirin Chewable Tablet (Baby Aspirin Ch (04/13/23 16:22) Metoclopramide Injection (Reglan Injecti (04/13/23 17:15) Lorazepam Injection (Ativan Injection) (04/13/23 17:15) Accucheck Achs Q1HR (04/13/23 17:06) Accucheck Stat ONCE (04/13/23 17:07) Ed Admission (Communication) (04/13/23 17:22) Medications Given in ED Current Medications Medications Dose Ordered Sig/Glory Route Start Time Stop Time Status Last Admin Dose Admin Cefepime HCl 1000 mg/Sodium Chloride 50 ml @ 100 mls/hr ONCE ONCE IV 04/13/23 16:30 04/13/23 16:59 DC 04/13/23 16:51 100 MLS/HR Folic Acid 1 mg ONCE ONCE PO 04/13/23 16:15 04/13/23 16:16 DC 04/13/23 16:29 1 MG Lorazepam 1 mg ONCE ONCE IVP 04/13/23 17:15 04/13/23 17:16 DC 04/13/23 17:10 1 MG Metoclopramide HCl 10 mg ONCE ONCE IVP 04/13/23 17:15 04/13/23 17:16 DC 04/13/23 17:10 10 MG Ondansetron HCl 4 mg ONCE ONCE IVP 04/13/23 15:45 04/13/23 15:46 DC 04/13/23 15:53 4 MG Vital Signs/I&O 04/13/23 15:42 Temp 36.7 Pulse 84 Resp 18 B/P (MAP) 183/119 (140) Pulse Ox 96 O2 Delivery Room Air Capillary Refill : Progress Note : Progress Note 1. ALCOHOL WITHDRAWAL WITH ELECTROLYTE DISTURBANCES: - CXR: no acute findings - CBC: WBC of 20.6 with a left shift - Lactic acid is elevated: 4.18 - s. ETOH: <10 - UDS/ UA: pt has not given a urine sample -Blood culture sent - NS IVF bolus STAT - Thiamine iv STAT/ Folic acid tab - Zofran 4mg iv ,then Reglan 10mg iv given - Ativan 1mg iv STAT, with Ativan watch Q2H - CIWA score: 26 -Cefepime 1 g IV stat, since lactic acid and WBC is elevated. Both are elevated most likely due to the alcohol withdrawal, however since patient did not give a urine sample, will give 1 dose of the antibiotic in case of source being discovered later. Also the lactic acid may be elevated due to dehydration as well. - Will need admission to ICU. Accepted for admission by hospitalist. (A) HYPONATREMIA; - s. NA is 130 - NS IVF bolus STAT (B) HYPERKALEMIA: - s. K is 5.9 - Troponin/ EKG:non-ischemic - Insulin 5mg iv and D50 STAT with fingerstick check in 30 min and 1 hour (C) HYPOMAGNESEMIA: - s.Mg is 1.4 - Mag sulfate 2gm iv STAT ECG Initial ECG Impression Date: Apr 13, 2023 Initial ECG Impression Time: 16:09 Initial ECG Rate: 93 Initial ECG Rhythm: Normal Sinus Initial ECG Intervals Occasional PVCs on EKG and also on the monitor Initial ECG Comparisson: No Previous ECG Available Diagnostic Imaging Diagonstic Imaging: Xray Plain Films/CT/US/NM/MRI: chest Departure Communication (Admissions) Time/Spoke to Admitting Phy: 17:20 Discussed with hospitalist, Dr. Salamanca, and will admit to ICU Impression Primary Impression: Alcohol withdrawal Qualified Codes: F10.939 - Alcohol use, unspecified with withdrawal, unspecified Additional Impressions: Alcohol addiction Qualified Codes: F10.239 - Alcohol dependence with withdrawal, unspecified Electrolyte abnormality Hyponatremia Hypomagnesemia Disposition: 30 STILL A PATIENT Condition: Stable/Unchanged Admissions Decision to Admit Reason: Admit from ER (General) Decision to Admit/Date: Apr 13, 2023 Time/Decision to Admit Time: 16:30 Transfer Method of Transfer: EMS Departure-Patient Inst. Referrals: EJ LUI MD (PCP) Primary Care Physician FERNANDO LESLEI MD Apr 13, 2023 15:40
[2023-04-13] MEDS ORDERED: ONDANSETRON 4 MG/2 ML (SDV) Z0FRAN IVP ONE (15:45)
[2023-04-13 15:54] LABS: BASOPHILS # (AUTO) 0.1 10^3/uL (0.0-0.1); BASOPHILS % (AUTO) 0 % (0-10); EOSINOPHILS # (AUTO) 7.8 10^3/uL (0.0-0.3); EOSINOPHILS % (AUTO) 38 % (0-10); HEMATOCRIT 55 % (40-54); HEMOGLOBIN 18.8 g/dL (13.3-17.7); LYMPHOCYTES % (AUTO) 5 % (12-44); MEAN CORPUSCULAR HEMOGLOBIN 33 pg (25-34); MEAN CORPUSCULAR HGB CONC 34 g/dL (32-36); MEAN CORPUSCULAR VOLUME 96 fL (80-99); MEAN PLATELET VOLUME 9.6 fL (9.0-12.2); MONOCYTES # (AUTO) 1.9 10^3/uL (0.0-1.0); MONOCYTES % (AUTO) 9 % (0-12); NEUTROPHILS # (AUTO) 9.8 10^3/uL (1.8-7.8); NEUTROPHILS % (AUTO) 48 % (42-75); PLATELET COUNT 318 10^3/uL (130-400); WHITE BLOOD COUNT 20.6 10^3/uL (4.3-11.0)
[2023-04-13] MEDS ORDERED: NS IV 1000 ML 1,000 ML IV SCH ×2 (16:00→17:30)
[2023-04-13] MEDS ORDERED: THIAMINE INJECTION 100 MG in NS (IVPB) 50 ML IV STA (16:09)
--- NOTE | 2023-04-13 16:09 | Diagnostic Imaging Report ---
Indication: Chest pain Portable chest 3:55 PM There are emphysematous changes in the lungs. Heart size and pulmonary vascularity are normal. There are no infiltrates, effusions or pneumothoraces. There are old bilateral rib fractures. IMPRESSION: COPD. No acute abnormalities seen. Dictated by: Dictated on workstation # [id number]
[2023-04-13 16:10] LABS: ALANINE AMINOTRANSFERASE 31 U/L (0-55); ALBUMIN 3.5 GM/DL (3.2-4.5); ALKALINE PHOSPHATASE 84 U/L (40-136); BILIRUBIN,TOTAL 1.3 MG/DL (0.1-1.0); BUN/CREATININE RATIO 16; CALCIUM 9.3 MG/DL (8.5-10.1); CARBON DIOXIDE 24 MMOL/L (21-32); CHLORIDE 90 MMOL/L (98-107); CREATININE SERUM 0.95 MG/DL (0.60-1.30); GFR ESTIMATED 91; GLUCOSE 195 MG/DL (70-105); LIPASE 29 U/L (8-78); MAGNESIUM 1.4 MG/DL (1.6-2.4); POTASSIUM 5.9 MMOL/L (3.6-5.0); SODIUM 130 MMOL/L (135-145); TOTAL PROTEIN 7.2 GM/DL (6.4-8.2)
[2023-04-13] MEDS ORDERED: FOLIC ACID 1 MG TAB PO ONE (16:15)
[2023-04-13] MEDS ORDERED: MAGNESIUM 1 GM/100 ML IVPB 100 ML IV STA (16:15)
[2023-04-13] MEDS ORDERED: DEXTROSE 50% 50 ML (IMS) SYR IV STA (16:17)
[2023-04-13] MEDS ORDERED: inSUlin (REGULAR) HUMAN 1 UNIT/0.01 ML (CHARGE PER UNIT) IV STA (16:17)
[2023-04-13] MEDS ORDERED: ASPIRIN 81 MG CHEW (CHILDREN'S ASA) PO STA (16:22)
[2023-04-13 16:30] LABS: LYMPHOCYTES % (MANUAL) 6 %; MONOCYTES % (MANUAL) 9 %; NEUTROPHILS % (MANUAL) 85 %
[2023-04-13] MEDS ORDERED: CEFEPIME INJECTION 1,000 MG in NS (IVPB) 50 ML IV ONE (16:30)
[2023-04-13] MEDS ORDERED: METOCLOPRAMIDE INJ 10 MG/2 ML (REGLAN) IVP ONE (17:15)
[2023-04-13] MEDS ORDERED: LORazepam INJ 2 MG/ML (ATIVAN) VIAL IVP ONE (17:15)
[2023-04-13] MEDS ORDERED: SENNA W/DOCUSATE (SENOKOT S) TABLET PO PRN (18:15)
[2023-04-13] MEDS ORDERED: polyethylene glycoL POWDER 17 GM (MIRALAX) PACK PO PRN (18:15)
[2023-04-13] MEDS ORDERED: diphenhydrAMINE 50 MG/ML INJ (BENADRYL) IVP PRN (18:15)
[2023-04-13] MEDS ORDERED: BISACODYL 10 MG SUPP (DULCOLAX) PR PRN (18:15)
[2023-04-13] MEDS ORDERED: ONDANSETRON 4 MG (ZOFRAN) ORAL DISSOLVE TAB SL PRN (18:15)
[2023-04-13] MEDS ORDERED: D5 1/2 NS 1000 ML IV SOLUTION 1,000 ML IV PRN (18:15)
[2023-04-13] MEDS ORDERED: ENOXAPARIN 40 MG/0.4 ML (LOVENOX) SYR SC SCH (18:15)
[2023-04-13] MEDS ORDERED: LORazepam INJ 2 MG/ML (ATIVAN) VIAL IM/IV PRN (18:15)
[2023-04-13] MEDS ORDERED: ANTACID SUSP 30 ML UDC (MYLANTA) PO PRN (18:15)
[2023-04-13] MEDS ORDERED: diphenhydrAMINE 25 MG TAB (BENADRYL) PO PRN (18:15)
[2023-04-13] MEDS ORDERED: ONDANSETRON 4 MG/2 ML (SDV) Z0FRAN IV PRN (18:15)
[2023-04-13] MEDS ORDERED: ONDANSETRON 4 MG (ZOFRAN) ORAL DISSOLVE TAB PO PRN (18:15)
[2023-04-13] MEDS ORDERED: NS IV 500 ML 500 ML IV PRN (18:15)
[2023-04-13] MEDS ORDERED: 1/2 NS IV SOLUTION 1,000 ML IV PRN (18:15)
[2023-04-13] MEDS: ENOXAPARIN INJECTION 30 MG/0.3 ML SYR SC SCH (18:52)
[2023-04-13] MEDS ORDERED: THIAMINE INJECTION 100 MG, FOLIC ACID INJECTION 1 MG, VITAMIN MULTI INJECTION 10 ML, MA... IV SCH ×5 (19:00)
[2023-04-13] MEDS: THIAMINE INJECTION 100 MG, FOLIC ACID INJECTION 1 MG, VITAMIN MULTI INJECTION 10 ML, MA... IV SCH ×5 (20:09)
[2023-04-13] MEDS ORDERED: LABETALOL HCL 20 MG/4 ML VIAL IV PRN (20:15)
[2023-04-13 20:28] VITALS: BP 149/97
[2023-04-13] MEDS ORDERED: RT-ALBUTEROL/IPRATROPIUM 3 ML (DUONEB) VIAL INH PRN (20:30)
--- NOTE | 2023-04-13 20:34 | Tele-ICU Progress Note ---
Progress Note 62M with etoh abuse/dependence, h/o gangrene to the foot 12/2021 admitted for etoh withdrawal and electrolyte disturbances. On presentation he had not had a drink for 2 days due to lack of access to alcohol. He had no desire to stop drinking, and has no interest in maintaining his sobriety. In the ED he was found to have WBC 20.6 for which he was given empiric cefepime. Found to have hyperkalemia 5.9, given hyperkalemia cocktail, not yet repeated. - Hg 18.8: likely hemoconcentration. Has received at least 2L IVF. Will continue IVF, repeat CBC in AM. - leukocytosis: empiric cefepime initiated. Still awaiting UA. - HTN: BP 203/88, HR 104. Will order PRN labetalol for >170. - hyperkalemia: treated with IV Rx in ED. Anticipate significant improvement with hydration alone. Will send repeat now. - hyponatremia: Hypovolemic hyponatremia. D/C 1/2 NS, switch to NS. Repeat BMP pending. Continue IVF. - hypomag: repleted in ED, repeat pending. - etoh: CIWA protocol in place. Thiamine/folate/mvi. - hyperglycemia: sliding scale ordered. Will send A1C Patient assessed via real time audiovisual communication system. CCT 15 min Focused Exam Lactate Level 04/13/23 15:41: Lactic Acid Level 4.18*H Height, Weight, BMI Height: '" Weight: lbs. oz. kg; 18.47 BMI Method: BILLY SYED MD Apr 13, 2023 20:34
[2023-04-13 21:08] LABS: ALANINE AMINOTRANSFERASE 21 U/L (0-55); ALBUMIN 2.6 GM/DL (3.2-4.5); ALKALINE PHOSPHATASE 61 U/L (40-136); BILIRUBIN,TOTAL 0.9 MG/DL (0.1-1.0); BUN/CREATININE RATIO 13; CARBON DIOXIDE 25 MMOL/L (21-32); CHLORIDE 101 MMOL/L (98-107); CREATININE SERUM 0.88 MG/DL (0.60-1.30); GFR ESTIMATED 98; GLUCOSE 127 MG/DL (70-105); MAGNESIUM 1.7 MG/DL (1.6-2.4); PHOSPHORUS 3.5 MG/DL (2.3-4.7); POTASSIUM 3.3 MMOL/L (3.6-5.0); SODIUM 135 MMOL/L (135-145); TOTAL PROTEIN 5.2 GM/DL (6.4-8.2)
[2023-04-13] MEDS: D5 1/2 NS W/KCL 20 MEQ/L 1,000 ML IV SCH (21:22)
[2023-04-13] MEDS: NS IV 1000 ML 1,000 ML IV SCH (21:29)
[2023-04-13] MEDS: DOCUSATE SODIUM 100 MG (COLACE) CAP PO SCH (21:34)
[2023-04-13 21:56] LABS: AMORPHOUS SEDIMENT,UR FEW AMOR PHOSPHATE /LPF; BACTERIA,URINE NEGATIVE /HPF; BILIRUBIN,URINE NEGATIVE (NEGATIVE); CLARITY,URINE CLEAR; COLOR,URINE YELLOW; GLUCOSE, URINE (UA) 1+ (NEGATIVE); HYALINE CASTS, URINE 0-2 /LPF; KETONES,URINE NEGATIVE (NEGATIVE); LEUKOCYTE ESTERASE ,URINE NEGATIVE (NEGATIVE); NITRITE,URINE NEGATIVE (NEGATIVE); PH,URINE 7.5 (5-9); PROTEIN,URINE 3+ (NEGATIVE); RBC,URINE 0-2 /HPF
[2023-04-13 21:58] LABS: AMPHETAMINE SCREEN, URINE NEGATIVE (NEGATIVE); BARBITURATE SCREEN URINE NEGATIVE (NEGATIVE); BENZODIAZEPINES SCREEN URINE NEGATIVE (NEGATIVE); CANNABINOID SCREEN, URINE NEGATIVE (NEGATIVE); COCAINE SCREEN URINE NEGATIVE (NEGATIVE); METHADONE STAT NEGATIVE (NEGATIVE); OPIATE SCREEN URINE NEGATIVE (NEGATIVE); OXYCODONE STAT NEGATIVE (NEGATIVE); PROPOXYPHENE STAT NEGATIVE (NEGATIVE); TRICYCLIC ANTIDEPRESSANTS SCRE NEGATIVE (NEGATIVE)
[2023-04-13] MEDS: ONDANSETRON 4 MG/2 ML (SDV) Z0FRAN IV PRN (22:21)
[2023-04-13] MEDS: HYDROmorphone 2 MG/ML VIAL (DILAUDID) IV PRN (23:25)
[2023-04-13] MEDS: CEFEPIME INJECTION 1,000 MG in NS (IVPB) 50 ML IV SCH (23:26)
[2023-04-13] MEDS ORDERED: LACTATED RINGERS 1,000 ML IV SCH (23:30)
[2023-04-14] MEDS: LABETALOL HCL 20 MG/4 ML VIAL IV PRN ×2 (00:22→03:58)
[2023-04-14] MEDS ORDERED: LABETALOL HCL 20 MG/4 ML VIAL IV PRN (00:30)
[2023-04-14] MEDS ORDERED: amLODIPine 10 MG (NORVASC) TAB PO ONE (00:30)
[2023-04-14] MEDS ORDERED: amLODIPine 10 MG (NORVASC) TAB ONE (00:42)
[2023-04-14] MEDS: D5 1/2 NS W/KCL 20 MEQ/L 1,000 ML IV SCH ×4 (01:27→20:55)
[2023-04-14] MEDS: hydrALAZINE (APESOLINE) 20 MG/ML VIAL IV PRN ×2 (02:11→06:52)
[2023-04-14 03:50] LABS: BASOPHILS % (AUTO) 0 % (0-10); EOSINOPHILS % (AUTO) 0 % (0-10); HEMATOCRIT 55 % (40-54); HEMOGLOBIN 18.4 g/dL (13.3-17.7); LYMPHOCYTES # (AUTO) 0.7 10^3/uL (1.0-4.0); LYMPHOCYTES % (AUTO) 5 % (12-44); MEAN CORPUSCULAR HEMOGLOBIN 33 pg (25-34); MEAN CORPUSCULAR HGB CONC 34 g/dL (32-36); MEAN CORPUSCULAR VOLUME 98 fL (80-99); MEAN PLATELET VOLUME 9.7 fL (9.0-12.2); MONOCYTES # (AUTO) 0.7 10^3/uL (0.0-1.0); MONOCYTES % (AUTO) 5 % (0-12); NEUTROPHILS # (AUTO) 12.1 10^3/uL (1.8-7.8); NEUTROPHILS % (AUTO) 90 % (42-75); PLATELET COUNT 161 10^3/uL (130-400); WHITE BLOOD COUNT 13.5 10^3/uL (4.3-11.0)
[2023-04-14 04:04] LABS: ALBUMIN 3.2 GM/DL (3.2-4.5); POTASSIUM 3.4 MMOL/L (3.6-5.0)
[2023-04-14 04:05] LABS: CALCIUM 8.6 MG/DL (8.5-10.1)
[2023-04-14 04:07] LABS: TOTAL PROTEIN 6.5 GM/DL (6.4-8.2)
[2023-04-14 04:10] LABS: CREATININE SERUM 0.75 MG/DL (0.60-1.30); PHOSPHORUS 3.2 MG/DL (2.3-4.7)
[2023-04-14 04:13] LABS: MAGNESIUM 1.8 MG/DL (1.6-2.4)
[2023-04-14] MEDS: CALCIUM CARBONATE 500 MG (TUMS) TAB.CHEW PO PRN (05:19)
[2023-04-14] MEDS: ONDANSETRON 4 MG/2 ML (SDV) Z0FRAN IV PRN ×2 (05:38→20:43)
[2023-04-14] MEDS: CEFEPIME INJECTION 1,000 MG in NS (IVPB) 50 ML IV SCH ×4 (05:38→23:49)
[2023-04-14] MEDS: MAGNESIUM 1 GM/100 ML IVPB 100 ML IV SCH ×3 (05:38→06:47)
[2023-04-14] MEDS: POTASSIUM CL 10MEQ/50ML IVPB 50 ML IV SCH ×5 (05:39→08:25)
[2023-04-14] MEDS: NS IV 1000 ML 1,000 ML IV SCH ×4 (05:43→18:26)
[2023-04-14] MEDS: KCL 20 MEQ TAB (K-DUR) PO SCH (05:52)
--- NOTE | 2023-04-14 07:18 | History & Physical-Hospitalist ---
History of Present Illness HPI/Chief Complaint Chief complaint: Alcohol withdrawal HPI: This is a 62-year-old male who presented to the [place] ER in alcohol withdrawal. He has been trying to quit alcohol but having difficulty and began having delusions. Currently he will require Precedex for agitation and he is high risk for seizures. Source: patient, RN/MD Exam Limitations: clinical condition Date Seen 04/14/23 Time Seen by a Provider: 11:00 Attending Physician Mitchell Beltran MD PCP Admitting Physician: Jessica Salamanca DO Attending Physician: Jessica Salamanca DO Referring Physician Date of Admission Apr 13, 2023 at 18:13 Home Medications & Allergies Home Medications Reviewed patient Home Medication Reconciliation performed by pharmacy medication reconciliations pharmacy technician per diem and/or nursing. Patients Allergies have been reviewed. Allergies Allergies Coded Allergies No Known Drug Allergies (Unverified01/21/20) Past Afqgzer-Wocveo-Dupjeq Hx Patient Social History Marrital Status: single Tobacco Use?: Yes Tobacco type used: Cigarettes Smoking Status: Current Everyday Smoker Substance use?: No Alcohol Use?: Yes Alcohol type: Hard Liquor Alcohol Frequency: Daily Additional Alcohol Comments: REPORTS 1 LITER OF WHISKEY A DAY Pt feels they are or have been: No Seasonal Allergies Seasonal Allergies: No Current Status Advance Directives: No Communicates: Verbally Primary Language: Tongan Preferred Spoken Language: Tongan Is interpretation needed?: No Sensory deficits: Vision impairment Past Medical History Surgeries: Orthopedic COPD Review of Systems Constitutional: see HPI, dizziness, malaise, weakness Psychiatric/Neurological: Tremors Physical Exam Physical Exam Vital Signs Vital Signs - First Documented 04/13/23 04/13/23 04/14/23 15:42 20:28 08:34 Temp 36.7 Pulse 84 Resp 18 B/P (MAP) 183/119 (140) Pulse Ox 96 O2 Delivery Room Air O2 Flow Rate 0.00 FiO2 21 Capillary Refill : Less Than 3 Seconds Height, Weight, BMI Height: '" Weight: lbs. oz. kg; 18.86 BMI Method: General Appearance: Anxious, Chronically ill, Thin Eyes: Right Eye Normal Inspection, Right Eye PERRL HEENT: PERRL/EOMI, Normal ENT Inspection, Pharynx Normal, Moist Mucous Membranes Neck: Full Range of Motion, Normal Inspection, Non Tender Respiratory: Chest Non Tender, Lungs Clear, Normal Breath Sounds, No Accessory Muscle Use, No Respiratory Distress Cardiovascular: Regular Rate, Rhythm, No Edema, No Gallop, No JVD, No Murmur, Normal Peripheral Pulses Gastrointestinal: Normal Bowel Sounds, No Organomegaly, No Pulsatile Mass, Non Tender, Soft Back: Normal Inspection, No CVA Tenderness, No Vertebral Tenderness Extremity: Normal Capillary Refill, Normal Inspection, Normal Range of Motion, Non Tender, No Calf Tenderness, No Pedal Edema Neurologic/Psychiatric: Alert, Oriented x3, No Motor/Sensory Deficits, Normal Mood/Affect Skin: Normal Color, Warm/Dry Lymphatic: No Adenopathy Results Results/Procedures Labs Laboratory Tests 04/13/23 15:41 04/13/23 20:30 04/14/23 03:35 Patient resulted labs reviewed. Assessment/Plan Admission Diagnosis Assessment: Acute alcohol withdrawal Sepsis placed on cefepime empirically for upper respiratory illness Plan: ICU Precedex IV antibiotics Supportive care Admission Status: Inpatient Order (span 2 midnights) Reason for Inpatient Admission: Alcohol withdrawal JESSICA SALAMANCA DO Apr 14, 2023 07:18
[2023-04-14] MEDS: DOCUSATE SODIUM 100 MG (COLACE) CAP PO SCH ×2 (08:23→20:13)
[2023-04-14] MEDS: FAMOTIDINE 20 MG (PEPCID) TABLET PO SCH ×2 (08:23→20:43)
[2023-04-14] MEDS: LORazepam INJ 2 MG/ML (ATIVAN) VIAL IV PRN ×2 (08:38→10:36)
[2023-04-14] MEDS ORDERED: THIAMINE INJECTION 100 MG, FOLIC ACID INJECTION 1 MG, VITAMIN MULTI INJECTION 10 ML, MA... IV SCH ×5 (09:00)
[2023-04-14] MEDS: THIAMINE INJECTION 100 MG, FOLIC ACID INJECTION 1 MG, VITAMIN MULTI INJECTION 10 ML, MA... IV SCH ×5 (10:35)
[2023-04-14] MEDS: DexMEDEtomidine 250 ML DRIP 250 ML IV SCH (11:49)
--- NOTE | 2023-04-14 12:37 | Tele-ICU Progress Note ---
Subjective Date Seen by a Provider: Apr 14, 2023 Time Seen by a Provider: 12:36 Subjective/Events-last exam (Tele-ICU Physician , Progress Note ) Service provided via interactive audio and video telecommunications E-CARE system to a patient admitted to ICU bed in [facility]. Patient is seen today due to persistent need of ICU care Available chart/ vitals / labs / Images reviewed Video assessment done using teleICU camera, rest of exam as per RN Discussed with RN Events overnight : Afebrile hemodynamically stable Respiratory - I/O = Drips: banana bag , ns 125 Pressors- no Hospital course: A/P ETON withdrawal - pending delirum, CIWA protocol in place. Thiamine/folate/mvi. - precedex ordered by PCP - follow leukocytosis: -empiric cefepime initiated-UA and cxr negative HTN: BP 203/88, HR 104. on admission - with withdrowal - improved PRN labetalol for >170. - hyperkalemia treated with IV Rx in ED resolved Hg 18.8: likely hemoconcentration. -Has received at least 2L IVF- improved - hyponatremia: Hypovolemic hyponatremia - hypomag: repleted - hyperglycemia: sliding scale ordered. Will send A1C Lines : peripf , (Central Line Necessity Reviewed) Christian: OG: Nutrition: Analgesia: Anxiety/ delirium VTE Prophylaxis: winston Stress Ulcer Prophylaxis: pepcid Plans in collaboration with bedside consultants and IM MDs. Discussed with RN to reach out if any questions or concerns Case and care daily discussed on multidisciplinary rounds ( RN, PharmD, Arts Therapist , Respiratory Therapy, fruit i farmworker ) A total of 10 minutes of critical care time was devoted to this patient today, required to treat and/or prevent further deterioration of critical care condition ( as above ) . I am remotely monitoring this patient from another state. I am unable to do the bedside exam, and history/physical and pertinent information is taken from other notes in the computer and bedside staff. Sepsis Event Evaluation Height, Weight, BMI Height: '" Weight: lbs. oz. kg; 18.86 BMI Method: Focused Exam Lactate Level 04/14/23 03:35: Lactic Acid Level 3.31*H 04/14/23 05:43: Lactic Acid Level 2.70*H 04/14/23 07:46: Lactic Acid Level 1.88 Exam Exam Patient acknowledged, consented, and participated in this virtual visit which was conducted using real time audio/video Vital Signs Date Time Temp Pulse Resp B/P (MAP) Pulse Ox O2 Delivery O2 Flow Rate FiO2 04/14/23 12:00 113 23 121/87 (100) 91 Room Air 04/14/23 11:49 112 91/65 04/14/23 11:45 36.0 04/14/23 11:00 90 29 106/87 (93) 90 Room Air 04/14/23 10:00 109 111/84 (94) 93 Room Air 04/14/23 09:00 100 14 109/89 (94) 91 Room Air 04/14/23 09:00 96 Room Air 04/14/23 08:34 93 Room Air 0.00 04/14/23 08:00 91 90 Room Air 04/14/23 07:58 35.8 04/14/23 07:00 98 04/14/23 07:00 99 136/75 (95) 68 Room Air 04/14/23 06:00 76 176/109 (131) 98 Room Air 04/14/23 05:00 77 18 170/109 (129) 98 Room Air 04/14/23 04:00 84 142/99 (113) 95 Room Air 04/14/23 04:00 97 Room Air 04/14/23 03:00 116 169/120 (136) 95 Room Air 04/14/23 02:00 86 30 191/120 (143) 95 Room Air 04/14/23 01:00 86 04/14/23 01:00 83 13 163/120 (134) 96 Room Air 04/14/23 00:00 94 14 201/130 (153) 93 Room Air 04/13/23 23:41 99 Room Air 04/13/23 23:00 103 22 163/89 (113) 95 Room Air 04/13/23 22:00 93 22 140/89 (106) 93 Room Air 04/13/23 20:45 117 28 167/120 (136) 100 Room Air 04/13/23 20:28 36.7 94 96 21 04/13/23 20:15 109 19 141/100 (114) 97 Room Air 04/13/23 20:00 36.4 Room Air 04/13/23 20:00 96 Room Air 04/13/23 19:45 99 18 177/109 (131) 92 Room Air 04/13/23 19:30 101 25 163/116 (132) 98 Room Air 04/13/23 19:15 102 23 165/97 (119) 98 Room Air 04/13/23 19:00 104 04/13/23 19:00 103 24 155/101 (119) 96 Room Air 04/13/23 18:15 97 Room Air 04/13/23 17:34 94 18 149/97 96 Room Air 04/13/23 15:42 36.7 84 18 183/119 (140) 96 Room Air I & O 04/14/23 06:59 Intake Total 4351 ml Output Total 1175 ml Balance 3176 ml Height & Weight Height: '" Weight: lbs. oz. kg; 18.86 BMI Method: General Appearance: Anxious, Mild Distress, Thin HEENT: PERRL/EOMI Neck: Full Range of Motion, Normal Inspection, Non Tender, Supple Respiratory: Lungs Clear, Normal Breath Sounds Cardiovascular: Regular Rate, Rhythm, No Edema Capillary Refill: Less Than 3 Seconds Neurologic/Psychiatric: Alert, Oriented x3, No Motor/Sensory Deficits, Normal Mood/Affect, room service clerk II-XII Norm as Tested, Other (Hand tremors present) Skin: Normal Color Results Lab Laboratory Tests 04/13/23 15:41 04/13/23 20:30 04/14/23 03:35 Assessment/Plan Assessment/Plan 1 JOSE DANIEL IVEY MD Apr 14, 2023 12:37
[2023-04-14] MEDS: ANTACID SUSP 30 ML UDC (MYLANTA) PO PRN (14:34)
[2023-04-14] MEDS: LACTATED RINGERS 1,000 ML IV SCH ×4 (16:30→19:41)
[2023-04-14] MEDS: ENOXAPARIN INJECTION 30 MG/0.3 ML SYR SC SCH (18:25)
[2023-04-15] MEDS: ONDANSETRON 4 MG/2 ML (SDV) Z0FRAN IV PRN ×3 (01:41→16:32)
[2023-04-15] MEDS: NS IV 1000 ML 1,000 ML IV SCH ×3 (03:00→17:39)
[2023-04-15] MEDS: D5 1/2 NS W/KCL 20 MEQ/L 1,000 ML IV SCH ×4 (03:35→23:39)
[2023-04-15 04:55] LABS: BASOPHILS % (AUTO) 0 % (0-10); EOSINOPHILS % (AUTO) 0 % (0-10); HEMOGLOBIN 12.1 g/dL (13.3-17.7)
[2023-04-15 04:57] LABS: HEMATOCRIT 37 % (40-54); LYMPHOCYTES # (AUTO) 0.9 10^3/uL (1.0-4.0); LYMPHOCYTES % (AUTO) 8 % (12-44); MEAN CORPUSCULAR HEMOGLOBIN 33 pg (25-34); MEAN CORPUSCULAR HGB CONC 33 g/dL (32-36); MEAN CORPUSCULAR VOLUME 101 fL (80-99); MEAN PLATELET VOLUME 10.9 fL (9.0-12.2); MONOCYTES # (AUTO) 1.1 10^3/uL (0.0-1.0); MONOCYTES % (AUTO) 9 % (0-12); NEUTROPHILS # (AUTO) 9.9 10^3/uL (1.8-7.8); NEUTROPHILS % (AUTO) 82 % (42-75); PLATELET COUNT 87 10^3/uL (130-400)
[2023-04-15] MEDS ORDERED: NS IV 500 ML 500 ML IV ONE (05:00)
[2023-04-15] MEDS ORDERED: NS IV 500 ML 500 ML ONE ×2 (05:03→06:20)
[2023-04-15 05:11] LABS: ALBUMIN 2.1 GM/DL (3.2-4.5); BILIRUBIN,TOTAL 0.6 MG/DL (0.1-1.0); CALCIUM 7.4 MG/DL (8.5-10.1); CREATININE SERUM 0.68 MG/DL (0.60-1.30); MAGNESIUM 2.1 MG/DL (1.6-2.4); PHOSPHORUS 2.3 MG/DL (2.3-4.7); POTASSIUM 4.3 MMOL/L (3.6-5.0); TOTAL PROTEIN 4.1 GM/DL (6.4-8.2)
[2023-04-15] MEDS: POTASSIUM CL 10MEQ/50ML IVPB 50 ML IV SCH (05:22)
[2023-04-15] MEDS: KCL 20 MEQ TAB (K-DUR) PO SCH (05:23)
[2023-04-15] MEDS: MAGNESIUM 1 GM/100 ML IVPB 100 ML IV SCH (05:23)
[2023-04-15 05:31] LABS: SMEAR SCAN COMMENT YES
[2023-04-15] MEDS: CEFEPIME INJECTION 1,000 MG in NS (IVPB) 50 ML IV SCH ×3 (06:26→17:39)
[2023-04-15] MEDS ORDERED: NS 100 ML (IVPB) BAG IV ONE (06:30)
--- NOTE | 2023-04-15 06:31 | Progress Note - Hospitalist ---
Subjective HPI/CC On Admission Date Seen by Provider: Apr 15, 2023 Time Seen by Provider: 09:00 Chief complaint: Alcohol withdrawal HPI: This is a 62-year-old male who presented to the [place] ER in alcohol withdrawal. He has been trying to quit alcohol but having difficulty and began having delusions. Currently he will require Precedex for agitation and he is high risk for seizures. Subjective/Events-last exam No major changes Precedex causes hypotension so minimizing that Needs Ativan scheduled Patient very debilitated Review of Systems General: Fatigue, Malaise Focused Exam Lactate Level 04/14/23 03:35: Lactic Acid Level 3.31*H 04/14/23 05:43: Lactic Acid Level 2.70*H 04/14/23 07:46: Lactic Acid Level 1.88 Objective Exam Vital Signs Vital Signs Date Time Temp Pulse Resp B/P (MAP) Pulse Ox O2 Delivery O2 Flow Rate FiO2 04/15/23 14:00 105 31 130/82 (98) Room Air 04/15/23 12:00 37.2 04/15/23 11:40 97 04/14/23 08:34 0.00 04/13/23 20:28 21 Capillary Refill : Less Than 3 Seconds General Appearance: No Apparent Distress, WD/WN, Chronically ill Respiratory: Lungs Clear, Normal Breath Sounds Cardiovascular: Regular Rate, Rhythm Results/Procedures Lab Laboratory Tests 04/15/23 04:08 Patient resulted labs reviewed. Assessment/Plan Assessment and Plan Assess & Plan/Chief Complaint Assessment: Alcohol withdrawal Bacterial bronchitis COPD Plan: ICU High risk for seizure SANJAY RDED DO Apr 15, 2023 06:31
[2023-04-15] MEDS: FAMOTIDINE 20 MG (PEPCID) TABLET PO SCH ×2 (08:45→22:22)
[2023-04-15] MEDS: DOCUSATE SODIUM 100 MG (COLACE) CAP PO SCH ×2 (08:45→22:22)
[2023-04-15] MEDS: THIAMINE INJECTION 100 MG, FOLIC ACID INJECTION 1 MG, VITAMIN MULTI INJECTION 10 ML, MA... IV SCH ×5 (09:40)
[2023-04-15] MEDS: LORazepam INJ 2 MG/ML (ATIVAN) VIAL IV PRN ×3 (09:48→15:22)
[2023-04-15] MEDS: ACETAMINOPHEN 325 MG TABLET PO PRN (13:51)
[2023-04-15] MEDS: DexMEDEtomidine 250 ML DRIP 250 ML IV SCH (16:32)
[2023-04-15] MEDS: CALCIUM CARBONATE 500 MG (TUMS) TAB.CHEW PO PRN (16:36)
[2023-04-15] MEDS: ENOXAPARIN INJECTION 30 MG/0.3 ML SYR SC SCH (17:39)
[2023-04-15] MEDS: HYDROmorphone 2 MG/ML VIAL (DILAUDID) IV PRN (18:57)
[2023-04-16] MEDS: CEFEPIME INJECTION 1,000 MG in NS (IVPB) 50 ML IV SCH ×4 (00:14→18:08)
[2023-04-16] MEDS: NS IV 1000 ML 1,000 ML IV SCH ×3 (01:21→20:45)
[2023-04-16] MEDS: D5 1/2 NS W/KCL 20 MEQ/L 1,000 ML IV SCH ×3 (01:21→20:29)
[2023-04-16] MEDS: KCL 20 MEQ TAB (K-DUR) PO SCH (05:03)
[2023-04-16] MEDS: MAGNESIUM 1 GM/100 ML IVPB 100 ML IV SCH ×5 (05:03→09:56)
[2023-04-16] MEDS: POTASSIUM CL 10MEQ/50ML IVPB 50 ML IV SCH (05:03)
[2023-04-16 05:19] LABS: BASOPHILS % (AUTO) 1 % (0-10); EOSINOPHILS # (AUTO) 0.5 10^3/uL (0.0-0.3); NEUTROPHILS # (AUTO) 5.7 10^3/uL (1.8-7.8)
[2023-04-16 05:21] LABS: EOSINOPHILS % (AUTO) 6 % (0-10); HEMATOCRIT 36 % (40-54); HEMOGLOBIN 11.9 g/dL (13.3-17.7); LYMPHOCYTES % (AUTO) 13 % (12-44); MEAN CORPUSCULAR HEMOGLOBIN 33 pg (25-34); MEAN CORPUSCULAR HGB CONC 33 g/dL (32-36); MEAN CORPUSCULAR VOLUME 101 fL (80-99); MEAN PLATELET VOLUME 10.9 fL (9.0-12.2); MONOCYTES # (AUTO) 0.7 10^3/uL (0.0-1.0); MONOCYTES % (AUTO) 9 % (0-12); NEUTROPHILS % (AUTO) 72 % (42-75); PLATELET COUNT 54 10^3/uL (130-400)
[2023-04-16 05:33] LABS: ALBUMIN 2.3 GM/DL (3.2-4.5); BILIRUBIN,TOTAL 0.4 MG/DL (0.1-1.0); CREATININE SERUM 0.7 MG/DL (0.60-1.30); MAGNESIUM 1.7 MG/DL (1.6-2.4); PHOSPHORUS 2.4 MG/DL (2.3-4.7); POTASSIUM 3.9 MMOL/L (3.6-5.0); TOTAL PROTEIN 4.4 GM/DL (6.4-8.2)
[2023-04-16 05:51] LABS: SMEAR SCAN COMMENT YES
--- NOTE | 2023-04-16 05:56 | Progress Note - Hospitalist ---
Subjective HPI/CC On Admission Date Seen by Provider: Apr 16, 2023 Time Seen by Provider: 09:30 Chief complaint: Alcohol withdrawal HPI: This is a 62-year-old male who presented to the [place] ER in alcohol withdrawal. He has been trying to quit alcohol but having difficulty and began having delusions. Currently he will require Precedex for agitation and he is high risk for seizures. Subjective/Events-last exam No major changes Precedex required Focused Exam Lactate Level 04/14/23 03:35: Lactic Acid Level 3.31*H 04/14/23 05:43: Lactic Acid Level 2.70*H 04/14/23 07:46: Lactic Acid Level 1.88 Objective Exam Vital Signs Vital Signs Date Time Temp Pulse Resp B/P (MAP) Pulse Ox O2 Delivery O2 Flow Rate FiO2 04/16/23 12:00 36.6 Room Air 04/16/23 11:00 75 17 114/67 (83) 95 04/14/23 08:34 0.00 04/13/23 20:28 21 Capillary Refill : Less Than 3 Seconds General Appearance: No Apparent Distress, WD/WN, Chronically ill, Other (sedated) Respiratory: Lungs Clear Cardiovascular: Regular Rate, Rhythm Results/Procedures Lab Laboratory Tests 04/16/23 05:02 Patient resulted labs reviewed. Assessment/Plan Assessment and Plan Assess & Plan/Chief Complaint Assessment: Alcohol withdrawal Bacterial bronchitis COPD Plan: ICU High risk for seizure SANJAY REDD DO Apr 16, 2023 05:56
[2023-04-16] MEDS: FOLIC ACID 1 MG TAB PO SCH (07:59)
[2023-04-16] MEDS ORDERED: KCL 20 MEQ TAB (K-DUR) PO ONE (08:00)
[2023-04-16] MEDS: FAMOTIDINE 20 MG (PEPCID) TABLET PO SCH ×2 (08:00→20:29)
[2023-04-16] MEDS ORDERED: GABA300C PO (08:30)
[2023-04-16] MEDS ORDERED: TIZA-169 PO (08:30)
[2023-04-16] MEDS ORDERED: DULO60CA59 PO (08:30)
[2023-04-16] MEDS ORDERED: MTP100TCR PO (08:30)
[2023-04-16] MEDS ORDERED: FAMO20TA5 PO (08:30)
[2023-04-16] MEDS ORDERED: QUET100T33 PO (08:30)
[2023-04-16] MEDS ORDERED: NAPR220T66 PO (08:30)
[2023-04-16] MEDS ORDERED: MIDO5TAB3 PO (08:30)
[2023-04-16] MEDS ORDERED: FAMO20TA3 PO (08:30)
[2023-04-16] MEDS ORDERED: MULT-1136 PO (08:30)
[2023-04-16] MEDS ORDERED: CLOP75TA28 PO (08:30)
[2023-04-16 08:48] LABS: BILIRUBIN,URINE NEGATIVE (NEGATIVE); CLARITY,URINE CLEAR; COLOR,URINE YELLOW; GLUCOSE, URINE (UA) NEGATIVE (NEGATIVE); KETONES,URINE NEGATIVE (NEGATIVE); LEUKOCYTE ESTERASE ,URINE NEGATIVE (NEGATIVE); NITRITE,URINE NEGATIVE (NEGATIVE); PROTEIN,URINE NEGATIVE (NEGATIVE)
[2023-04-16 08:58] LABS: BACTERIA,URINE NEGATIVE /HPF; RBC,URINE RARE /HPF; SQUAMOUS EPITHELIAL CELL,UR RARE /HPF; WBC,URINE RARE /HPF
[2023-04-16] MEDS ORDERED: MAGNESIUM OXIDE (MAG-OX)400 MG TAB PO SCH (09:00)
--- NOTE | 2023-04-16 09:28 | Tele-ICU Progress Note ---
Subjective Date Seen by a Provider: Apr 16, 2023 Time Seen by a Provider: 09:28 Subjective/Events-last exam (Tele-ICU Physician , Progress Note ) Service provided via interactive audio and video telecommunications E-CARE system to a patient admitted to ICU bed in [facility]. Patient is seen today due to persistent need of ICU care Available chart/ vitals / labs / Images reviewed Video assessment done using teleICU camera, rest of exam as per RN Discussed with RN Events overnight : Afebrile hemodynamically stable Respiratory - ra I/O = neg Drips: d5 1/2 ns 150 Pressors- no Hospital course: (6.9) Admitted a 62 y/o with ETOH withdrawl. Consumes 1L of whisky per day 04/15- precedex 0.7 A/P ETON withdrawal - pending delirum, CIWA protocol in place. Thiamine/folate/mvi. - precedex ordered by PCP - follow Thrombicytopenia - 54 on 04/16 - ? etiology - hols lovenox and check HITA Abdominal pain - cont H2 bl , re-check lipase leukocytosis: -empiric cefepime initiated-UA and cxr negative - To be finished HTN: BP 203/88, HR 104. on admission - with withdrowal - improved PRN labetalol for >170. - controlled Hg 18.8: likely hemoconcentration. -Has received at least 2L IVF- improved - hyponatremia: Hypovolemic hyponatremia - hyperglycemia: sliding scale ordered. Will send A1C- pending Lines : peripf , (Central Line Necessity Reviewed) Christian: OG: Nutrition: Analgesia: Anxiety/ delirium VTE Prophylaxis: winston - ON HOLD 04/16 Stress Ulcer Prophylaxis: pepcid Plans in collaboration with bedside consultants and IM MDs. Discussed with RN to reach out if any questions or concerns Case and care daily discussed on multidisciplinary rounds ( RN, PharmD, Instrument And Electrical Technician , Respiratory Therapy, farrowing worker ) A total of 20 minutes of critical care time was devoted to this patient today, required to treat and/or prevent further deterioration of critical care condition ( as above ) . I am remotely monitoring this patient from another state. I am unable to do the bedside exam, and history/physical and pertinent information is taken from other notes in the computer and bedside staff. Sepsis Event Evaluation Height, Weight, BMI Height: '" Weight: lbs. oz. kg; 18.86 BMI Method: Focused Exam Lactate Level 04/14/23 03:35: Lactic Acid Level 3.31*H 04/14/23 05:43: Lactic Acid Level 2.70*H 04/14/23 07:46: Lactic Acid Level 1.88 Exam Exam Patient acknowledged, consented, and participated in this virtual visit which was conducted using real time audio/video Vital Signs Date Time Temp Pulse Resp B/P (MAP) Pulse Ox O2 Delivery O2 Flow Rate FiO2 04/16/23 08:00 77 22 122/80 (94) 100 Room Air 04/16/23 07:42 36.7 04/16/23 07:00 73 04/16/23 07:00 86 16 102/66 (78) 100 Room Air 04/16/23 06:00 64 155/88 (110) 88 Room Air 04/16/23 05:00 69 13 142/84 (103) 100 Room Air 04/16/23 04:00 68 120/77 (94) Room Air 04/16/23 04:00 100 Room Air 04/16/23 03:39 35.7 04/16/23 03:00 61 156/89 (113) Room Air 04/16/23 02:00 58 146/87 (111) Room Air 04/16/23 01:30 65 18 129/91 (115) Room Air 04/16/23 01:00 68 13 149/85 (109) Room Air 04/16/23 01:00 68 04/16/23 00:16 35.7 04/16/23 00:00 65 127/80 (96) Room Air 04/15/23 23:59 97 Room Air 04/15/23 23:00 53 15 132/75 (94) 98 Room Air 04/15/23 22:00 58 20 138/86 (101) 100 Room Air 04/15/23 21:13 60 22 142/88 (112) Room Air 04/15/23 20:32 74 108/72 04/15/23 20:00 73 20 129/78 (94) 94 Room Air 04/15/23 20:00 96 Room Air 04/15/23 19:28 36.2 74 16 108/72 (84) 99 Room Air 04/15/23 19:00 73 04/15/23 18:00 83 43 102/81 (88) Room Air 04/15/23 17:00 87 24 103/69 (80) Room Air 04/15/23 16:32 106 125/77 04/15/23 16:00 106 19 110/71 (84) Room Air 04/15/23 15:54 97 Room Air 04/15/23 15:00 98 27 Room Air 04/15/23 14:00 105 31 130/82 (98) Room Air 04/15/23 13:00 93 15 121/75 (92) Room Air 04/15/23 12:43 97 04/15/23 12:00 37.2 04/15/23 12:00 105 18 133/90 (109) Room Air 04/15/23 11:40 97 Room Air 04/15/23 11:00 99 37 111/72 (84) 95 Room Air 04/15/23 10:00 112 15 124/84 (104) 91 Room Air I & O 04/16/23 07:00 Intake Total 4775 ml Output Total 4275 ml Balance 500 ml Height & Weight Height: '" Weight: lbs. oz. kg; 18.86 BMI Method: General Appearance: No Apparent Distress, WD/WN, Chronically ill HEENT: PERRL/EOMI, Normal ENT Inspection, Pharynx Normal, Moist Mucous Membranes Neck: Full Range of Motion, Normal Inspection, Non Tender Respiratory: Lungs Clear, Normal Breath Sounds Cardiovascular: Regular Rate, Rhythm Capillary Refill: Less Than 3 Seconds Extremity: Normal Capillary Refill, Normal Inspection, Normal Range of Motion, Non Tender, No Calf Tenderness, No Pedal Edema Neurologic/Psychiatric: Alert, Oriented x3, No Motor/Sensory Deficits, Normal Mood/Affect Skin: Normal Color, Warm/Dry Lymphatic: No Adenopathy Results Lab Laboratory Tests 04/15/23 04:08 04/16/23 05:02 Assessment/Plan Assessment/Plan 1 JOSE DANIEL IVEY MD Apr 16, 2023 09:28
[2023-04-16] MEDS: DOCUSATE SODIUM 100 MG (COLACE) CAP PO SCH ×2 (09:29→20:29)
[2023-04-16] MEDS: DexMEDEtomidine 250 ML DRIP 250 ML IV SCH (09:29)
[2023-04-16] MEDS: LORazepam INJ 2 MG/ML (ATIVAN) VIAL IV PRN (11:02)
--- NOTE | 2023-04-16 19:44 | Physician Query-Final Dx ---
LOLY JOHNSON 04/16/231942: Final Diagnosis Give Final Diagnosis The medical record reflects the following clinical scenario: History/Risk factors: Alcohol abuse with withdrawal on admission, "on cefepime empirically for upper respiratory illness" Clinical Findings: Admission VS/LABS: HR 84 did increase 104 in within 2 hours, RR 18 increased to 24, BP 183/119, SpO2 96% sat on room air, T 36.7 decreased to 35.8, WBC 20.6, Lactic acid on admission 2.07 did increase as high as 4.52 Treatment: In ER: NS 2L, Cefepime IV, Question: Is Sepsis a clinically valid diagnosis? Sepsis was documented in the H and P with no further documentation of sepsis in the medical record. If yes, please document in the Progress Notes and Discharge Summary. Yes, Sepsis, condition resolved No, condition ruled out Other, with explanation of clinical findings Undetermined, no explanation for clinical findings In responding to this query, please exercise your independent professional j udgment. The purpose of this communication is to more accurately reflect the complexity of your patients condition. The fact that a question is asked does not imply that any particular answer is desired or expected. Thank you for your timely response to this clarification. Loly Johnson MSN, RN Clinical Process Mold Technician SANJAY REDD DO 04/16/232036: Final Diagnosis Give Final Diagnosis Yes, Sepsis, condition resolved LOLY JOHNSON Apr 16, 2023 19:43 SANJAY REDD DO Apr 16, 2023 20:37
[2023-04-16] MEDS: ANTACID SUSP 30 ML UDC (MYLANTA) PO PRN (23:51)
[2023-04-17] MEDS: CEFEPIME INJECTION 1,000 MG in NS (IVPB) 50 ML IV SCH ×4 (00:52→18:07)
[2023-04-17] MEDS: CALCIUM CARBONATE 500 MG (TUMS) TAB.CHEW PO PRN (01:36)
[2023-04-17] MEDS: NS IV 1000 ML 1,000 ML IV SCH ×3 (03:11→17:37)
[2023-04-17] MEDS: D5 1/2 NS W/KCL 20 MEQ/L 1,000 ML IV SCH ×4 (04:00→20:36)
[2023-04-17 04:58] LABS: BASOPHILS % (AUTO) 1 % (0-10); HEMOGLOBIN 11.7 g/dL (13.3-17.7); MONOCYTES # (AUTO) 0.9 10^3/uL (0.0-1.0); MONOCYTES % (AUTO) 11 % (0-12)
[2023-04-17 05:00] LABS: EOSINOPHILS # (AUTO) 0.4 10^3/uL (0.0-0.3); EOSINOPHILS % (AUTO) 5 % (0-10); HEMATOCRIT 36 % (40-54); LYMPHOCYTES % (AUTO) 12 % (12-44); MEAN CORPUSCULAR HEMOGLOBIN 33 pg (25-34); MEAN CORPUSCULAR HGB CONC 33 g/dL (32-36); MEAN CORPUSCULAR VOLUME 101 fL (80-99); MEAN PLATELET VOLUME 11.2 fL (9.0-12.2); NEUTROPHILS # (AUTO) 5.7 10^3/uL (1.8-7.8); NEUTROPHILS % (AUTO) 71 % (42-75); PLATELET COUNT 60 10^3/uL (130-400)
[2023-04-17 05:13] LABS: ALBUMIN 2.3 GM/DL (3.2-4.5); BILIRUBIN,TOTAL 0.3 MG/DL (0.1-1.0); CALCIUM 8.1 MG/DL (8.5-10.1); CREATININE SERUM 0.64 MG/DL (0.60-1.30); MAGNESIUM 1.8 MG/DL (1.6-2.4); PHOSPHORUS 2.7 MG/DL (2.3-4.7); TOTAL PROTEIN 4.4 GM/DL (6.4-8.2)
[2023-04-17] MEDS: MAGNESIUM 1 GM/100 ML IVPB 100 ML IV SCH ×3 (05:20→07:56)
[2023-04-17] MEDS: POTASSIUM CL 10MEQ/50ML IVPB 50 ML IV SCH (05:20)
[2023-04-17] MEDS: KCL 20 MEQ TAB (K-DUR) PO SCH (05:20)
--- NOTE | 2023-04-17 06:17 | Progress Note - Hospitalist ---
Subjective HPI/CC On Admission Date Seen by Provider: Apr 17, 2023 Time Seen by Provider: 11:00 Chief complaint: Alcohol withdrawal HPI: This is a 62-year-old male who presented to the [place] ER in alcohol withdrawal. He has been trying to quit alcohol but having difficulty and began having delusions. Currently he will require Precedex for agitation and he is high risk for seizures. Subjective/Events-last exam Still requiring Precedex Very long and slow recovery alcohol withdrawal Took all of his clothes off and sitting in bed with no clothes on and Chrisitan catheter in place Review of Systems Neurological: Confusion Focused Exam Lactate Level Objective Exam Vital Signs Vital Signs Date Time Temp Pulse Resp B/P (MAP) Pulse Ox O2 Delivery O2 Flow Rate FiO2 04/17/23 20:45 95 Room Air 04/17/23 19:33 37.0 04/17/23 18:00 112 15 154/100 (118) 04/17/23 16:00 2.00 04/17/23 14:09 21 Capillary Refill : Less Than 3 Seconds General Appearance: No Apparent Distress, WD/WN, Chronically ill Respiratory: Lungs Clear, Normal Breath Sounds Cardiovascular: Regular Rate, Rhythm Neurologic/Psychiatric: Alert, Disoriented Results/Procedures Lab Laboratory Tests 04/17/23 04:26 Patient resulted labs reviewed. Assessment/Plan Assessment and Plan Assess & Plan/Chief Complaint Assessment: Alcohol withdrawal Bacterial bronchitis COPD Plan: ICU High risk for seizure SANJAY REDD DO Apr 17, 2023 06:17
[2023-04-17] MEDS: LORazepam 1 MG (ATIVAN) TAB PO PRN ×4 (07:56→16:46)
[2023-04-17] MEDS: FOLIC ACID 1 MG TAB PO SCH (07:57)
[2023-04-17] MEDS: DOCUSATE SODIUM 100 MG (COLACE) CAP PO SCH ×2 (07:57→20:21)
[2023-04-17] MEDS: FAMOTIDINE 20 MG (PEPCID) TABLET PO SCH ×2 (07:57→20:19)
--- NOTE | 2023-04-17 08:17 | Tele-ICU Progress Note ---
Subjective Date Seen by a Provider: Apr 17, 2023 Time Seen by a Provider: 08:13 Subjective/Events-last exam Tele-ICU Physician , Progress Note ) Service provided via interactive audio and video telecommunications E-CARE system to a patient admitted to ICU bed in [facility]. Patient is seen today due to persistent need of ICU care Available chart/ vitals / labs / Images reviewed Video assessment done using teleICU camera, rest of exam as per RN Discussed with RN Events overnight : 69 yo M admitted with EtOH withdrawal, on CIWA protocol, d4, on PRN IV Ativan, but not needing any today was on IV Precedex but now off, c/o itching, no tremor, slight diaphoresis, no hallucinations but is having visual disturbances, mood is labile plt count low-today is 60, up from 54, no bleeding. Abd pain, lipase normal, at times c/o abd pain, EKG was NSR HTN-on PRN labetolol, not needed any BP meds, but did need IVF yesterday for hypotension, BP now is 140/90 Hb was 18, now 11.7 Sepsis Event Evaluation Height, Weight, BMI Height: '" Weight: lbs. oz. kg; 18.86 BMI Method: Exam Exam Patient acknowledged, consented, and participated in this virtual visit which was conducted using real time audio/video Vital Signs Date Time Temp Pulse Resp B/P (MAP) Pulse Ox O2 Delivery O2 Flow Rate FiO2 04/17/23 08:08 36.8 04/17/23 07:00 82 04/17/23 06:00 87 19 109/59 (76) 93 Room Air 04/17/23 05:00 89 25 119/75 (90) 97 Room Air 04/17/23 04:00 83 20 130/75 (93) 90 Room Air 04/17/23 04:00 98 Room Air 04/17/23 03:28 37.3 04/17/23 03:00 87 24 123/79 (94) 90 Room Air 04/17/23 02:00 93 18 114/86 (100) 96 Room Air 04/17/23 01:00 91 04/17/23 01:00 91 21 116/72 (89) 90 Room Air 04/17/23 00:00 90 25 107/74 (85) 97 Room Air 04/16/23 23:59 94 Nasal Cannula 2.00 04/16/23 23:03 83 32 98/64 (70) 92 Room Air 04/16/23 22:00 90 11 95 Room Air 04/16/23 21:00 92 11 127/85 (99) 96 Room Air 04/16/23 20:00 92 Nasal Cannula 2.00 04/16/23 20:00 79 27 117/68 (89) 92 Room Air 04/16/23 19:23 36.7 82 22 108/67 (81) 91 Room Air 04/16/23 19:00 76 27 127/77 (98) 91 Room Air 04/16/23 19:00 76 04/16/23 18:00 80 25 118/74 (89) 96 Room Air 04/16/23 17:42 92 Room Air 04/16/23 17:00 74 19 143/94 (110) 100 Room Air 04/16/23 16:00 100 Room Air 04/16/23 16:00 36.6 Room Air 04/16/23 16:00 69 23 120/67 (84) 99 Room Air 04/16/23 15:00 67 22 98/52 (67) 96 Room Air 04/16/23 14:00 68 22 114/77 (89) 93 Room Air 04/16/23 13:00 77 04/16/23 13:00 77 19 126/94 (105) 95 Room Air 04/16/23 12:00 75 18 110/68 (82) 95 Room Air 04/16/23 12:00 100 Room Air 04/16/23 12:00 36.6 Room Air 04/16/23 11:00 75 17 114/67 (83) 95 Room Air 04/16/23 10:00 71 22 106/70 (82) 96 Room Air 04/16/23 09:00 73 20 101/88 (92) 99 Room Air I & O 04/17/23 07:00 Intake Total 4490 ml Output Total 4000 ml Balance 490 ml Height & Weight Height: '" Weight: lbs. oz. kg; 18.86 BMI Method: General Appearance: No Apparent Distress, WD/WN, Chronically ill, Other (sedated) HEENT: PERRL/EOMI, Normal ENT Inspection, Pharynx Normal, Moist Mucous Membranes Neck: Full Range of Motion, Normal Inspection, Non Tender Respiratory: Lungs Clear Cardiovascular: Regular Rate, Rhythm Capillary Refill: Less Than 3 Seconds Gastrointestinal: normal bowel sounds, non tender, soft, other (some guarding julio umbilical area) Extremity: Normal Capillary Refill, Normal Inspection, Normal Range of Motion, Non Tender, No Calf Tenderness, No Pedal Edema Neurologic/Psychiatric: Alert, Oriented x3, No Motor/Sensory Deficits, Normal Mood/Affect Skin: Normal Color, Warm/Dry Lymphatic: No Adenopathy Results Lab Laboratory Tests 04/16/23 05:02 04/17/23 04:26 Assessment/Plan Assessment/Plan EtOH withdrawal, will continue on CIWA protocol, on PRN IV Ativan but not needing and off IV Precedex dehyration-resolved but at times may need more IVF HTN still high at times, latest at 109/59 Pt says reluctant to stop EtOH Critical Care: Critically Ill Patient Time spent with patient (mins): 25 ESTER RUDOLPH MD Apr 17, 2023 08:17
[2023-04-17] MEDS: LABETALOL HCL 20 MG/4 ML VIAL IV PRN (10:53)
[2023-04-17] MEDS ORDERED: NS (IVPB) 50 ML ONE (12:09)
[2023-04-17 14:09] VITALS: BP 130/88
[2023-04-17] MEDS: MELATONIN 3 MG TABLET PO PRN (20:19)
[2023-04-18] MEDS: CEFEPIME INJECTION 1,000 MG in NS (IVPB) 50 ML IV SCH (00:06)
[2023-04-18] MEDS: NS IV 1000 ML 1,000 ML IV SCH ×4 (00:41→22:42)
[2023-04-18] MEDS: D5 1/2 NS W/KCL 20 MEQ/L 1,000 ML IV SCH (03:46)
[2023-04-18 05:11] LABS: MEAN CORPUSCULAR VOLUME 100 fL (80-99)
[2023-04-18 05:13] LABS: BASOPHILS # (AUTO) 0.1 10^3/uL (0.0-0.1); BASOPHILS % (AUTO) 1 % (0-10); EOSINOPHILS # (AUTO) 0.5 10^3/uL (0.0-0.3); EOSINOPHILS % (AUTO) 8 % (0-10); HEMATOCRIT 34 % (40-54); HEMOGLOBIN 11.5 g/dL (13.3-17.7); LYMPHOCYTES # (AUTO) 0.9 10^3/uL (1.0-4.0); LYMPHOCYTES % (AUTO) 13 % (12-44); MEAN CORPUSCULAR HEMOGLOBIN 33 pg (25-34); MEAN CORPUSCULAR HGB CONC 33 g/dL (32-36); MEAN PLATELET VOLUME 10.9 fL (9.0-12.2); MONOCYTES # (AUTO) 1.1 10^3/uL (0.0-1.0); MONOCYTES % (AUTO) 17 % (0-12); NEUTROPHILS # (AUTO) 3.8 10^3/uL (1.8-7.8); NEUTROPHILS % (AUTO) 60 % (42-75); PLATELET COUNT 92 10^3/uL (130-400); WHITE BLOOD COUNT 6.4 10^3/uL (4.3-11.0)
[2023-04-18 05:29] LABS: ALBUMIN 2.4 GM/DL (3.2-4.5); BILIRUBIN,TOTAL 0.3 MG/DL (0.1-1.0); CALCIUM 8.4 MG/DL (8.5-10.1); CREATININE SERUM 0.68 MG/DL (0.60-1.30); MAGNESIUM 1.6 MG/DL (1.6-2.4); PHOSPHORUS 3.8 MG/DL (2.3-4.7); POTASSIUM 4.4 MMOL/L (3.6-5.0); TOTAL PROTEIN 4.7 GM/DL (6.4-8.2)
[2023-04-18] MEDS: POTASSIUM CL 10MEQ/50ML IVPB 50 ML IV SCH (05:51)
[2023-04-18] MEDS: KCL 20 MEQ TAB (K-DUR) PO SCH (05:52)
[2023-04-18] MEDS: MAGNESIUM 1 GM/100 ML IVPB 100 ML IV SCH ×4 (05:52→10:00)
--- NOTE | 2023-04-18 05:53 | Progress Note - Hospitalist ---
Subjective HPI/CC On Admission Date Seen by Provider: Apr 18, 2023 Time Seen by Provider: 08:00 Chief complaint: Alcohol withdrawal HPI: This is a 62-year-old male who presented to the [place] ER in alcohol withdrawal. He has been trying to quit alcohol but having difficulty and began having delusions. Currently he will require Precedex for agitation and he is high risk for seizures. Subjective/Events-last exam Patient still in withdrawal We will likely move down to fourth floor We will monitor tachycardia Checked meds and labs Review of Systems General: Fatigue, Malaise Objective Exam Vital Signs Vital Signs Date Time Temp Pulse Resp B/P (MAP) Pulse Ox O2 Delivery O2 Flow Rate FiO2 04/18/23 19:35 36.9 102 17 122/76 (91) 94 Room Air 04/17/23 16:00 2.00 04/17/23 14:09 21 Capillary Refill : Less Than 3 Seconds General Appearance: No Apparent Distress, WD/WN, Chronically ill Respiratory: Lungs Clear, Normal Breath Sounds Cardiovascular: Regular Rate, Rhythm Neurologic/Psychiatric: Alert, Oriented x3 Results/Procedures Lab Laboratory Tests 04/18/23 04:45 Patient resulted labs reviewed. Assessment/Plan Assessment and Plan Assess & Plan/Chief Complaint Assessment: Alcohol withdrawal Bacterial bronchitis COPD Plan: Fourth floor High risk for seizure Critical Care Critically Ill Patient IVANIASANJAY HALL Apr 18, 2023 05:53
[2023-04-18] MEDS: THIAMINE 100 MG (VITAMIN B-1) TAB PO SCH (07:36)
--- NOTE | 2023-04-18 08:48 | Tele-ICU Progress Note ---
Subjective Date Seen by a Provider: Apr 18, 2023 Time Seen by a Provider: 08:48 Subjective/Events-last exam (Tele-ICU Physician , Progress Note ) Service provided via interactive audio and video telecommunications E-CARE system to a patient admitted to ICU bed in [facility]. Patient is seen today due to persistent need of ICU care Available chart/ vitals / labs / Images reviewed Video assessment done using teleICU camera, rest of exam as per RN Discussed with RN Events overnight : Afebrile hemodynamically stable Respiratory - ra I/O = neg Drips: d5 1/2 ns 150 to stop Pressors- no Hospital course: (6.9) Admitted a 62 y/o with ETOH withdrawl. Consumes 1L of whisky per day 04/15- precedex 0.7 04/18- OFF pecedex 04/17 A/P ETON withdrawal - pending delirum, CIWA protocol in place. Thiamine/folate/mvi. - precedex OFF , > 24 h , minimal CIWA score Thrombicytopenia - 54 on 04/16 - ? etiology - hold lovenox - HITA - neg Abdominal pain - cont H2 bl , add PPI , lipase was WNL - as per PCP leukocytosis: -empiric cefepime initiated-UA and cxr negative - FINISHED HTN: BP 203/88, HR 104. on admission - with withdrowal - improved PRN labetalol for >170. - controlled Hg 18.8: likely hemoconcentration. -Has received at least 2L IVF- improved - hyponatremia: Hypovolemic hyponatremia , will stop 1/2 ns - hyperglycemia: sliding scale ordered. -A1C- 4.8 on 04/13 Urine incontinence - ? reported , no detailes Lines : peripf , (Central Line Necessity Reviewed) Jenkins: jenkins - to remove , OG: Nutrition: po Analgesia: Anxiety/ delirium VTE Prophylaxis: winston - ON HOLD 04/16 Stress Ulcer Prophylaxis: pepcid Plans in collaboration with bedside consultants and IM MDs. Discussed with RN to reach out if any questions or concerns Case and care daily discussed on multidisciplinary rounds ( RN, PharmD, Tourist Guide , Respiratory Therapy, supervisor cemetery workers ) A total of 20 minutes of critical care time was devoted to this patient today, required to treat and/or prevent further deterioration of critical care condition ( as above ) . I am remotely monitoring this patient from another state. I am unable to do the bedside exam, and history/physical and pertinent information is taken from other notes in the computer and bedside staff. Sepsis Event Evaluation Height, Weight, BMI Height: '" Weight: lbs. oz. kg; 20.32 BMI Method: Exam Exam Patient acknowledged, consented, and participated in this virtual visit which was conducted using real time audio/video Vital Signs Date Time Temp Pulse Resp B/P (MAP) Pulse Ox O2 Delivery O2 Flow Rate FiO2 04/18/23 07:00 105 22 135/70 (91) 96 Room Air 04/18/23 07:00 100 04/18/23 06:00 91 25 131/66 (89) 91 Room Air 04/18/23 05:00 108 21 142/93 (129) 95 Room Air 04/18/23 04:00 100 22 140/100 (113) 92 Room Air 04/18/23 04:00 93 Room Air 04/18/23 03:00 99 14 145/92 (109) 97 Room Air 04/18/23 02:00 98 20 124/86 (97) 93 Room Air 04/18/23 01:00 96 04/18/23 01:00 96 18 133/87 (102) 92 Room Air 04/18/23 00:00 95 Room Air 04/18/23 00:00 98 21 127/91 (103) 93 Room Air 04/17/23 23:00 73 38 140/95 (105) 97 Room Air 04/17/23 22:00 105 18 114/78 (86) 93 Room Air 04/17/23 21:00 108 16 119/83 (94) 93 Room Air 04/17/23 20:45 95 Room Air 04/17/23 20:18 104 16 125/76 (85) 93 Room Air 04/17/23 20:00 97 Room Air 04/17/23 19:33 37.0 04/17/23 19:32 37.0 04/17/23 19:05 114 04/17/23 19:00 114 17 123/80 (91) 90 Room Air 04/17/23 18:00 112 15 154/100 (118) 94 Room Air 04/17/23 17:00 105 19 122/91 (101) 90 Room Air 04/17/23 16:47 37.1 Room Air 04/17/23 16:00 98 Room Air 2.00 04/17/23 16:00 108 18 127/84 (98) 92 Room Air 04/17/23 15:09 111 113/84 (94) 93 04/17/23 15:00 19 04/17/23 14:09 91 Room Air 04/17/23 14:09 36.5 112 91 21 04/17/23 14:00 113 16 142/98 (113) 98 Room Air 04/17/23 13:00 112 04/17/23 13:00 105 21 135/56 (82) 98 Room Air 04/17/23 12:00 90 Room Air 04/17/23 12:00 109 20 130/88 (102) 91 Room Air 04/17/23 11:40 36.5 04/17/23 11:00 115 20 134/90 (105) 94 Room Air 04/17/23 10:00 116 16 143/100 (114) 97 Room Air 04/17/23 09:00 103 15 149/87 (107) 94 Room Air I & O 04/18/23 07:00 Intake Total 5480 ml Output Total 8350 ml Balance -2870 ml Height & Weight Height: '" Weight: lbs. oz. kg; 20.32 BMI Method: General Appearance: No Apparent Distress, WD/WN, Chronically ill HEENT: PERRL/EOMI, Normal ENT Inspection, Pharynx Normal, Moist Mucous Membranes Neck: Full Range of Motion, Normal Inspection, Non Tender Respiratory: Lungs Clear, Normal Breath Sounds Cardiovascular: Regular Rate, Rhythm Capillary Refill: Less Than 3 Seconds Gastrointestinal: normal bowel sounds, non tender, soft, other (some guarding julio umbilical area) Extremity: Normal Capillary Refill, Normal Inspection, Normal Range of Motion, Non Tender, No Calf Tenderness, No Pedal Edema Neurologic/Psychiatric: Alert, Disoriented Skin: Normal Color, Warm/Dry Lymphatic: No Adenopathy Results Lab Laboratory Tests 04/17/23 04:26 04/18/23 04:45 Assessment/Plan Assessment/Plan 1 JOSE DANIEL IVEY MD Apr 18, 2023 08:48
[2023-04-18] MEDS: PANTOPRAZOLE 40 MG (PROTONIX) TAB PO SCH (10:00)
[2023-04-18] MEDS: FAMOTIDINE 20 MG (PEPCID) TABLET PO SCH (10:00)
[2023-04-18] MEDS: FOLIC ACID 1 MG TAB PO SCH (10:00)
[2023-04-18] MEDS: DOCUSATE SODIUM 100 MG (COLACE) CAP PO SCH ×2 (10:02→19:44)
[2023-04-18] MEDS ORDERED: FAMOTIDINE 20 MG (PEPCID) TABLET PO PRN (12:30)
[2023-04-18] MEDS ORDERED: NON-FORMULARY MEDICATION 1 EA EA (Tizanidine HCl 2 MG) PO PRN (12:30)
[2023-04-18] MEDS ORDERED: NON-FORMULARY MEDICATION 1 EA EA (Naproxen Sodium (Aleve) 220 MG) PO PRN (12:30)
[2023-04-18] MEDS ORDERED: NON-FORMULARY MEDICATION 1 EA EA (Midodrine HCl 5 MG) PO SCH (13:00)
[2023-04-18 13:38] VITALS: BP 159/95
[2023-04-18] MEDS: MIDODRINE 10 MG (PROAMATINE) TAB PO SCH ×2 (14:07→17:16)
[2023-04-18] MEDS: GABAPENTIN 300 MG (NEURONTIN) CAP PO SCH ×2 (14:07→19:44)
--- NOTE | 2023-04-18 14:17 | Physical Therapy Progress Note ---
Therapy Progress Note Attempted to see patient for PT initial evaluation. Patient refuse stating he hurts too much. Patient was educated on the benefits of activity to promote healing, however continued to refuse. Will attempt again tomorrow. GARTH PASTOR PT Apr 18, 2023 14:17
[2023-04-18 15:37] VITALS: BP 152/88
[2023-04-18 19:35] VITALS: BP 122/76
[2023-04-18] MEDS: QUEtiapine 100 MG (SEROquel) TAB IMMEDIATE RELEASE PO SCH (19:44)
[2023-04-18 23:33] VITALS: BP 106/59
[2023-04-18 23:56] VITALS: BP 86/60
[2023-04-19] VITALS (7 sets, daily range): BP systolic 86–178; BP diastolic 51–86
[2023-04-19] MEDS: MELATONIN 3 MG TABLET PO PRN (00:06)
[2023-04-19] MEDS: ACETAMINOPHEN 325 MG TABLET PO PRN (00:13)
[2023-04-19] MEDS ORDERED: NS IV 1000 ML 1,000 ML IV ONE (00:15)
[2023-04-19] MEDS: MULTIVIT W/MINERALS TAB (THERAGRAN M) PO SCH (06:02)
[2023-04-19] MEDS: THIAMINE 100 MG (VITAMIN B-1) TAB PO SCH (06:02)
[2023-04-19 06:20] LABS: BASOPHILS % (AUTO) 1 % (0-10); EOSINOPHILS # (AUTO) 0.5 10^3/uL (0.0-0.3); EOSINOPHILS % (AUTO) 8 % (0-10); HEMATOCRIT 32 % (40-54); HEMOGLOBIN 10.5 g/dL (13.3-17.7); LYMPHOCYTES # (AUTO) 1.5 10^3/uL (1.0-4.0); LYMPHOCYTES % (AUTO) 23 % (12-44); MEAN CORPUSCULAR HEMOGLOBIN 33 pg (25-34); MEAN CORPUSCULAR HGB CONC 33 g/dL (32-36); MEAN CORPUSCULAR VOLUME 102 fL (80-99); MEAN PLATELET VOLUME 10.6 fL (9.0-12.2); MONOCYTES # (AUTO) 1.6 10^3/uL (0.0-1.0); MONOCYTES % (AUTO) 25 % (0-12); NEUTROPHILS # (AUTO) 2.6 10^3/uL (1.8-7.8); NEUTROPHILS % (AUTO) 42 % (42-75); PLATELET COUNT 145 10^3/uL (130-400); WHITE BLOOD COUNT 6.3 10^3/uL (4.3-11.0)
[2023-04-19 06:33] LABS: ALBUMIN 2.2 GM/DL (3.2-4.5); CHLORIDE 111 MMOL/L (98-107); POTASSIUM 3.6 MMOL/L (3.6-5.0); SODIUM 138 MMOL/L (135-145)
[2023-04-19 06:34] LABS: CALCIUM 8.3 MG/DL (8.5-10.1)
[2023-04-19 06:35] LABS: GLUCOSE 96 MG/DL (70-105); TOTAL PROTEIN 4.5 GM/DL (6.4-8.2)
[2023-04-19 06:36] LABS: CARBON DIOXIDE 23 MMOL/L (21-32)
[2023-04-19 06:38] LABS: ALKALINE PHOSPHATASE 43 U/L (40-136)
[2023-04-19 06:39] LABS: CREATININE SERUM 0.65 MG/DL (0.60-1.30); GFR ESTIMATED 107
[2023-04-19 06:40] LABS: BUN/CREATININE RATIO 12
[2023-04-19 06:41] LABS: MAGNESIUM 1.5 MG/DL (1.6-2.4)
[2023-04-19] MEDS: POTASSIUM CL 10MEQ/50ML IVPB 50 ML IV SCH (06:41)
[2023-04-19 06:42] LABS: ALANINE AMINOTRANSFERASE 30 U/L (0-55)
[2023-04-19] MEDS: KCL 20 MEQ TAB (K-DUR) PO SCH (06:46)
[2023-04-19] MEDS: MAGNESIUM 1 GM/100 ML IVPB 100 ML IV SCH ×5 (06:48→10:41)
[2023-04-19 06:57] LABS: EOSINOPHILS % (MANUAL) 8 %; LYMPHOCYTES % (MANUAL) 27 %; MONOCYTES % (MANUAL) 20 %; NEUTROPHILS % (MANUAL) 44 %; RBC MORPH NORMAL; REACTIVE LYMPHOCYTES 1 %
[2023-04-19 07:43] LABS: BILIRUBIN,TOTAL < 0.1 MG/DL (0.1-1.0)
--- NOTE | 2023-04-19 07:59 | Progress Note - Hospitalist ---
Subjective HPI/CC On Admission Date Seen by Provider: Apr 19, 2023 Time Seen by Provider: 11:00 Chief complaint: Alcohol withdrawal HPI: This is a 62-year-old male who presented to the [place] ER in alcohol withdrawal. He has been trying to quit alcohol but having difficulty and began having delusions. Currently he will require Precedex for agitation and he is high risk for seizures. Subjective/Events-last exam Patient doing about the same Blood pressure was low last night requiring IV fluids Patient feels pretty good except he did have emesis this morning Not interested in any type of treatment for alcohol or drugs Review of Systems General: Fatigue, Malaise Objective Exam Vital Signs Vital Signs Date Time Temp Pulse Resp B/P (MAP) Pulse Ox O2 Delivery O2 Flow Rate FiO2 04/19/23 19:27 36.8 80 19 178/86 (116) 98 Room Air 04/17/23 16:00 2.00 04/17/23 14:09 21 Capillary Refill : Less Than 3 Seconds General Appearance: No Apparent Distress, WD/WN, Chronically ill Respiratory: Lungs Clear, Normal Breath Sounds Cardiovascular: Regular Rate, Rhythm Neurologic/Psychiatric: Alert, Oriented x3 Results/Procedures Lab Laboratory Tests 04/19/23 05:43 Patient resulted labs reviewed. Assessment/Plan Assessment and Plan Assess & Plan/Chief Complaint Assessment: Alcohol withdrawal Bacterial bronchitis COPD Plan: Fourth floor Continue treatment Critical Care Critically Ill Patient SANJAY REDD DO Apr 19, 2023 07:59
[2023-04-19] MEDS: GABAPENTIN 300 MG (NEURONTIN) CAP PO SCH ×3 (08:41→19:20)
[2023-04-19] MEDS: FAMOTIDINE 20 MG (PEPCID) TABLET PO SCH (08:41)
[2023-04-19] MEDS: FOLIC ACID 1 MG TAB PO SCH (08:41)
[2023-04-19] MEDS: DULoxetine 30 MG (CYMBALTA) CAP PO SCH (08:41)
[2023-04-19] MEDS: PANTOPRAZOLE 40 MG (PROTONIX) TAB PO SCH (08:42)
[2023-04-19] MEDS: CLOPIDOGREL 75 MG (PLAVIX) TABLET PO SCH (08:42)
[2023-04-19] MEDS ORDERED: KCL 20 MEQ TAB (K-DUR) PO ONE (09:00)
[2023-04-19] MEDS ORDERED: NON-FORMULARY MEDICATION 1 EA EA (Multivitamin 1 EACH) PO SCH (09:00)
[2023-04-19] MEDS ORDERED: NON-FORMULARY MEDICATION 1 EA EA (Duloxetine HCl 60 MG) PO SCH (09:00)
[2023-04-19] MEDS: meTOprolol SUCCINATE 100 MG (TOPROL XL) TAB PO SCH (09:44)
[2023-04-19] MEDS: DOCUSATE SODIUM 100 MG (COLACE) CAP PO SCH ×2 (09:44→19:22)
[2023-04-19] MEDS: MIDODRINE 10 MG (PROAMATINE) TAB PO SCH ×3 (09:44→18:42)
[2023-04-19] MEDS: NAPROXEN 250 MG (NAPROSYN) TABLET PO PRN ×2 (10:47→20:45)
--- NOTE | 2023-04-19 11:17 | Physical Therapy Progress Note ---
Therapy Progress Note Patient adamantly declined PT due to an MOYA. RN notified 1 ref BE DE SANTIAGO PT Apr 19, 2023 11:17
[2023-04-19] MEDS: NS IV 1000 ML 1,000 ML IV SCH ×3 (12:04→22:58)
--- NOTE | 2023-04-19 14:22 | Occupational Therapy Eval ---
OT Evaluation-General/PLF Medical Diagnosis Admission Date Apr 13, 2023 at 18:13 Medical Diagnosis: alchol withdraw Onset Date: Apr 13, 2023 Therapy Diagnosis Therapy Diagnosis: weakness Precautions Precautions/Isolations: Fall Prevention, Standard Precautions Referral Referral Reason: Evaluation/Treatment Medical History Additional Medical History This is a 62-year-old male who presented to the [place] ER in alcohol withdrawal. He has been trying to quit alcohol but having difficulty and began having delusions. Currently he will require Precedex for agitation and he is high risk for seizures Current History During evaluation patient reports he broke his leg, Patient shows OT healed scar on Left femur. Reports he needs his cane but does not know where it is. He also reports he has walked ot the bathroom. RN reports use of BSC and assist w/ transfer no ambulation. Rosanne request OT to go to [facility] to get his cane. OT provided FWW and education. Reviewed History: Yes Social History Home: Current Living Status: Homeless ADL-Prior Level of Function SCALE: Activities may be completed with or without assistive devices. 1-Nddttxqjkw-mafvbde completes the activity by him/herself with no assistance from a helper. 5-Set-up or Clean-up Assistance-helper sets up or cleans up; patient completes activity. [place] assists only prior to or following the activity. 4-Supervision or Touching Assistance-helper provides verbal cues and/or t ouching/steadying and/or contact guard assistance as patient completes activity. Assistance may be provided throughout the activity or intermittently. 3-Partial/Moderate Assistance-helper does LESS THAN HALF the effort. [place] lifts, holds or supports trunk or limbs, but provides less than half the effort. 2-Substantial/Maximal Assistance-helper does MORE THAN HALF the effort. [place] lifts or holds trunk or limbs and provides more than half the effort. 2-Gzwuozhpv-jpqacr does ALL the effort. Patient does none of the effort to complete the activity. Or, the assistance of 2 or more helpers is required for the patient to complete the activity. If activity was not attempted, code reason: 7-Patient Refused. 9-Not Applicable-not attempted and the patient did not perform the activity before the current illness, exacerbation or injury. 10-Not Attempted due to Environmental Limitations-(lack of equipment, weather restraints, etc.). 88-Not Attempted due to Medical Conditions or Safety Concerns. Self Care: Independent Functional Cognition: Independent OT Current Status Subjective Reluctant to therapy intervention but agrees. Mental Status/Objective Patient Orientation: Person, Place Attachments: Christian Catheter, IV Current Upper Extremity ROM BUE ROM WFLS Upper Extremity Coordination impaired static and dynamic balance Upper Extremity Strength -4/5 BUE grossly vision in right eye only ADL-Treatment Eating (QC): 6 (prefers cold ccoffee) Oral Hygiene (QC): 6 Shower/Bathe Self (QC): 7 (recommended) Upper Body Dressing (QC): 4 Lower Body Dressing (QC): 4 On/Off Footwear (QC): 5 (supine in bed) Toileting Hygiene (QC): 4 Education OT Patient Education: Correct positioning, Exercise program, Modified ADL techniques, Progress toward Goal/Update tx plan, Purpose of tx/functional activities, Reviewed precautions, Rehab process, Safety issues, Transfer techniques, Use of adapted equipment Teaching Recipient: Patient Teaching Methods: Demonstration, Discussion Response to Teaching: Verbalize Understanding, Reinforcement Needed OT Chcf Goals Rolled Seat Trimmer Goals Eating (QC): 6 Oral Hygiene (QC): 6 Toileting Hygiene (QC): 6 Shower/Bathe Self (QC): 6 Upper Body Dressing (QC): 6 Lower Body Dressing (QC): 6 On/Off Footwear (QC): 6 1=Demonstrate adherence to instructed precautions during ADL tasks. 2=Patient will verbalize/demonstrate understanding of assistive devices/modifications for ADL. 3=Patient will improve strength/tolerance for activity to enable patient to perform ADL's. OT Education/Plan Problem List/Assessment Assessment: Decreased Activ Tolerance, Decreased Safety Aware, Decreased UE St rength, Impaired Coordination, Impaired Funct Balance, Impaired Self-Care Skills Discharge Recommendations Plan/Recommendations: Continue POC Treatment Plan/Plan of Care Treatment,Training & Education: Yes Patient would benefit from OT for education, treatment and training to promote independence in ADL's, mobility, safety and/or upper extremity function for ADL's. Plan of Care: ADL Retraining, Cognitive Retraining, Concurrent Therapy, Functional Mobility, Group Exercise/Act as Ind, UE Funct Exercise/Act Treatment Duration: Apr 28, 2023 Frequency: 3 times per week (3-5 times per week) Estimated Hrs Per Day: .25 hour per day Agreement: Yes Rehab Potential: Fair Time Start Time: :00 Stop Time: 11:17 DATE: Apr 19, 2023 Total Time Billed (hr/min): 17 Billed Treatment Time EVM 17 ZHANNA BRADY OT Apr 19, 2023 14:22
[2023-04-19] MEDS: LABETALOL HCL 20 MG/4 ML VIAL IV PRN (20:06)
[2023-04-19] MEDS: QUEtiapine 100 MG (SEROquel) TAB IMMEDIATE RELEASE PO SCH (20:45)
[2023-04-20 03:32] VITALS: BP 126/71
[2023-04-20] MEDS: THIAMINE 100 MG (VITAMIN B-1) TAB PO SCH (05:19)
[2023-04-20] MEDS: MULTIVIT W/MINERALS TAB (THERAGRAN M) PO SCH (05:19)
[2023-04-20 05:45] LABS: BASOPHILS # (AUTO) 0.1 10^3/uL (0.0-0.1); BASOPHILS % (AUTO) 1 % (0-10); EOSINOPHILS # (AUTO) 0.4 10^3/uL (0.0-0.3); EOSINOPHILS % (AUTO) 7 % (0-10); HEMATOCRIT 32 % (40-54); HEMOGLOBIN 10.4 g/dL (13.3-17.7); LYMPHOCYTES # (AUTO) 1.1 10^3/uL (1.0-4.0); LYMPHOCYTES % (AUTO) 18 % (12-44); MEAN CORPUSCULAR HEMOGLOBIN 33 pg (25-34); MEAN CORPUSCULAR HGB CONC 32 g/dL (32-36); MEAN CORPUSCULAR VOLUME 101 fL (80-99); MEAN PLATELET VOLUME 10.3 fL (9.0-12.2); MONOCYTES # (AUTO) 1.8 10^3/uL (0.0-1.0); MONOCYTES % (AUTO) 29 % (0-12); NEUTROPHILS # (AUTO) 2.7 10^3/uL (1.8-7.8); NEUTROPHILS % (AUTO) 43 % (42-75); PLATELET COUNT 200 10^3/uL (130-400); WHITE BLOOD COUNT 6.2 10^3/uL (4.3-11.0)
[2023-04-20 06:04] LABS: ALBUMIN 2.4 GM/DL (3.2-4.5)
[2023-04-20 06:05] LABS: POTASSIUM 4.1 MMOL/L (3.6-5.0)
[2023-04-20 06:06] LABS: CALCIUM 8.4 MG/DL (8.5-10.1)
[2023-04-20 06:07] LABS: TOTAL PROTEIN 4.7 GM/DL (6.4-8.2)
[2023-04-20 06:09] LABS: BILIRUBIN,TOTAL 0.1 MG/DL (0.1-1.0)
[2023-04-20] MEDS: KCL 20 MEQ TAB (K-DUR) PO SCH (06:09)
[2023-04-20] MEDS: POTASSIUM CL 10MEQ/50ML IVPB 50 ML IV SCH (06:09)
[2023-04-20 06:11] LABS: CREATININE SERUM 0.67 MG/DL (0.60-1.30)
[2023-04-20 06:14] LABS: MAGNESIUM 1.5 MG/DL (1.6-2.4)
[2023-04-20] MEDS: MAGNESIUM 1 GM/100 ML IVPB 100 ML IV SCH ×5 (06:26→10:13)
[2023-04-20 07:34] VITALS: BP 119/69
--- NOTE | 2023-04-20 07:46 | Physical Therapy Progress Note ---
Therapy Progress Note Patient adamantly refused PT. Patient to return to [facility] on this date per report. PT to dismiss patient from services at this time BE DE SANTIAGO PT Apr 20, 2023 07:46
[2023-04-20] MEDS: FAMOTIDINE 20 MG (PEPCID) TABLET PO SCH (08:13)
[2023-04-20] MEDS: CLOPIDOGREL 75 MG (PLAVIX) TABLET PO SCH (08:13)
[2023-04-20] MEDS: GABAPENTIN 300 MG (NEURONTIN) CAP PO SCH ×2 (08:13→13:21)
[2023-04-20] MEDS: DOCUSATE SODIUM 100 MG (COLACE) CAP PO SCH (08:13)
[2023-04-20] MEDS: PANTOPRAZOLE 40 MG (PROTONIX) TAB PO SCH (08:13)
[2023-04-20] MEDS: DULoxetine 30 MG (CYMBALTA) CAP PO SCH (08:13)
[2023-04-20] MEDS: meTOprolol SUCCINATE 100 MG (TOPROL XL) TAB PO SCH (08:13)
[2023-04-20] MEDS: FOLIC ACID 1 MG TAB PO SCH (08:13)
[2023-04-20] MEDS: MIDODRINE 10 MG (PROAMATINE) TAB PO SCH ×2 (08:21→13:22)
[2023-04-20] MEDS ORDERED: CLOP75TA28 PO (11:14)
[2023-04-20] MEDS ORDERED: TIZA-169 PO (11:14)
[2023-04-20] MEDS ORDERED: DULO60CA59 PO (11:14)
[2023-04-20] MEDS ORDERED: MIDO5TAB3 PO (11:14)
[2023-04-20] MEDS ORDERED: QUET100T33 PO (11:14)
[2023-04-20] MEDS ORDERED: MTP100TCR PO (11:14)
[2023-04-20] MEDS ORDERED: MULT-1136 PO (11:14)
[2023-04-20] MEDS ORDERED: THIA100T80 PO (11:14)
[2023-04-20] MEDS ORDERED: FOLI1TAB33 PO (11:14)
--- NOTE | 2023-04-20 11:14 | Discharge Summary ---
Discharge Summary Hospital Course Was the Problem List Reviewed?: Yes Problems/Dx: (1) Alcohol withdrawal Status: Acute Qualifiers: Qualified Codes: F10.939 - Alcohol use, unspecified with withdrawal, unspecified (2) Electrolyte abnormality Status: Acute (3) Hyponatremia Status: Acute (4) Hypomagnesemia Status: Acute Hospital Course Date of Admission: Apr 13, 2023 at 18:13 Admission Diagnosis : Family Physician/Provider: Mitchell Beltran MD Date of Discharge: 04/20/23 Discharge Diagnosis: [ ] Hospital Course: Patient had a lengthy course postoperatively in ICU after he was admitted for severe alcohol withdrawal requiring Precedex and multiple doses of benzodiazepines. Acute bronchitis early pneumonia placed on cefepime for treatment and he finished that time of discharge. Vitamin supplementation maintained and supportive care and he was deemed stable for discharge. Labs and Pending Lab Test: Laboratory Tests 04/20/23 05:15: White Blood Count 6.2, Red Blood Count 3.18L, Hemoglobin 10.4L, Hematocrit 32L, Mean Corpuscular Volume 101H, Mean Corpuscular Hemoglobin 33, Mean Corpuscular Hemoglobin Concent 32, Red Cell Distribution Width 13.9, Platelet Count 200, Mean Platelet Volume 10.3, Immature Granulocyte % (Auto) 2, Neutrophils (%) (Auto) 43, Lymphocytes (%) (Auto) 18, Monocytes (%) (Auto) 29H, Eosinophils (%) (Auto) 7, Basophils (%) (Auto) 1, Neutrophils # (Auto) 2.7, Lymphocytes # (Auto) 1.1, Monocytes # (Auto) 1.8H, Eosinophils # (Auto) 0.4H, Basophils # (Auto) 0.1, Immature Granulocyte # (Auto) 0.1, Sodium Level 137, Potassium Level 4.1, Chloride Level 109H, Carbon Dioxide Level 24, Anion Gap 4L, Blood Urea Nitrogen 8, Creatinine 0.67, Estimat Glomerular Filtration Rate 106, BUN/Creatinine Ratio 12, Glucose Level 106H, Calcium Level 8.4L, Corrected Calcium 9.7, Magnesium Level 1.5L, Total Bilirubin 0.1, Aspartate Amino Transf (AST/SGOT) 26, Alanine Aminotransferase (ALT/SGPT) 38, Alkaline Phosphatase 41, Total Protein 4.7L, Albumin 2.4L Microbiology 04/13/23 MRSA Screen - Final, Complete MRSA not isolated 04/13/23 Blood Culture - Final, Complete No growth Home Meds Active Vitamin B-1 (Thiamine HCl) 100 Mg Tablet 100 Mg PO DAILY@0700 Folic Acid 1 Mg Tablet 1 Mg PO DAILY Multivitamin 1 Each Tablet 1 Each PO DAILY Tizanidine HCl 2 Mg Tablet 2 Mg PO TID PRN Duloxetine HCl 60 Mg Capsule.dr 60 Mg PO DAILY Metoprolol Succinate 100 Mg Tab.er.24h 100 Mg PO DAILY Clopidogrel (Clopidogrel Bisulfate) 75 Mg Tablet 75 Mg PO DAILY Quetiapine Fumarate 100 Mg Tablet 100 Mg PO HS Midodrine HCl 5 Mg Tablet 5 Mg PO TIDWM Reported Aleve (Naproxen Sodium) 220 Mg Tablet 220 Mg PO Q8H PRN Neurontin (Gabapentin) 300 Mg Capsule 300 Mg PO TID Acid Bearing Machine Operator (FAMOTIDINE) (Famotidine) 20 Mg Tablet 20 Mg PO HS PRN Famotidine 20 Mg Tablet 20 Mg PO DAILY Assessment/Pt Instructions PCP in 1 week Discharge Planning: <30 minutes discharge planning Discharge Physical Examination Vital Signs Vital Signs Date Time Temp Pulse Resp B/P (MAP) Pulse Ox O2 Delivery O2 Flow Rate FiO2 04/20/23 08:00 Room Air 04/20/23 07:34 36.6 76 16 119/69 (86) 96 04/17/23 16:00 2.00 04/17/23 14:09 21 General Appearance: No Apparent Distress, WD/WN, Chronically ill Allergies: Coded Allergies: No Known Drug Allergies (Unverified , 01/21/20) Discharge Summary Date of Admission Apr 13, 2023 at 18:13 Date of Discharge Discharge Date: Apr 20, 2023 Admission Diagnosis Assessment: Acute alcohol withdrawal Sepsis placed on cefepime empirically for upper respiratory illness Plan: ICU Precedex IV antibiotics Supportive care Discharge Diagnosis Assessment: Alcohol withdrawal Bacterial bronchitis COPD Plan: Fourth floor Continue treatment SANJAY REDD DO Apr 20, 2023 11:14
[2023-04-20 12:01] VITALS: BP 172/90
[2023-04-20] MEDS: ACETAMINOPHEN 325 MG TABLET PO PRN (13:22)
== END 2023-04-20 16:09 | disposition home or self-care (01) | DRG 896 ==
LOC: EDUNIT# 15:31 → ER FS 15:32 → ICU 18:13 → 4TH 04-18 13:04
PROVIDERS: ADMIT Internal Medicine; ATTEND Internal Medicine
DX: F10.231 Alcohol dependence with withdrawal delirium (principal); A41.9 Sepsis, unspecified organism; E87.1 Hypo-osmolality and hyponatremia; J20.9 Acute bronchitis, unspecified; E86.0 Dehydration; E87.5 Hyperkalemia; E83.42 Hypomagnesemia; R73.9 Hyperglycemia, unspecified; J44.9 Chronic obstructive pulmonary disease, unspecified; I10 Essential (primary) hypertension; F17.210 Nicotine dependence, cigarettes, uncomplicated; D69.6 Thrombocytopenia, unspecified; H54.7 Unspecified visual loss; Z79.01 Long term (current) use of anticoagulants; Z79.899 Other long term (current) drug therapy; Y90.0 Blood alcohol level of less than 20 mg/100 ml
CPT/HCPCS: 36415; 71045; 80053; 80306; 80320; 81000; 82947; 83036; 83605; 83690; 83735; 84100; 84484; 85007; 85025; 85027; 86022; 87040; 87081; 93005; 94760